=== PATIENT | male | born 1935 | race Caucasian/White ===

== ENCOUNTER 2016-11-10 19:40 | Inpatient (IN) ==
--- NOTE | 2016-11-10 19:57 | Emergency Department Note ---
Disposition Clinical Impression: Abdominal pain Qualifiers: Abdominal location: generalized Qualified Code(s): R10.84 - Generalized abdominal pain Pancreatitis, acute Qualifiers: Pancreatitis type: unspecified pancreatitis type Acute pancreatitis complication: unspecified Qualified Code(s): K85.90 - Acute pancreatitis without necrosis or infection, unspecified Disposition: Admitted As Inpatient Condition: Fair Referrals: Unassigned,Provider [Non-Partnered Physician] - Forms: Work/School Release, ED Satisfaction Letter Abdominal Pain HPI - General Chief Complaint: ED Abdominal Pain Stated Complaint: ABD pain Time Seen by Provider: 11/10/16 19:51 Source: patient, EMS Nursing Notes Reviewed: Yes Vital Signs Reviewed: Yes - History of Present Illness HPI Narrative: Mr. John, an 81-year-old male, presents from the [facility] via EMS with chief complaint of abdominal pain. Onset last night; patient is unsure if it was acute or gradual in onset. Described as an epigastric dullness with intermittent epigastric sharpness. It is progressed and to now include periumbilical and hypogastric pain also with underlying dullness and intermittent sharpness. Improved with a reclined position, worsens when sitting upright. Patient denies fever, chills, nausea, vomiting, chest pains, palpitations, changes in appetite, diarrhea, constipation, melena, hematochezia , difficulty with urination. He does not slightly darker urine. Patient currently anticoagulated on eliquis. PMH per [facility] documentation: A. 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 Medications: Albuterol, gabapentin 600 mg by mouth 3 times a day, aspirin 81 mg daily, metoprolol 50 mg twice a day, digoxin 0.125 mg daily, translucent and to a gram daily, apixiban 5 mg twice a day. Pain Scale: 10 - Related Data Allergies Allergy/AdvReac Type Severity Reaction Status Date / Time aspirin AdvReac Nausea Verified 11/10/16 19:50 codeine AdvReac Nausea Verified 11/10/16 19:50 Sulfa (Sulfonamide AdvReac Hives Verified 11/10/16 19:50 Antibiotics) All systems ED: reviewed and negative except as stated. Constitutional: Denies: fever, chills, weakness Cardiovascular: Denies: chest pain, palpitations, dyspnea on exertion, orthopnea , edema, syncope Respiratory: Denies: cough, dyspnea, wheezes Gastrointestinal: Reports: abdominal pain. Denies: nausea, vomiting, diarrhea, constipation, hematemesis, melena, hematochezia Genitourinary: Denies: urgency, dysuria, frequency Musculoskeletal: Denies: back pain, neck pain Integumentary: Denies: rash Neurological: Denies: headache, weakness Hematological/Lymphatic: Reports: easy bleeding, easy bruising Abdominal Pain PMH - Past Medical History Medical history: Reports: atrial fibrillation, cancer, COPD, hyperlipidemia, hypertension, other Male Surgical History: Reports: appendectomy Psychiatric history: Reports: no psych history - Social History Smoking status: Current some day smoker Alcohol use: Reports: none Drug use: Reports: none Physical Exam General: Patient is alert, oriented, and in no acute distress. HEENT: No facial asymmetry. Head is normocephalic and atraumatic. PERRLA. Oral mucosa moist. Trachea midline. Cardiovascular: Heart regular rate and rhythm without clicks, rubs, gallops, or murmurs. No JVD. PMI nondisplaced. Respiratory: Symmetric chest rise with good respiratory effort. Bilateral breath sounds are clear without wheezing, crackles, or rhonchi. Abdomen: Bowel sounds present normoactive x-4 quadrants. Abdomen is soft, nondistended, and without guarding. Tenderness in epigastrium, periumbilical, and hypogastrium. Psych: Patient's affect is appropriate for situation. - General Limitations: no limitations General appearance: alert, in no apparent distress Course Course Narrative: Lab work from the [facility] resulted to 11/10/16: Influenza A negative influenza B negative WBC 8.9 Hgb 12.0 HCT 36.6 PLT 248.0 Calcium 8.7 Sodium 140 Potassium 4.2 Chloride 107 CO2 26 Glucose 124 Viewing 9 Creatinine 0.96 eGFR >60 Urinalysis performed at the [facility] resulted 11/10/16: Clarity clear Color yellow Urine glucose negative Urine bilirubin negative Urine ketones negative Specific gravity 1.013 Urine occult blood negative Urine pH 5.5 Urine protein trace Urobilinogen negative Urine nitrite negative Urine leukocyte esterace negative Patient's urinalysis is not concerning for UTI. CBC is not concerning for leukocytosis or anemia. My clinical differential still includes pancreatitis, possible AAA, possible embolic mesenteric ischemia. Vital Signs Temperature 97.5 F L 11/10/16 19:41 Pulse Rate 67 11/10/16 19:41 Respiratory Rate 18 11/10/16 19:41 Blood Pressure 121/77 11/10/16 19:41 O2 Sat by Pulse Oximetry 95 11/10/16 19:41 Temperature 97.5 F L 11/10/16 19:41 Pulse Rate 73 11/10/16 21:38 Respiratory Rate 16 11/10/16 21:38 Blood Pressure 125/70 11/10/16 21:38 O2 Sat by Pulse Oximetry 90 L 11/10/16 21:40 Oxygen Delivery Oxygen Delivery Nasal Cannula Abdominal Pain - MDM Narrative Medical decision making narrative: I examined this patient and my medical decision-making was reviewed with the SPECIAL WARFARE OPERATOR/PA/Advanced Practice Nurse/Resident Physician. I agree with the documented findings, disposition and treatment plan as described except to the extent set forth below. Patient was seen and evaluated on arrival with EMS and Dr. Zelaya, I agree with his evaluation and management plan, supervise care the patient up today. Patient presents with abdominal pain and a sense of epigastric and fingers down to his umbilicus. Nonsurgical exam here. [facility] and an [facility]ray no CT was done. EKG CT of his abdomen and then reassess. He is in agreement with plan. We will give him some for pain and nausea also. Abdomen/Pelvis CTA 11/10/16 20:01 IMPRESSION: 1. No aortic dissection, aneurysm, or other acute vascular abnormality. 2. Diffuse peripancreatic stranding with a small volume of fluid in the right upper quadrant and pelvis. Findings most likely represent acute uncomplicated pancreatitis. Other less likely etiologies include peptic ulcer disease and acute cholecystitis. Recommend correlation with serum amylase and lipase and right upper quadrant ultrasound as clinically indicated. 3. COPD. 4. Nonspecific mildly enlarged distal right paratracheal lymph node. D/ / Gary Shaw MD / Gary Shaw MD Interpreting Provider: Gary Shaw MD Chest CTA 11/10/16 20:01 IMPRESSION: 1. No aortic dissection, aneurysm, or other acute vascular abnormality. 2. Diffuse peripancreatic stranding with a small volume of fluid in the right upper quadrant and pelvis. Findings most likely represent acute uncomplicated pancreatitis. Other less likely etiologies include peptic ulcer disease and acute cholecystitis. Recommend correlation with serum amylase and lipase and right upper quadrant ultrasound as clinically indicated. 3. COPD. 4. Nonspecific mildly enlarged distal right paratracheal lymph node. D/ / Gary Shaw MD / Gary Shaw MD Interpreting Provider: Gary Shaw MD 2000 hrs.: Patient's lipase is elevated along with his CT findings of acute pancreatitis or guarding and bring him into the hospital. This pain is doing better after getting several doses of morphine here and antibiotics. He still nothing by mouth at this time. Waiting on hospitalist call back. - Medical Records Medical records reviewed: Yes I reviewed the patient's medical records. - Lab Data Lab results reviewed: Yes I reviewed the patient's lab results. Lab results narrative: See course narrative for additional lab workup provided by the [facility]. Lab Results 11/10/16 11/10/16 Range/Units 20:35 20:35 Lactic Acid 1.0 (0.5-2.2) mmol/L Total Bilirubin 1.8 H (0.2-1.2) mg/dL Direct Bilirubin 0.8 H (0.0-0.5) mg/dL Indirect Bilirubin 1.0 (0.0-1.2) mg/dL AST 95 H (5-34) Units/L ALT 99 H (0-55) Units/L Alkaline Phosphatase 132 H (38-126) Units/L Serum Total Protein 6.1 (6.0-8.3) g/dL Albumin 3.5 (3.5-5.0) g/dL Globulin 2.6 (2.4-3.5) g/dL Albumin/Globulin Ratio 1.3 (1.1-2.2) Lipase 3030 H (8-78) Units/L - EKG Data EKG attestation: Yes I reviewed and interpreted this EKG. EKG results narrative: EKG dated 11/10/16 at 19:51 interpreted as atrial fibrillation with a rate of 63. Left axis. Compared to previous dated 09/20/2011 which is read as sinus rhythm. Patient's atrial fibrillation is chronic versus anticoagulate as a look was and rate controlled with metoprolol and digoxin.
[2016-11-10] MEDS ORDERED: Ondansetron 4 MG/2 ML VIAL IVP STA (20:00)
[2016-11-10 20:54] LABS: Albumin 3.5 g/dL (3.5-5.0); Albumin/Globulin Ratio 1.3 (1.1-2.2); Bilirubin,Direct 0.8 mg/dL (0.0-0.5); Bilirubin,Total 1.8 mg/dL (0.2-1.2); Globulin 2.6 g/dL (2.4-3.5); Total Protein 6.1 g/dL (6.0-8.3)
[2016-11-10] MEDS ORDERED: *HR* Morphine 2 MG/ML SYRINGE IVP ONE (21:25)
[2016-11-10] MEDS ORDERED: 0.9 % Sodium Chloride 1,000 ML IVC ONE ×2 (21:25→22:16)
[2016-11-10] MEDS ORDERED: *HR* Morphine 2 MG/ML SYRINGE IVP STA (21:57)
[2016-11-10] MEDS ORDERED: Pantoprazole 40 MG VIAL IVP ONE (22:15)
[2016-11-10] MEDS ORDERED: Ondansetron 4 MG/2 ML VIAL IVP PRN (23:29)
[2016-11-10] MEDS ORDERED: Naloxone 0.4 MG/ML INJ IVP PRN (23:29)
[2016-11-10] MEDS ORDERED: 0.9 % Sodium Chloride 1,000 ML IVC SCH (23:30)
[2016-11-10] MEDS ORDERED: *HR* Morphine 30 MG/ 30 ML PCA IVC PRN (23:32)
--- NOTE | 2016-11-10 23:37 | Internal Med History&Physical ---
<Flor Watkins - Last Filed: 11/11/16 00:37> Date of Encounter: 11/10/16 Time of Encounter: 23:35 Assessment and Plan (1) Pancreatitis, acute Current visit: Yes Status: Acute IVF pain control supplemental O2 PRN MRCP repeat labs in AM Qualifiers: Pancreatitis type: unspecified pancreatitis type Acute pancreatitis complication: unspecified Qualified Code(s): K85.90 - Acute pancreatitis without necrosis or infection, unspecified (2) A-fib Current visit: Yes Status: Chronic rate controlled in sinus rhythm during my physical continue home medication Qualifiers: Atrial fibrillation type: paroxysmal Qualified Code(s): I48.0 - Paroxysmal atrial fibrillation (3) COPD (chronic obstructive pulmonary disease) Current visit: Yes Status: Chronic continue home medication Qualifiers: COPD type: unspecified COPD Qualified Code(s): J44.9 - Chronic obstructive pulmonary disease, unspecified (4) HTN (hypertension) Current visit: Yes Status: Chronic continue home medication Qualifiers: Hypertension type: essential hypertension Qualified Code(s): I10 - Essential (primary) hypertension Internal Medicine - H&P: HPI Chief complaint: abdominal pain Admitted From: Hospital to Hospital Transfer Plans for Post Hospital Care: Home History of present illness: Mr. John is a 81 year old male with a PMH of HTN, HLD, paroxysmal a-fib, who has a CC of abdominal pain x2 days. He states that the pain started yesterday morning and is located high, under his ribs. Nothing makes the pain better or worse. He denies associated nausea, vomiting, diarrhea, shortness of breath, or chest pain. Poor historian at time of interview. Past Med Surg Social Fam HX - Past Medical History Source: old records reviewed Medical history: atrial fibrillation, cancer (bladder), COPD, hyperlipidemia, hypertension, other (thalassemia, BPH, hydrocephalus s/p shunt) Psychiatric history: no psych history - Past Surgical History Surgical History: appendectomy, hip replacement, other (hydrocephalus shunt) - Social History Smoking Status: Former smoker Smokeless Tobacco Status: No Alcohol use: none Drug use: none - Family History Daughter Name: Courtney Dickens Age: 45 Hx Family Cardiac Disorders: No Hx Family Respiratory Disorders: Yes (Asthma) Hx Family Cancer: No Hx Family GI Disorders: No Hx Family Genitourinary Disorders: No Hx Family Endocrine Disorder: No Hx Family Musculoskeletal Disorders: No Hx Family Neuromuscular Disorders: No Hx Family Neurologic Disorders: No Hx Family HEENT Disorders: No Hx Family Autoimmune Disorders: No Hx Family Reproductive Disorders: No Hx Family Psychosocial Disorders: No Hx Family Medical Disorders: Yes (thalathemia) Internal Medicine - H&P: Meds Albuterol Sulfate [Albuterol Inhaler] 2 puff IH QID PRN 11/10/16 [History] Apixaban [Eliquis] 5 mg PO BID 11/10/16 [History] Aspirin Enteric Coated [Aspirin EC] 81 mg PO DAILY 11/10/16 [History] Digoxin [Lanoxin] 0.125 mg PO DAILY 11/10/16 [History] Gabapentin [Neurontin] 600 mg PO TID 11/10/16 [History] Lidocaine 4% CRM (LMX) [Lmx 4] 1 appl TP TID 11/10/16 [History] Metoprolol [Lopressor] 50 mg PO BID 11/10/16 [History] Terazosin HCl 10 mg PO HS 11/10/16 [History] Allergies aspirin Adverse Reaction (Verified 11/10/16 19:50) Nausea codeine Adverse Reaction (Verified 11/10/16 19:50) Nausea Sulfa (Sulfonamide Antibiotics) Adverse Reaction (Verified 11/10/16 19:50) Hives All Systems PM: A 10-system review of systems was performed and is negative for pertinent findings except as documented above in the HPI. - Constitutional Constitutional: no chills, no fever(s), no night sweats - EENT Eyes: no change in vision, no discharge, no pain, no photophobia Ears: no ear discharge, no ear pain, no tinnitus Nose, mouth and throat: no dysphagia, no nasal discharge, no neck pain, no sore throat - Cardiovascular Cardiovascular ROS IM: no chest pain, no diaphoresis, no dyspnea, no lightheadedness, no palpitations, no syncope - Respiratory Respiratory: no cough, no dyspnea, no wheezing, no excessive phlegm production - Gastrointestinal Gastrointestinal: abdominal pain, no diarrhea, no hematemesis, no hematochezia, no melena, no nausea, no vomiting - Genitourinary Genitourinary ROS male: no dysuria, no urinary frequency, no urinary hesitancy, no urinary urgency - Musculoskeletal Musculoskeletal ROS IM: no numbness, no tingling - Integumentary Integumentary IM: no rash, no unusual bruising - Neurological Neurological ROS: no confusion, no convulsions, no focal weakness, no numbness, no tingling, no tremor(s) - Hematologic/Lymphatic Hematologic/Lymphatic: no easy bruising - Constitutional Vitals: Temp Pulse Resp BP Pulse Ox 97.5 F L 69 18 124/76 99 11/10/16 19:41 11/10/16 22:30 11/10/16 22:39 11/10/16 22:39 11/10/16 22:30 General appearance: Present: A&O X 3, pleasant, no acute distress - Head Head exam: Present: atraumatic, normocephalic - Eye Eye exam: Present: PERRL, conjuntiva pink, sclera anicteric Pupils: Present: PERRL - Neck Neck exam general surgery: Present: supple, trachea midline. Absent: lymphadenopathy - Respiratory Respiratory exam: Present: CTAB. Absent: accessory muscle use, rales, rhonchi, wheezes - Cardiovascular Cardiovascular exam: Present: RRR, +S1, +S2. Absent: diastolic murmur, gallop, rubs, systolic murmur - GI/Abdominal GI/Abdominal exam: Present: normal bowel sounds, soft, no peritoneal signs. Absent: distended, tenderness (patient had 12 mg morphine in ER before my physical exam - abdomen was tender per ER physician documentation) - Extremities Exam Extremities exam: Present: warm, radial pulses palpable and symetrical. Absent : calf tenderness, cyanotic, pedal edema - Neurological Exam Neurological exam: Present: CN II-XII intact, oriented X3, no focal deficits. Absent: pronater drift, facial droop, speech deficit - Skin Skin exam: Present: dry, intact <Mudduluru,Madhusudha R - Last Filed: 11/11/16 04:15> Assessment and Plan (1) Abnormal LFTs Current visit: Yes Status: Acute Will obtain MRCP to exclude cholecystitis / choledocholithiasis Internal Medicine - H&P: HPI History of present illness: Mr. John is a 81 year old male All Systems PM: A 10-system review of systems was performed and is negative for pertinent findings except as documented above in the HPI. - Constitutional Vitals: Temp Pulse Resp BP Pulse Ox 97.9 F 71 14 119/67 92 L 11/10/16 23:51 11/10/16 23:51 11/10/16 23:51 11/10/16 23:51 11/10/16 23:51 Internal Med - H&P Results - Impressions ITS Impressions Abdomen/Pelvis CTA 11/10/16 20:01 IMPRESSION: 1. No aortic dissection, aneurysm, or other acute vascular abnormality. 2. Diffuse peripancreatic stranding with a small volume of fluid in the right upper quadrant and pelvis. Findings most likely represent acute uncomplicated pancreatitis. Other less likely etiologies include peptic ulcer disease and acute cholecystitis. Recommend correlation with serum amylase and lipase and right upper quadrant ultrasound as clinically indicated. 3. COPD. 4. Nonspecific mildly enlarged distal right paratracheal lymph node. D/ / Gary Shaw MD / Gary Shaw MD Interpreting Provider: Gary Shaw MD Chest CTA 11/10/16 20:01 IMPRESSION: 1. No aortic dissection, aneurysm, or other acute vascular abnormality. 2. Diffuse peripancreatic stranding with a small volume of fluid in the right upper quadrant and pelvis. Findings most likely represent acute uncomplicated pancreatitis. Other less likely etiologies include peptic ulcer disease and acute cholecystitis. Recommend correlation with serum amylase and lipase and right upper quadrant ultrasound as clinically indicated. 3. COPD. 4. Nonspecific mildly enlarged distal right paratracheal lymph node. D/ / Gary Shaw MD / Gary Shaw MD Interpreting Provider: Gary Shaw MD - Attending Attestation I performed a history and physical examination of the patient and discussed his management with the Resident/Lacing Cutter (Dr Watkins). I reviewed the residents note and agree with the documented findings and plan of care, with additions as below. 81 year old male with a PMH of HTN, HLD, paroxysmal a-fib, [facility] with chief complaint of abdominal pain. He was evaluated in the ER in [facility] and was noted to have elevated lipase of 3030. CT abdomen and pelvis showed pancreatitis. Pt denies h/o alcohol abuse or prior h/ o cholilithiasis or hyperlipidemia. O/E: Diffuse abdominal tenderness, more in the epigastric region. A/P: Acute pancreatitis: Treat with IV fluids, analgesia; MRCP; lipid panel; NPO ; GI consultation Lab work from the [facility] resulted to 11/10/16: Influenza A negative influenza B negative WBC 8.9 Hgb 12.0 HCT 36.6 PLT 248.0 Calcium 8.7 Sodium 140 Potassium 4.2 Chloride 107 CO2 26 Glucose 124 BUN 9 Creatinine 0.96 eGFR >60 Urine nitrite negative Urine leukocyte esterace negative
[2016-11-11] MEDS ORDERED: *HR* Morphine 2 MG/ML SYRINGE IVP PRN ×3 (00:20→00:24)
[2016-11-11] MEDS: 0.9 % Sodium Chloride 1,000 ML IVC SCH ×5 (01:50→23:02)
[2016-11-11 05:17] LABS: Basophils % 0.3 %; Eosinophils # 0.2 K/mcL (0.0-0.6); Hematocrit 32.9 % (37.5-50.1); Hemoglobin 9.9 g/dL (12.9-16.9); Immature Granulocytes % 0.4 % (0-4); Lymphocytes # 1.7 K/mcL (0.6-4.6); Lymphocytes % 24.3 %; Mean Corpuscular HGB Conc 30.1 g/dL (31.6-35.5); Mean Corpuscular Hemoglobin 19.5 pg (28.0-33.3); Mean Corpuscular Volume 64.9 fL (83.0-100.0); Mean Platelet Volume 10.1 fL (9.4-12.4); Monocytes # 0.8 K/mcL (0.0-1.3); Monocytes % 10.8 %; Neutrophils # 4.3 K/mcL (1.6-8.9); Platelet Count 178 K/mcL (140-400); Red Blood Count 5.07 M/mcL (4.19-5.50); Red Cell Distribution Width 18.5 % (11.5-14.5); Segmented Neutrophils % 61.2 %
[2016-11-11] MEDS: Pantoprazole 40 MG VIAL IVP SCH (05:26)
[2016-11-11 05:31] LABS: Platelet Estimate Normal (Normal)
[2016-11-11 05:32] LABS: Microcytosis Present (Not Present); Poikilocytosis 2+ (Not Present); Target Cells 1+ (Not Present); Tear Drop Cells 1+ (Not Present)
[2016-11-11 05:39] LABS: Alanine Aminotransferase 65 Units/L (0-55); Albumin/Globulin Ratio 1.4 (1.1-2.2); Alkaline Phosphatase 107 Units/L (38-126); Aspartate Amino Transferase 53 Units/L (5-34); BUN/Creatinine Ratio 14 (6-26); Bilirubin,Total 1.4 mg/dL (0.2-1.2); Blood Urea Nitrogen 12 mg/dL (8-26); Calcium 7.8 mg/dL (8.6-10.8); Carbon Dioxide 23 mEq/L (19-29); Chloride 112 mEq/L (98-109); Chol/HDL Ratio 3.5 (0-4.9); Cholesterol 92 mg/dL (< 200); Globulin 2.1 g/dL (2.4-3.5); Glucose 89 mg/dL (70-99); HDL Cholesterol 26 mg/dL (40-59); LDL Cholesterol,Calculated 50 mg/dL (0-99); Magnesium 1.9 mg/dL (1.6-2.6); Osmolality,Calculated 289 (280-300); Phosphorous 3.9 mg/dL (2.3-4.7); Potassium 4.6 mEq/L (3.5-4.5); Sodium 140 mEq/L (136-145); Total Protein 5.1 g/dL (6.0-8.3); Triglycerides 80 mg/dL (< 150); eGFR For African Americans > 60 (> 60); eGFR For Non-African Americans > 60 (> 60)
[2016-11-11] MEDS: *HR* Morphine 2 MG/ML SYRINGE IVP PRN ×4 (07:38→23:06)
[2016-11-11] MEDS: *HR* Digoxin 0.125 MG TABLET PO SCH (09:24)
[2016-11-11] MEDS: Gabapentin 300 MG CAPSULE PO SCH ×3 (09:24→20:48)
[2016-11-11] MEDS: Acetaminophen 325 MG TABLET PO PRN ×3 (09:24→22:59)
--- NOTE | 2016-11-11 09:38 | Internal Med Progress Note ---
Date of Encounter: 11/11/16 Time of Encounter: 09:35 - Assessment and plan (1) Pancreatitis, acute Current Visit: Yes Status: Acute Assessment and plan: Abdominal pain, lipase more than 3000, CT abdomen also suggestive of acute pancreatitis. Unclear etiology, no history of alcohol abuse or gallstones. mild elevation of the liver enzymes, scheduled for MRCP. Will treat conservatively, IV fluids, nothing by mouth except ice chips, analgesics and antiemetics. CT abdomen does not show any abscess, uncomplicated pancreatitis at this time. Gradually advance diet as tolerated. Qualifiers: Pancreatitis type: unspecified pancreatitis type Acute pancreatitis complication: unspecified Qualified Code(s): K85.90 - Acute pancreatitis without necrosis or infection, unspecified (2) Abnormal LFTs Current Visit: Yes Status: Acute Assessment and plan: as above. today it has trended down, will continue to monitor (3) A-fib Current Visit: Yes Status: Chronic Assessment and plan: rate is stable, currently on AC. will conitnue home meds. Qualifiers: Atrial fibrillation type: paroxysmal Qualified Code(s): I48.0 - Paroxysmal atrial fibrillation (4) COPD (chronic obstructive pulmonary disease) Current Visit: Yes Status: Chronic Assessment and plan: stable, not in exacerbation. continue home nebs. Qualifiers: COPD type: unspecified COPD Qualified Code(s): J44.9 - Chronic obstructive pulmonary disease, unspecified (5) HTN (hypertension) Current Visit: Yes Status: Chronic Assessment and plan: stable. Qualifiers: Hypertension type: essential hypertension Qualified Code(s): I10 - Essential (primary) hypertension - Time Spent With Patient 25 - 35 minutes - Subjective Interval history: seen at the bedside, admitted for acute pancreatitis. Social complaining of abdominal pain, rates it as 7, on morphine for the pain. Also complains of mild headache. Denies any nausea or vomiting. No fever, has not had any bowel movement today. Has remained nothing by mouth overnight, on IV fluids. No history of gallbladder stones, not an alcoholic. - Constitutional Vitals: Temp Pulse Resp BP Pulse Ox 97.9 F 71 18 113/62 92 L 11/11/16 08:31 11/11/16 08:31 11/11/16 08:31 11/11/16 08:31 11/11/16 08:31 General appearance: Present: A&O X 3, pleasant, no acute distress Exam: Neck supple. Chest bilateral clear, no added sounds. CVS S1-S2, no murmurs rubs or gallops. Abdomen soft, mild tenderness on the epigastric and umbilical region, and bowel sounds are present. Extremities no edema. Neuro no focal deficits, alert and awake and oriented 3. Skin appears dry, no rashes. Internal Medicine: Result - Labs CBC & Chem 7: 11/11/16 05:00 11/11/16 05:00 Labs: Short CBC 11/11/16 Range/Units 05:00 WBC 7.0 (4.3-11.1) K/mcL Hgb 9.9 L (12.9-16.9) g/dL Hct 32.9 L (37.5-50.1) % Plt Count 178 (140-400) K/mcL Neutrophils # 4.3 (1.6-8.9) K/mcL BMP 11/11/16 05:00 Sodium 140 Potassium 4.6 H Chloride 112 H Carbon Dioxide 23 BUN 12 Creatinine 0.86 Glucose 89 Calcium 7.8 L Liver Function 11/11/16 Range/Units 05:00 Total Bilirubin 1.4 H (0.2-1.2) mg/dL AST 53 H (5-34) Units/L ALT 65 H (0-55) Units/L Alkaline Phosphatase 107 (38-126) Units/L Albumin 3.0 L (3.5-5.0) g/dL Consult Discharge Plan - Plan [facility]errals: [facility] [Primary Care Provider] -
[2016-11-11] MEDS: Aspirin Enteric Coated 81 MG Tablet PO SCH (10:44)
[2016-11-11] MEDS: APIXABAN 5 MG TABLET PO SCH ×2 (10:44→20:47)
[2016-11-12] MEDS: Acetaminophen 325 MG TABLET PO PRN (05:43)
[2016-11-12] MEDS: 0.9 % Sodium Chloride 1,000 ML IVC SCH ×4 (05:44→22:04)
[2016-11-12] MEDS: Pantoprazole 40 MG VIAL IVP SCH (05:44)
[2016-11-12] MEDS: APIXABAN 5 MG TABLET PO SCH ×2 (07:53→22:04)
[2016-11-12] MEDS: Aspirin Enteric Coated 81 MG Tablet PO SCH (07:53)
[2016-11-12] MEDS: *HR* Digoxin 0.125 MG TABLET PO SCH (07:53)
[2016-11-12] MEDS: Gabapentin 300 MG CAPSULE PO SCH ×3 (07:54→22:04)
[2016-11-12 08:32] LABS: Basophils % 0.2 %; Eosinophils # 0.3 K/mcL (0.0-0.6); Eosinophils % 3.3 %; Hematocrit 30.6 % (37.5-50.1); Hemoglobin 9.5 g/dL (12.9-16.9); Immature Granulocytes % 0.5 % (0-4); Lymphocytes # 1.5 K/mcL (0.6-4.6); Lymphocytes % 18.3 %; Mean Corpuscular Hemoglobin 20.3 pg (28.0-33.3); Mean Corpuscular Volume 65.5 fL (83.0-100.0); Monocytes # 0.9 K/mcL (0.0-1.3); Monocytes % 10.6 %; Platelet Count 151 K/mcL (140-400); Red Blood Count 4.67 M/mcL (4.19-5.50); Segmented Neutrophils % 67.1 %
[2016-11-12 08:40] LABS: Neutrophils # 5.6 K/mcL (1.6-8.9)
[2016-11-12 08:51] LABS: Alanine Aminotransferase 34 Units/L (0-55); Albumin 2.6 g/dL (3.5-5.0); Albumin/Globulin Ratio 1.1 (1.1-2.2); Alkaline Phosphatase 81 Units/L (38-126); Aspartate Amino Transferase 21 Units/L (5-34); BUN/Creatinine Ratio 14 (6-26); Bilirubin,Direct 0.7 mg/dL (0.0-0.5); Bilirubin,Indirect 0.7 mg/dL (0.0-1.2); Bilirubin,Total 1.4 mg/dL (0.2-1.2); Blood Urea Nitrogen 10 mg/dL (8-26); Calcium 7.4 mg/dL (8.6-10.8); Carbon Dioxide 20 mEq/L (19-29); Chloride 115 mEq/L (98-109); Globulin 2.3 g/dL (2.4-3.5); Glucose 74 mg/dL (70-99); Osmolality,Calculated 290 (280-300); Sodium 141 mEq/L (136-145); Total Protein 4.9 g/dL (6.0-8.3); eGFR For African Americans > 60 (> 60); eGFR For Non-African Americans > 60 (> 60)
[2016-11-12 09:15] LABS: Anisocytosis 1+ (Not Present); Hypochromasia Present (Not Present); Microcytosis Present (Not Present); Platelet Estimate Normal (Normal)
--- NOTE | 2016-11-12 09:33 | Internal Med Progress Note ---
Date of Encounter: 11/12/16 Time of Encounter: 09:30 - Assessment and plan (1) Pancreatitis, acute Current Visit: Yes Status: Acute Assessment and plan: Abdominal pain, lipase more than 3000, CT abdomen also suggestive of acute pancreatitis. Unclear etiology, no history of alcohol abuse or gallstones. mild elevation of the liver enzymes, scheduled for MRCP, however could not be done given h/o shunt in the brain, will need records. clinically better, will start clears today. CT abdomen does not show any abscess, uncomplicated pancreatitis at this time. Gradually advance diet as tolerated. Qualifiers: Pancreatitis type: unspecified pancreatitis type Acute pancreatitis complication: unspecified Qualified Code(s): K85.90 - Acute pancreatitis without necrosis or infection, unspecified (2) Abnormal LFTs Current Visit: Yes Status: Acute Assessment and plan: as above. today it has trended down, will continue to monitor (3) A-fib Current Visit: Yes Status: Chronic Assessment and plan: rate is stable, currently on AC. will conitnue home meds. Qualifiers: Atrial fibrillation type: paroxysmal Qualified Code(s): I48.0 - Paroxysmal atrial fibrillation (4) COPD (chronic obstructive pulmonary disease) Current Visit: Yes Status: Chronic Assessment and plan: stable, not in exacerbation. continue home nebs. Qualifiers: COPD type: unspecified COPD Qualified Code(s): J44.9 - Chronic obstructive pulmonary disease, unspecified (5) HTN (hypertension) Current Visit: Yes Status: Chronic Assessment and plan: stable. Qualifiers: Hypertension type: essential hypertension Qualified Code(s): I10 - Essential (primary) hypertension - Time Spent With Patient 25 - 35 minutes - Subjective Interval history: seen at the bedside, admitted for acute pancreatitis. reports that he feels better than yest, mild pain on the left upper abdomen. Denies any nausea or vomiting. No fever, passing gas Has remained nothing by mouth overnight, on IV fluids. No history of gallbladder stones, not an alcoholic. - Constitutional Vitals: Temp Pulse Resp BP Pulse Ox 97.5 F L 64 18 134/71 91 L 11/12/16 08:20 11/12/16 08:20 11/12/16 08:20 11/12/16 08:20 11/12/16 08:20 General appearance: Present: A&O X 3, pleasant, no acute distress Exam: Neck supple. Chest bilateral clear, no added sounds. CVS S1-S2, no murmurs rubs or gallops. Abdomen soft,non tender, and bowel sounds are present. Extremities no edema. Neuro no focal deficits, alert and awake and oriented 3. Skin appears dry, no rashes. Internal Medicine: Result - Labs CBC & Chem 7: 11/12/16 08:06 11/12/16 08:06 Labs: Short CBC 11/12/16 Range/Units 08:06 WBC 8.4 (4.3-11.1) K/mcL Hgb 9.5 L (12.9-16.9) g/dL Hct 30.6 L (37.5-50.1) % Plt Count 151 (140-400) K/mcL Neutrophils # 5.6 (1.6-8.9) K/mcL BMP 11/12/16 08:06 Sodium 141 Potassium 4.0 Chloride 115 H Carbon Dioxide 20 BUN 10 Creatinine 0.70 L Glucose 74 Calcium 7.4 L Liver Function 11/12/16 Range/Units 08:06 Total Bilirubin 1.4 H (0.2-1.2) mg/dL Direct Bilirubin 0.7 H (0.0-0.5) mg/dL AST 21 (5-34) Units/L ALT 34 (0-55) Units/L Alkaline Phosphatase 81 (38-126) Units/L Albumin 2.6 L (3.5-5.0) g/dL Consult Discharge Plan - Plan [facility]errals: [facility] [Primary Care Provider] -
[2016-11-12] MEDS: *HR* Morphine 2 MG/ML SYRINGE IVP PRN ×3 (10:03→22:05)
[2016-11-13] MEDS: *HR* Morphine 2 MG/ML SYRINGE IVP PRN (00:35)
[2016-11-13] MEDS: Acetaminophen 325 MG TABLET PO PRN ×2 (00:35→07:49)
[2016-11-13] MEDS: Pantoprazole 40 MG VIAL IVP SCH (06:22)
[2016-11-13] MEDS: Gabapentin 300 MG CAPSULE PO SCH ×3 (07:43→20:18)
[2016-11-13] MEDS: 0.9 % Sodium Chloride 1,000 ML IVC SCH ×2 (07:43→19:30)
[2016-11-13] MEDS: Aspirin Enteric Coated 81 MG Tablet PO SCH (07:43)
[2016-11-13] MEDS: *HR* Digoxin 0.125 MG TABLET PO SCH (07:43)
[2016-11-13] MEDS: APIXABAN 5 MG TABLET PO SCH (07:43)
[2016-11-13 08:39] LABS: Basophils % 0.3 %; Eosinophils # 0.3 K/mcL (0.0-0.6); Eosinophils % 3.9 %; Hematocrit 30.2 % (37.5-50.1); Hemoglobin 9.4 g/dL (12.9-16.9); Immature Granulocytes % 0.4 % (0-4); Lymphocytes % 14.1 %; Mean Corpuscular HGB Conc 31.1 g/dL (31.6-35.5); Mean Corpuscular Hemoglobin 20.2 pg (28.0-33.3); Mean Corpuscular Volume 64.8 fL (83.0-100.0); Mean Platelet Volume 9.1 fL (9.4-12.4); Monocytes # 0.9 K/mcL (0.0-1.3); Monocytes % 12.6 %; Platelet Count 145 K/mcL (140-400); Red Blood Count 4.66 M/mcL (4.19-5.50); Red Cell Distribution Width 17.7 % (11.5-14.5); Segmented Neutrophils % 68.7 %
[2016-11-13 08:51] LABS: BUN/Creatinine Ratio 9 (6-26); Blood Urea Nitrogen 6 mg/dL (8-26); Calcium 7.8 mg/dL (8.6-10.8); Carbon Dioxide 24 mEq/L (19-29); Chloride 112 mEq/L (98-109); Glucose 87 mg/dL (70-99); Osmolality,Calculated 283 (280-300); Potassium 3.5 mEq/L (3.5-4.5); Sodium 138 mEq/L (136-145); eGFR For African Americans > 60 (> 60); eGFR For Non-African Americans > 60 (> 60)
[2016-11-13 09:06] LABS: Microcytosis Present (Not Present)
[2016-11-13 09:29] LABS: Alanine Aminotransferase 25 Units/L (0-55); Albumin 2.5 g/dL (3.5-5.0); Alkaline Phosphatase 73 Units/L (38-126); Aspartate Amino Transferase 16 Units/L (5-34); Bilirubin,Direct 0.8 mg/dL (0.0-0.5); Bilirubin,Indirect 0.8 mg/dL (0.0-1.2); Bilirubin,Total 1.6 mg/dL (0.2-1.2); Globulin 2.4 g/dL (2.4-3.5); Lipase 146 Units/L (8-78); Total Protein 4.9 g/dL (6.0-8.3)
--- NOTE | 2016-11-13 09:47 | Gastroenterology Consult Note ---
<Desirae Birch - Last Filed: 11/13/16 12:11> Date of Encounter: 11/13/16 Time of Encounter: 11:05 - Assessment and plan (1) Abnormal LFTs Current Visit: Yes Status: Acute Assessment and plan: Awaiting MRCP results. LFTs trending to normal. Suspect gallstone pancreatitis. If MRCP negative for obstruction, recommend cholecystectomy with IOC. (2) Pancreatitis, acute Current Visit: Yes Status: Acute Assessment and plan: BISAP 1. Supportive care. Qualifiers: Pancreatitis type: unspecified pancreatitis type Acute pancreatitis complication: unspecified Qualified Code(s): K85.90 - Acute pancreatitis without necrosis or infection, unspecified (3) Microcytic anemia Current Visit: Yes Status: Chronic (4) Thalassemia Current Visit: Yes Status: Chronic Qualifiers: Thalassemia type: unspecified type Qualified Code(s): D56.9 - Thalassemia, unspecified - Time Spent With Patient Total time spent is greater than 50% in coordination of care (as documented) at patient's floor/unit and/or counseling patient: GI History of Present Illness - Data of Consult Patient: new to practice Consult date: 11/13/16 Requesting Physician: Patricia Abdalla - Consult Narrative Reason for consult: Pancreatitis, elev LFTs History of present illness: Mr. 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 [facility] with chief complaint of abdominal pain. Onset last night; patient is unsure if it was acute or gradual in onset. Described as an epigastric dullness with intermittent epigastric sharpness. It had progressed and now includes periumbilical and hypogastric pain also with underlying dullness and intermittent sharpness. Improved with a reclined position, worsens when sitting upright. Patient denies fever, chills, nausea, vomiting, chest pains, palpitations, changes in appetite, diarrhea, constipation, melena, hematochezia , difficulty with urination. He does note slightly darker urine. Patient admits a long hx of anemia, he could not tell me what his baseline is generally. Family at bedside would prefer patient be evaluated for anemia at this time. He has a remote hx of heavy etoh use, but none for several decades. He lives with his daughter, who was present at bedside at the time of my exam. Still has some residual abdominal discomfort today, patient was audibly wheezing on nasal cannula. Colonoscopy: >5 years ago EGD: 2-3 years? Past Med Surg Social Fam HX - Past Medical History Medical history: atrial fibrillation, cancer (bladder), COPD, hyperlipidemia, hypertension, other (thalassemia, BPH, hydrocephalus s/p shunt) Psychiatric history: no psych history - Past Surgical History Surgical History: appendectomy, hip replacement, other (hydrocephalus shunt) - Social History Smoking Status: Former smoker Smokeless Tobacco Status: No Alcohol use: none Drug use: none - Family History Daughter Name: Courtney Dickens Age: 45 Hx Family Cardiac Disorders: No Hx Family Respiratory Disorders: Yes (Asthma) Hx Family Cancer: No Hx Family GI Disorders: No Hx Family Genitourinary Disorders: No Hx Family Endocrine Disorder: No Hx Family Musculoskeletal Disorders: No Hx Family Neuromuscular Disorders: No Hx Family Neurologic Disorders: No Hx Family HEENT Disorders: No Hx Family Autoimmune Disorders: No Hx Family Reproductive Disorders: No Hx Family Psychosocial Disorders: No Hx Family Medical Disorders: Yes (thalathemia) - Gastrointestinal NSAID use: None noted Anticoagulation Use: Eliquis (last taken Sunday) Number of BM Per Day: daily Gastrointestinal: Present: abdominal pain - Constitutional Constitutional: fatigue - EENT Eyes: as per HPI Ears: Present: as per HPI Nose, mouth and throat: Present: as per HPI - Cardiovascular Cardiovascular ROS: Present: as per HPI - Respiratory Respiratory IM: Present: wheezing - Neurological ROS Neurological GI: Present: as per HPI - Hematologic/Lymphatic Hematologic/Lymphatic pediatric: Present: as per HPI - Musculoskeletal Musculoskeletal ROS GI: Present: as per HPI - Integumentary Integumentary GI: Present: as per HPI - Psychiatric ROS Psychiatric GI: Present: as per HPI - Endocrine Endocrine IM: Present: as per HPI - Constitutional Vitals: Temp Pulse Resp BP Pulse Ox 97.8 F 78 17 145/66 94 L 11/13/16 07:00 11/13/16 07:00 11/13/16 07:00 11/13/16 07:00 11/13/16 07:00 General appearance: Present: cooperative, A&O X 3, no acute distress, answers questions appropriately - Head Head exam: Present: atraumatic, normocephalic - Eye Eye exam: Present: normal appearance, sclera anicteric - ENT ENT exam: Present: mucous membranes moist Additional comments: edentulous - Neck Neck exam general surgery: Present: normal inspection, trachea midline - Respiratory Respiratory exam: Present: accessory muscle use, wheezes - Cardiovascular Cardiovascular exam: Present: RRR, +S1, +S2 - GI/Abdominal GI/Abdominal exam: Present: soft, tenderness - Rectal Rectal exam: Present: deferred - Extremities Exam Extremities exam: Present: warm - Neurological Exam Neurological exam: Present: no focal deficits - Psychiatric Psychiatric exam: Present: normal affect, normal mood - Skin Skin exam: Present: pallor Additional comments: multiple areas of bruising noted on upper extremities. Results - Labs CBC & Chem 7: 11/13/16 08:34 11/13/16 08:34 Labs: Last Result Calcium 7.8 mg/dL (8.6-10.8) L 11/13/16 08:34 Triglycerides 80 mg/dL (< 150) 11/11/16 05:00 Entire Visit Hgb 9.4 g/dL (12.9-16.9) L 11/13/16 08:34 Hct 30.2 % (37.5-50.1) L 11/13/16 08:34 Total Bilirubin 1.6 mg/dL (0.2-1.2) H 11/13/16 08:34 AST 16 Units/L (5-34) 11/13/16 08:34 ALT 25 Units/L (0-55) 11/13/16 08:34 Lipase 146 Units/L (8-78) H 11/13/16 08:34 Consult Discharge Plan - Plan [facility]errals: [facility] Care Provider[facility] - 11/23/16 9:15 am <See Abbasi - Last Filed: 11/13/16 18:06> Time of Encounter: 18:00 - Time Spent With Patient Total time spent is greater than 50% in coordination of care (as documented) at patient's floor/unit and/or counseling patient: GI History of Present Illness - Data of Consult Requesting Physician: Patricia Abdalla - Consult Narrative History of present illness: Mr. John is a 81 year old male - Constitutional Vitals: Temp Pulse Resp BP Pulse Ox 97.7 F 100 20 166/79 92 L 11/13/16 15:52 11/13/16 15:52 11/13/16 15:52 11/13/16 15:52 11/13/16 15:52 Results - Labs CBC & Chem 7: 11/13/16 08:34 11/13/16 08:34 Labs: Last Result Calcium 7.8 mg/dL (8.6-10.8) L 11/13/16 08:34 Iron 14 mcg/dL (65-175) L 11/13/16 10:14 % Saturation 6 % (20-55) L 11/13/16 10:14 Transferrin 157 mg/dL (174-364) L 11/13/16 10:14 Triglycerides 80 mg/dL (< 150) 11/11/16 05:00 Entire Visit Hgb 9.4 g/dL (12.9-16.9) L 11/13/16 08:34 Hct 30.2 % (37.5-50.1) L 11/13/16 08:34 Total Bilirubin 1.6 mg/dL (0.2-1.2) H 11/13/16 08:34 AST 16 Units/L (5-34) 11/13/16 08:34 ALT 25 Units/L (0-55) 11/13/16 08:34 Lipase 146 Units/L (8-78) H 11/13/16 08:34 - Impressions Impressions Gallbladder Ultrasound 11/13/16 14:30 IMPRESSION: 1. Increased echogenicity of the liver suggests steatosis. 2. Gallbladder sludge. No biliary ductal dilatation. 3. Mild perihepatic ascites. D/ / Daniel Hutchinson MD / Daniel Hutchinson MD Interpreting Provider: Daniel Hutchinson MD - Attending Attestation I examined this patient and my medical decision-making was reviewed with the STOCK DRIVER/PA/Advanced Practice Nurse/Resident Physician. I agree with the documented findings, disposition and treatment plan as described except to the extent set forth below. 1: Pancreatitis: most probably gallstone pancreatitis ultrasound gallbladder does show's sludge but no CBD stone. We need gallbladder removed prior to discharge and family would like Dr. Tobias to see the patient. 2: Severe microcytic anemia/iron deficiency. Recommend EGD and colonoscopy to rule out GI causes and especially: Malignancy for the cause of his anemia.
[2016-11-13 10:44] LABS: % Iron Saturation 6 % (20-55); Iron 14 mcg/dL (65-175); Transferrin 157 mg/dL (174-364)
--- NOTE | 2016-11-13 14:00 | Electrocardiograph Report ---
[place] [id number] Test Date: 2016-11-10 Pat Name: Niko John Department: 103 Room: 3A24 Gender: M Hospital Staff Pharmacist: : [id number] Requested By: Denilson Kiser Order Number: [id number] Reading MD: Raúl Rodriguez MD Measurements Intervals [place] Rate: 63 P: [place]: 0 QRS: -42 QRSD: 94 T: 62 QT: 411 QTc: 419 Interpretive Statements POSSIBLE ATRIAL FLUTTER WITH CONTROLLED RESPONSE MARKED LEFT AXIS DEVIATION LOW QRS VOLTAGE IN EXTREMITY LEADS BASELINE ARTIFACT Electronically Signed On 11-13-2016 13:58:45 EDT by Raúl Rodriguez MD
[2016-11-13] MEDS ORDERED: Ipratropium/Albuterol Neb 3 ML IH PRN (14:18)
--- NOTE | 2016-11-13 14:54 | Internal Med Progress Note ---
Date of Encounter: 11/13/16 Time of Encounter: 14:52 - Assessment and plan (1) Pancreatitis, acute Current Visit: Yes Status: Acute Assessment and plan: Abdominal pain, lipase more than 3000 n admission, CT abdomen also suggestive of acute pancreatitis. Unclear etiology, no history of alcohol abuse or gallstones. mild elevation of the liver enzymes at the admission, scheduled for MRCP, however could not be done given h/o shunt in the brain,no records could be obtained form [place] as it was [place] ago. labs looks better including the liver fxn and the lipase. CT abdomen does not show any abscess, uncomplicated pancreatitis at this time. family concerned about abdominal pain, consulted GI, will order RUQ for possibel gallstone pancreatitis Qualifiers: Pancreatitis type: unspecified pancreatitis type Acute pancreatitis complication: unspecified Qualified Code(s): K85.90 - Acute pancreatitis without necrosis or infection, unspecified (2) Abnormal LFTs Current Visit: Yes Status: Acute Assessment and plan: as above. today it has trended down, will continue to monitor (3) A-fib Current Visit: Yes Status: Chronic Assessment and plan: rate is stable, currently on AC. will conitnue home meds. Qualifiers: Atrial fibrillation type: paroxysmal Qualified Code(s): I48.0 - Paroxysmal atrial fibrillation (4) COPD (chronic obstructive pulmonary disease) Current Visit: Yes Status: Chronic Assessment and plan: stable, not in exacerbation. continue home nebs. Qualifiers: COPD type: unspecified COPD Qualified Code(s): J44.9 - Chronic obstructive pulmonary disease, unspecified (5) HTN (hypertension) Current Visit: Yes Status: Chronic Assessment and plan: stable. Qualifiers: Hypertension type: essential hypertension Qualified Code(s): I10 - Essential (primary) hypertension (6) Microcytic anemia Current Visit: Yes Status: Chronic Assessment and plan: has h/o long standing anemia low iron and TSAT as noted in the iron panel. will supplement iron. may possible need EGD /colonosocpy, will follow GI recommendations. - Time Spent With Patient 25 - 35 minutes - Subjective Interval history: seen at the bedside, admitted for acute pancreatitis. reports that he feels better than yest, mild pain on the left upper abdomen. Denies any nausea or vomiting. leah lechugah daughter says that he was having pain yesterday after eating and the pain is not better. No fever, passing gas. Diet was advanced to clears yesterday. No history of gallbladder stones, not an alcoholic. - Constitutional Vitals: Temp Pulse Resp BP Pulse Ox 97.5 F L 68 18 105/58 93 L 11/13/16 10:54 11/13/16 10:54 11/13/16 13:27 11/13/16 10:54 11/13/16 13:27 General appearance: Present: A&O X 3, pleasant, no acute distress Exam: Neck supple. Chest bilateral clear, no added sounds. CVS S1-S2, no murmurs rubs or gallops. Abdomen soft,mild tenderness on the left upper quadrant and the back, no rebound , and bowel sounds are present. Extremities no edema. Neuro no focal deficits, alert and awake and oriented 3. Skin appears dry, no rashes. Internal Medicine: Result - Labs CBC & Chem 7: 11/13/16 08:34 11/13/16 08:34 Labs: Short CBC 11/13/16 Range/Units 08:34 WBC 7.2 (4.3-11.1) K/mcL Hgb 9.4 L (12.9-16.9) g/dL Hct 30.2 L (37.5-50.1) % Plt Count 145 (140-400) K/mcL Neutrophils # 5.0 (1.6-8.9) K/mcL BMP 11/13/16 08:34 Sodium 138 Potassium 3.5 Chloride 112 H Carbon Dioxide 24 BUN 6 L Creatinine 0.65 L Glucose 87 Calcium 7.8 L Liver Function 11/13/16 Range/Units 08:34 Total Bilirubin 1.6 H (0.2-1.2) mg/dL Direct Bilirubin 0.8 H (0.0-0.5) mg/dL AST 16 (5-34) Units/L ALT 25 (0-55) Units/L Alkaline Phosphatase 73 (38-126) Units/L Albumin 2.5 L (3.5-5.0) g/dL Consult Discharge Plan - Plan [facility]: [facility] Care Provider[facility] - 11/23/16 9:15 am
[2016-11-13] MEDS: Iron Sucrose Complex 200 MG in 0.9 % Sodium Chloride 100 ML IVPB SCH (15:49)
[2016-11-13] MEDS ORDERED: SODIUM CHLORIDE/NAHCO3/KCL/PEG 4,000 ML SOLN.RECON PO ONE (19:00)
[2016-11-14] MEDS: 0.9 % Sodium Chloride 1,000 ML IVC SCH ×2 (05:34→18:08)
[2016-11-14] MEDS: Pantoprazole 40 MG VIAL IVP SCH (05:35)
[2016-11-14 05:41] LABS: Triglycerides 61 mg/dL (< 150)
[2016-11-14 08:36] LABS: Basophils % 0.3 %; Hemoglobin 8.9 g/dL (12.9-16.9); Red Cell Distribution Width 17.6 % (11.5-14.5)
[2016-11-14 08:38] LABS: Eosinophils # 0.1 K/mcL (0.0-0.6); Eosinophils % 1.6 %; Hematocrit 29.3 % (37.5-50.1); Immature Granulocytes % 0.3 % (0-4); Immature Platelets 5.6 % (1.1-6.1); Lymphocytes % 14.1 %; Mean Corpuscular HGB Conc 30.4 g/dL (31.6-35.5); Mean Corpuscular Hemoglobin 19.7 pg (28.0-33.3); Mean Platelet Volume 10.6 fL (9.4-12.4); Monocytes # 0.8 K/mcL (0.0-1.3); Monocytes % 10.8 %; Neutrophils # 5.1 K/mcL (1.6-8.9); Platelet Count 170 K/mcL (140-400); Red Blood Count 4.51 M/mcL (4.19-5.50); Segmented Neutrophils % 72.9 %
[2016-11-14] MEDS: *HR* Digoxin 0.125 MG TABLET PO SCH (08:47)
[2016-11-14] MEDS: Gabapentin 300 MG CAPSULE PO SCH ×3 (08:47→20:40)
[2016-11-14] MEDS: Aspirin Enteric Coated 81 MG Tablet PO SCH (08:47)
[2016-11-14] MEDS: Iron Sucrose Complex 200 MG in 0.9 % Sodium Chloride 100 ML IVPB SCH (08:48)
[2016-11-14 08:57] LABS: BUN/Creatinine Ratio 8 (6-26); Calcium 7.6 mg/dL (8.6-10.8); Carbon Dioxide 20 mEq/L (19-29); Chloride 111 mEq/L (98-109); Glucose 73 mg/dL (70-99); Osmolality,Calculated 286 (280-300); Potassium 3.6 mEq/L (3.5-4.5); Sodium 140 mEq/L (136-145); eGFR For African Americans > 60 (> 60); eGFR For Non-African Americans > 60 (> 60)
[2016-11-14 08:58] LABS: Anisocytosis 1+ (Not Present); Microcytosis Present (Not Present); Ovalocytes 1+ (Not Present); Platelet Estimate Normal (Normal); Target Cells 1+ (Not Present)
[2016-11-14 09:01] LABS: Blood Urea Nitrogen 5 mg/dL (8-26)
[2016-11-14] MEDS: *HR* Morphine 2 MG/ML SYRINGE IVP PRN ×2 (09:57→18:30)
[2016-11-14] MEDS ORDERED: Lidocaine -MPF 2% 5 ML VIAL INFILT ONE (10:09)
[2016-11-14] MEDS ORDERED: *HR* Propofol 200 MG/20 ML VIAL IVP ONE (10:09)
[2016-11-14] MEDS: 0.9 % Sodium Chloride 500 ML IVC SCH (14:14)
--- NOTE | 2016-11-14 14:35 | Anesthesia Evaluation PreOp ---
Date of Encounter: 11/14/16 Time of Encounter: 14:30 - Past History Planned Operation: EGD Colonoscopy Cardiac History: HTN, Hyperlipidemia, Arrhythmia (AFib Chronic...controlled rate ), Other (Thalassemia) Pulmonary History: COPD (Home oxygen) DANCE ENTERTAINER History: Denies Any Significant HX, Other (s/p Shunt for hydrocephalus) Other Medical History: Denies Any Significant HX Anesthesia History: No Prior Anesthetic Complications Alcohol Use: none Drug use: none Medications and Allergies Albuterol Sulfate [Albuterol Inhaler] 2 puff IH QID PRN 11/10/16 [History] Apixaban [Eliquis] 5 mg PO BID 11/10/16 [History] Aspirin Enteric Coated [Aspirin EC] 81 mg PO DAILY 11/10/16 [History] Digoxin [Lanoxin] 0.125 mg PO DAILY 11/10/16 [History] Gabapentin [Neurontin] 600 mg PO TID 11/10/16 [History] Lidocaine 4% CRM (LMX) [Lmx 4] 1 appl TP TID 11/10/16 [History] Metoprolol [Lopressor] 50 mg PO BID 11/10/16 [History] Terazosin HCl 10 mg PO HS 11/10/16 [History] Allergies aspirin Adverse Reaction (Verified 11/10/16 19:50) Nausea codeine Adverse Reaction (Verified 11/10/16 19:50) Nausea Sulfa (Sulfonamide Antibiotics) Adverse Reaction (Verified 11/10/16 19:50) Hives - Meds/Allergy Pre-op Review Medications Reviewed: Yes Allergies Reviewed: Yes Beta Blockers on Current Med List: Yes (on metoprolol) Anesthesia Results - Labs 11/14/16 04:13 11/14/16 04:13 - Imaging EKG: report reviewed (Atrial Flutter controlled rate) Anesthesia Exam Vital Signs/O2 Sat/Glucose, Most Current Temp Pulse Resp BP Pulse Ox 11/14/16 14:09 98.9 F 83 17 134/78 93 L 11/14/16 11:43 98.9 F 83 17 134/78 93 L 11/14/16 11:05 18 90 L Height: 5'5 Weight: 196 lbs NPO (# of Hours): MN Pain Scale: 2 - HEENT Pupil (Motor): Pupils equal, EOMI Mallampati: III Teeth: Edentulous Oral Opening: Less than or equal to 3 - DANCE ENTERTAINER LOC: Oriented DANCE ENTERTAINER Motor: Normal RUE, Normal LUE, Normal RLE, Normal LLE, Normal Face DANCE ENTERTAINER Sensory: Normal: RUE, LUE, RLE, LLE, Face - Cardiac Rhythm: Irregular Murmur: None JVD: No Carotid Bruit: No - Pulmonary Breath Sounds: bilateral Clear Respiratory Effort: Symmetrical Anesthesia Assess/Plan ASA Score: 4 (HTN, AFib, COPD, on home oxygen) Modified Esteban Scale for Level of Consciousness: Cooperative, oriented, and tranquil Anesthetic Plan: MAC Monitoring Plan: Standard Monitors Recovery Plan: Other (Discussed MAC, agrees to proceed)
--- NOTE | 2016-11-14 16:18 | Internal Med Progress Note ---
Date of Encounter: 11/14/16 Time of Encounter: 16:15 - Assessment and plan (1) Pancreatitis, acute Current Visit: Yes Status: Acute Assessment and plan: Abdominal pain, lipase more than 3000 n admission, CT abdomen also suggestive of acute pancreatitis. Unclear etiology, no history of alcohol abuse or gallstones. mild elevation of the liver enzymes at the admission, scheduled for MRCP, however could not be done given h/o shunt in the brain,[place] be [place] as [place] was too long ago. labs looks better including the liver fxn and the lipase. CT abdomen does not show any abscess, uncomplicated pancreatitis at this time. consulted GI,RUQ showed GB sludge, s/p EGD with normal findings. No ERCP at this time, GI recommending removal of GB. will consult general surgery Qualifiers: Pancreatitis type: unspecified pancreatitis type Acute pancreatitis complication: unspecified Qualified Code(s): K85.90 - Acute pancreatitis without necrosis or infection, unspecified (2) Abnormal LFTs Current Visit: Yes Status: Acute Assessment and plan: as above. improved. (3) A-fib Current Visit: Yes Status: Chronic Assessment and plan: rate is stable, currently on AC. will conitnue home meds. Qualifiers: Atrial fibrillation type: paroxysmal Qualified Code(s): I48.0 - Paroxysmal atrial fibrillation (4) COPD (chronic obstructive pulmonary disease) Current Visit: Yes Status: Chronic Assessment and plan: stable, not in exacerbation. continue home nebs. Qualifiers: COPD type: unspecified COPD Qualified Code(s): J44.9 - Chronic obstructive pulmonary disease, unspecified (5) HTN (hypertension) Current Visit: Yes Status: Chronic Assessment and plan: stable. Qualifiers: Hypertension type: essential hypertension Qualified Code(s): I10 - Essential (primary) hypertension (6) Microcytic anemia Current Visit: Yes Status: Chronic Assessment and plan: has h/o long standing anemia possible 2/2 thalassemia. low iron and TSAT as noted in the iron panel. will check ferritin and will hold iron trasnfusion at this time. EGD did not show any active bleeding. - Time Spent With Patient 25 - 35 minutes - Subjective Interval history: seen at the bedside, admitted for acute pancreatitis. mild pain on the left upper abdomen. Denies any nausea or vomiting. No fever, passing gas. No history of gallbladder stones, not an alcoholic. plan for EGD today with dr. MEJIAS. - Constitutional Vitals: Temp Pulse Resp BP Pulse Ox 98.9 F 83 17 134/78 93 L 11/14/16 14:09 11/14/16 14:09 11/14/16 14:09 11/14/16 14:09 11/14/16 14:09 General appearance: Present: A&O X 3, pleasant, no acute distress Exam: Neck supple. Chest bilateral clear, no added sounds. CVS S1-S2, no murmurs rubs or gallops. Abdomen soft,mild tenderness on the left upper quadrant and the back, no rebound , and bowel sounds are present. Extremities no edema. Neuro no focal deficits, alert and awake and oriented 3. Skin appears dry, no rashes. Internal Medicine: Result - Labs CBC & Chem 7: 11/14/16 04:13 11/14/16 04:13 Labs: Short CBC 11/14/16 Range/Units 04:13 WBC 7.0 (4.3-11.1) K/mcL Hgb 8.9 L (12.9-16.9) g/dL Hct 29.3 L (37.5-50.1) % Plt Count 170 (140-400) K/mcL Neutrophils # 5.1 (1.6-8.9) K/mcL BMP 11/14/16 04:13 Sodium 140 Potassium 3.6 Chloride 111 H Carbon Dioxide 20 BUN 5 L Creatinine 0.61 L Glucose 73 Calcium 7.6 L Consult Discharge Plan - Plan [facility]errals: [facility] [Primary Care Provider[facility] - 11/23/16 9:15 am
--- NOTE | 2016-11-14 16:30 | Anesthesia Evaluation Post Op ---
Date of Encounter: 11/14/16 Time of Encounter: 16:29 - Vital Signs Vital Signs: 114/62, HR 80, 91% on 4LPM, RR 24 - Lungs Lungs: Wheezes - Airway Airway: Non-obstructed - Cardiovascular Irregular Rate, Baseline Rhythm - Mental Status Mental Status: Alert & Oriented, Answers Appropriately - Pain Pain Scale: 0 Pain Scale used: Numeric (1 - 10) - Nausea Vomiting Nausea Vomiting: Not Present - Hydration Hydration: Tolerates oral liquids, Has not voided - Discharge PostOp Status: Transfer Patient to floor
[2016-11-14 18:10] LABS: Bilirubin,Urine Small (Negative); Blood,Urine Negative (Negative); Clarity,Urine Clear (Clear); Color,Urine Yellow (Yellow); Glucose,Urine (UA) Normal (Normal); Ketones,Urine 80 mg/dL (Negative); Leukocyte Esterase,Urine Negative (Negative); Nitrite,Urine Negative (Negative); Protein,Urine Trace mg/dL (Neg-Trace); Specific Gravity,Urine 1.019 (1.010-1.025); Urobilinogen,Urine Normal (Normal)
[2016-11-14 18:12] LABS: Bacteria,Urine None Seen per hpf (None-Few); Hyaline Casts,Urine Few per lpf (None-Few); Squamous Epithelial Cell,Urine Many per lpf (None-Few)
[2016-11-14] MEDS: Acetaminophen 325 MG TABLET PO PRN (20:39)
[2016-11-15] MEDS: 0.9 % Sodium Chloride 500 ML IVC SCH ×3 (00:22→20:46)
[2016-11-15] MEDS: 0.9 % Sodium Chloride 1,000 ML IVC SCH ×2 (03:05→22:00)
[2016-11-15] MEDS: Pantoprazole 40 MG VIAL IVP SCH (05:45)
[2016-11-15 05:59] LABS: Hematocrit 27.6 % (37.5-50.1); Hemoglobin 8.7 g/dL (12.9-16.9); Immature Granulocytes % 0.6 % (0-4); Lymphocytes % 12.8 %; Mean Corpuscular HGB Conc 31.5 g/dL (31.6-35.5); Mean Corpuscular Hemoglobin 20.2 pg (28.0-33.3); Mean Corpuscular Volume 64.2 fL (83.0-100.0); Mean Platelet Volume 10.2 fL (9.4-12.4); Platelet Count 164 K/mcL (140-400); Red Cell Distribution Width 17.2 % (11.5-14.5); Segmented Neutrophils % 72.1 %
[2016-11-15 06:00] LABS: Basophils % 0.4 %; Eosinophils # 0.2 K/mcL (0.0-0.6); Eosinophils % 3.5 %; Lymphocytes # 0.7 K/mcL (0.6-4.6); Monocytes # 0.6 K/mcL (0.0-1.3); Monocytes % 10.6 %; Neutrophils # 3.9 K/mcL (1.6-8.9)
[2016-11-15 06:15] LABS: BUN/Creatinine Ratio 6 (6-26); Calcium 8.1 mg/dL (8.6-10.8); Carbon Dioxide 23 mEq/L (19-29); Chloride 113 mEq/L (98-109); Glucose 92 mg/dL (70-99); Osmolality,Calculated 291 (280-300); Potassium 3.8 mEq/L (3.5-4.5); Sodium 142 mEq/L (136-145); eGFR For African Americans > 60 (> 60); eGFR For Non-African Americans > 60 (> 60)
[2016-11-15 06:16] LABS: Blood Urea Nitrogen 4 mg/dL (8-26)
[2016-11-15 06:34] LABS: Microcytosis Present (Not Present); Platelet Estimate Normal (Normal); Polychromasia 1+ (Not Present)
[2016-11-15 06:35] LABS: Anisocytosis 1+ (Not Present); Ovalocytes 1+ (Not Present)
[2016-11-15 06:36] LABS: Ferritin 627 ng/ml (22-275)
[2016-11-15] MEDS: Aspirin Enteric Coated 81 MG Tablet PO SCH (09:31)
[2016-11-15] MEDS: Gabapentin 300 MG CAPSULE PO SCH ×3 (09:32→20:54)
[2016-11-15] MEDS: *HR* Digoxin 0.125 MG TABLET PO SCH (09:33)
[2016-11-15] MEDS: Simethicone 80 MG TAB.CHEW PO PRN ×2 (11:11→16:22)
[2016-11-15] MEDS: APIXABAN 5 MG TABLET PO SCH ×2 (11:36→20:52)
[2016-11-15] MEDS: Ipratropium/Albuterol Neb 3 ML IH SCH ×3 (11:37→20:53)
--- NOTE | 2016-11-15 16:05 | Internal Med Progress Note ---
Date of Encounter: 11/15/16 Time of Encounter: 16:02 - Assessment and plan (1) Pancreatitis, acute Current Visit: Yes Status: Acute Assessment and plan: Abdominal pain, lipase more than 3000 n admission, CT abdomen also suggestive of acute pancreatitis. Unclear etiology, no history of alcohol abuse or gallstones. mild elevation of the liver enzymes at the admission, scheduled for MRCP, however could not be done given h/o shunt in the brain,no records could be obtained form [place] as it was too long ago. labs looks better including the liver fxn and the lipase. CT abdomen does not show any abscess, uncomplicated pancreatitis at this time. consulted GI,RUQ showed GB sludge, s/p EGD with normal findings. No ERCP at this time, GI recommending removal of GB. have consulted general surgery. await recommendations Qualifiers: Pancreatitis type: unspecified pancreatitis type Acute pancreatitis complication: unspecified Qualified Code(s): K85.90 - Acute pancreatitis without necrosis or infection, unspecified (2) Abnormal LFTs Current Visit: Yes Status: Acute Assessment and plan: as above. improved. (3) A-fib Current Visit: Yes Status: Chronic Assessment and plan: rate is stable, will restart AC depending on if he is going for surgery will conitnue home meds. Qualifiers: Atrial fibrillation type: paroxysmal Qualified Code(s): I48.0 - Paroxysmal atrial fibrillation (4) COPD (chronic obstructive pulmonary disease) Current Visit: Yes Status: Chronic Assessment and plan: stable, not in exacerbation. continue home nebs. Qualifiers: COPD type: unspecified COPD Qualified Code(s): J44.9 - Chronic obstructive pulmonary disease, unspecified (5) HTN (hypertension) Current Visit: Yes Status: Chronic Assessment and plan: stable. Qualifiers: Hypertension type: essential hypertension Qualified Code(s): I10 - Essential (primary) hypertension (6) Microcytic anemia Current Visit: Yes Status: Chronic Assessment and plan: has h/o long standing anemia possible 2/2 thalassemia. low iron and TSAT as noted in the iron panel. ferritin level high, will stop iron transfusion, may have iron overload. EGD did not show any active bleeding, but colonosocpy has a small ulcer in the cecum, non bleeding, that has been biopsied, will follow path results. - Time Spent With Patient 25 - 35 minutes - Subjective Interval history: seen at the bedside, admitted for acute pancreatitis. mild pain on the left upper abdomen. Denies any nausea or vomiting. No fever, passing gas. No history of gallbladder stones, not an alcoholic. RUQ US showed GB sludge, gen surgery consulted for possible lap jack as suggested by GI. - Constitutional Vitals: Temp Pulse Resp BP Pulse Ox 98.2 F 72 18 137/78 92 L 11/15/16 15:41 11/15/16 15:41 11/15/16 15:41 11/15/16 15:41 11/15/16 15:41 General appearance: Present: A&O X 3, pleasant, no acute distress Exam: Neck supple. Chest bilateral clear, no added sounds. CVS S1-S2, no murmurs rubs or gallops. Abdomen soft,mild tenderness on the left upper quadrant and the back, no rebound , and bowel sounds are present. Extremities no edema. Neuro no focal deficits, alert and awake and oriented 3. Skin appears dry, no rashes. Internal Medicine: Result - Labs CBC & Chem 7: 11/15/16 05:32 11/15/16 05:32 Labs: Short CBC 11/15/16 Range/Units 05:32 WBC 5.4 (4.3-11.1) K/mcL Hgb 8.7 L (12.9-16.9) g/dL Hct 27.6 L (37.5-50.1) % Plt Count 164 (140-400) K/mcL Neutrophils # 3.9 (1.6-8.9) K/mcL BMP 11/15/16 05:32 Sodium 142 Potassium 3.8 Chloride 113 H Carbon Dioxide 23 BUN 4 L Creatinine 0.62 L Glucose 92 Calcium 8.1 L Urine 11/14/16 Range/Units 18:00 Urine Color Yellow (Yellow) Urine Clarity Clear (Clear) Urine pH 6.0 (5.0-8.0) pH Units Ur Specific [place] 1.019 (1.010-1.025) Urine Protein Trace (Neg-Trace) mg/dL Urine Glucose (UA) Normal (Normal) mg/dL Consult Discharge Plan - Plan [facility]errals: [facility] [Primary Care Provider] - 11/23/16 9:15 am
[2016-11-15] MEDS: Acetaminophen 325 MG TABLET PO PRN (20:56)
--- NOTE | 2016-11-15 21:34 | General Surgery Consult Note ---
Date of Encounter: 11/15/16 Time of Encounter: 18:30 History of Present Illness Consult date: 11/15/16 (pancreatitis) Requesting physician: Patricia Abdalla History of present illness: 81 yo referred to [facility] for further evaluation and possible treatment of pancreatitis. The patient was admitted after presenting to [facility], , with a 2 day history of abdominal pain. The pain was located left side of the abdomen with labs notable for elevated bilirubin of 1.8, AST 95, ALT 99, alkaline phosphatase 132, and amylase of 3030. Over the course of this hospitalization the patient was evaluated by Dr. Abbasi for possible gallstone pancreatitis as well as anemia. EGD and colonoscopy were completed 11/04/16. The EGD demonstrated a normal esophagus, stomach, duodenum. Colonoscopy demonstrated a cecal ulcer measuring 1.5 x 5 mm in size. It was described as nonbleeding with no stigmata of recent bleeding but certainly was suspect for the patient's iron deficiency anemia. Biopsies obtained during the colonoscopy are still pending at the time of this dictation. An MRCP was ordered but not completed due to the presence of a shunt. Surgical consultation was placed at the suggestion of Dr. Abbasi for possible cholecystectomy. Ultrasound of the gallbladder was completed 11/13/16, and personally reviewed with [facility]. Sonogram demonstrated increased hepatic echogenicity without discrete lesions. No intrahepatic biliary ductal dilatation was evident. The gallbladder contained "sludge" without evidence of stones, or wall thickening. No pericholecystic fluid was identified, however, perihepatic ascites was identified. No sonographic Cagle sign was identified. The common bile duct measured approximately 3 mm in diameter. The visualized portions of the pancreas were unremarkable. Past medical history: Is notable for paroxysmal atrial fibrillation, COPD, asthma, hypertension, hyperlipidemia, thalassemia; prostate and bladder cancer. Surgical history includes appendectomy, hip replacement and placement of a ventriculoperitoneal shunt. Social history: The patient is a former smoker; he also admits to heavy alcohol use in the past, family indicates last alcoholic drink was 40 years ago. Allergies include aspirin, codeine which results in nausea; sulfa with exposure resulting in hives Medications on admission include: albuterol sulfate 2 puffs 4 times a day as needed apixaban right milligrams by mouth twice a day Enteric-coated aspirin 81 mg by mouth daily (despite reported allergy) Digoxin 0.125 mg by mouth daily Gabapentin 600 mg by mouth 3 times a day Lidocaine 4% cream 1 application topically 3 times a day Metoprolol 50 mg by mouth twice a day Terazosin 10 mg by mouth daily at bedtime Physical examination this is an elderly male patient resting comfortably in his hospital bed. He is a rather poor historian, requiring frequent supplementation of his history by his daughter. The patient is currently afebrile, 97.9, pulse 98, respirations 18, blood pressure 180/94. SPO2 on 3 L per nasal cannula 93% The patient's sclerae appear somewhat jaundiced; bilateral arcus senilis is also evident Lungs: Clear, though the breath sounds are diminished at both bases; no wheezes or rales were detected Cardiac: Irregular rhythm; did not detect any murmurs Abdomen somewhat protuberant but soft, with epigastric and left upper quadrant tenderness. No obvious hepatosplenomegaly or intra-abdominal masses were detected. Active bowel sounds were noted. Most recent laboratories: White count 7.0, hemoglobin 8.9, hematocrit 29.3; platelet count 170,000. Sodium 140, potassium 3.6, chloride 111, BUN 5, creatinine 0.61. Estimated GFR greater than 60. as of 11/13/2016Bilirubin 1.6, AST 16, ALT 25, Av phosphatase 73. Total protein 4.9, albumin 2.5 lipase 146 Impression: A 81-year-old male recently admitted for acute pancreatitis. The etiology of his pancreatitis is not clearly delineated. The usual etiologies for acute pancreatitis in [place] include gallstones, alcohol, thiazide diuretics and other medications such as cholesterol lowering agents. He also examined the gallbladder is notable for sludge but no evidence of stones. No other suggestive findings such as gallbladder wall thickening, or ductal dilatation is evident. I suspect the patient has findings of chronic alcoholism with encephalopathy as well as chronic hepatic insufficiency. Cholecystectomy, in this case, may not provide any "protection" from recurrent pancreatitis. The patient's 2 daughters wish to proceed with surgery, despite these reservations. Risks of surgery include hemorrhage, infection, intra-abdominal abscess, bile leak, injury to adjacent structures and postcholecystectomy diarrhea. Surgery itself may result in recurrent pancreatitis and as discussed above, may not prevent recurrent pancreatitis. The patient has a transverse surgical scar cephalad to the umbilicus which may be related to the intraperitoneal shunt placement but neither the patient nor or his daughters have any recollection as to the soorce of this scar. Open cholecystectomy may become necessary, and a large subcostal incision and result in considerable pain and a prolonged recovery for this patient. Review of the patient's orders indicated that the patient has not been on any anticoagulation (eliquis) but the patient will have complete battery of labs drawn in AM followed by further discussion whether to proceed with cholecystectomy. Past Med Surg Social Fam HX - Past Medical History Medical history: atrial fibrillation, cancer (bladder), COPD, hyperlipidemia, hypertension, other (thalassemia, BPH, hydrocephalus s/p shunt) Psychiatric history: no psych history - Past Surgical History Surgical History: appendectomy, hip replacement, other (hydrocephalus shunt) - Social History Smoking Status: Former smoker Smokeless Tobacco Status: No Alcohol use: none Drug use: none - Family History Daughter Name: Courtney Dickens Age: 45 Hx Family Cardiac Disorders: No Hx Family Respiratory Disorders: Yes (Asthma) Hx Family Cancer: No Hx Family GI Disorders: No Hx Family Genitourinary Disorders: No Hx Family Endocrine Disorder: No Hx Family Musculoskeletal Disorders: No Hx Family Neuromuscular Disorders: No Hx Family Neurologic Disorders: No Hx Family HEENT Disorders: No Hx Family Autoimmune Disorders: No Hx Family Reproductive Disorders: No Hx Family Psychosocial Disorders: No Hx Family Medical Disorders: Yes (thalathemia) Medications and Allergies Albuterol Sulfate [Albuterol Inhaler] 2 puff IH QID PRN 11/10/16 [History] Apixaban [Eliquis] 5 mg PO BID 11/10/16 [History] Aspirin Enteric Coated [Aspirin EC] 81 mg PO DAILY 11/10/16 [History] Digoxin [Lanoxin] 0.125 mg PO DAILY 11/10/16 [History] Gabapentin [Neurontin] 600 mg PO TID 11/10/16 [History] Lidocaine 4% CRM (LMX) [Lmx 4] 1 appl TP TID 11/10/16 [History] Metoprolol [Lopressor] 50 mg PO BID 11/10/16 [History] Terazosin HCl 10 mg PO HS 11/10/16 [History] Allergies aspirin Adverse Reaction (Verified 11/10/16 19:50) Nausea codeine Adverse Reaction (Verified 11/10/16 19:50) Nausea Sulfa (Sulfonamide Antibiotics) Adverse Reaction (Verified 11/10/16 19:50) Hives Review of Systems All systems PM: A 10-system review of systems was performed and is negative for pertinent findings except as documented above in the HPI. General Surgery Exam Initial Vital Signs Temp Pulse Resp BP Pulse Ox 97.5 F L 67 18 121/77 95 11/10/16 19:41 11/10/16 19:41 11/10/16 19:41 11/10/16 19:41 11/10/16 19:41 Exam Initial Vital Signs Temp Pulse Resp BP Pulse Ox 97.5 F L 67 18 121/77 95 11/10/16 19:41 11/10/16 19:41 11/10/16 19:41 11/10/16 19:41 11/10/16 19:41 Results - Labs 11/15/16 05:32 11/15/16 05:32 Abnormal lab results Hgb 8.7 g/dL (12.9-16.9) L 11/15/16 05:32 Hct 27.6 % (37.5-50.1) L 11/15/16 05:32 MCV 64.2 fL (83.0-100.0) L 11/15/16 05:32 MCH 20.2 pg (28.0-33.3) L 11/15/16 05:32 MCHC 31.5 g/dL (31.6-35.5) L 11/15/16 05:32 RDW 17.2 % (11.5-14.5) H 11/15/16 05:32 Polychromasia 1+ (Not Present) A 11/15/16 05:32 Hypochromasia Present (Not Present) A 11/12/16 08:06 Poikilocytosis 2+ (Not Present) A 11/11/16 05:00 Anisocytosis 1+ (Not Present) A 11/15/16 05:32 Microcytosis Present (Not Present) A 11/15/16 05:32 Target Cells 1+ (Not Present) A 11/14/16 04:13 Tear Drop Cells 1+ (Not Present) A 11/11/16 05:00 Ovalocytes 1+ (Not Present) A 11/15/16 05:32 Chloride 113 mEq/L (98-109) H 11/15/16 05:32 BUN 4 mg/dL (8-26) L 11/15/16 05:32 Creatinine 0.62 mg/dL (0.72-1.25) L 11/15/16 05:32 Calcium 8.1 mg/dL (8.6-10.8) L 11/15/16 05:32 Iron 14 mcg/dL (65-175) L 11/13/16 10:14 % Saturation 6 % (20-55) L 11/13/16 10:14 Transferrin 157 mg/dL (174-364) L 11/13/16 10:14 Ferritin 627 ng/ml (22-275) H 11/15/16 05:32 Total Bilirubin 1.6 mg/dL (0.2-1.2) H 11/13/16 08:34 Direct Bilirubin 0.8 mg/dL (0.0-0.5) H 11/13/16 08:34 Serum Total Protein 4.9 g/dL (6.0-8.3) L 11/13/16 08:34 Albumin 2.5 g/dL (3.5-5.0) L 11/13/16 08:34 Albumin/Globulin Ratio 1.0 (1.1-2.2) L 11/13/16 08:34 HDL Cholesterol 26 mg/dL (40-59) L 11/11/16 05:00 Lipase 146 Units/L (8-78) H 11/13/16 08:34 Urine Ketones 80 mg/dL (Negative) H 11/14/16 18:00 Urine Bilirubin Small (Negative) H 11/14/16 18:00 Urine Microscopic RBC 3-5 per hpf (0-3) H 11/14/16 18:00 Urine Microscopic WBC 3-5 per hpf (0-3) H 11/14/16 18:00 Ur Squamous Epith Cells Many per lpf (None-Few) H 11/14/16 18:00 Diabetes panel 11/15/16 Range/Units 05:32 Sodium 142 (136-145) mEq/L Potassium 3.8 (3.5-4.5) mEq/L Chloride 113 H (98-109) mEq/L Carbon Dioxide 23 (19-29) mEq/L BUN 4 L (8-26) mg/dL Creatinine 0.62 L (0.72-1.25) mg/dL Glucose 92 (70-99) mg/dL Calcium 8.1 L (8.6-10.8) mg/dL Calcium panel 11/15/16 Range/Units 05:32 Calcium 8.1 L (8.6-10.8) mg/dL Pituitary panel 11/15/16 Range/Units 05:32 Sodium 142 (136-145) mEq/L Potassium 3.8 (3.5-4.5) mEq/L Chloride 113 H (98-109) mEq/L Carbon Dioxide 23 (19-29) mEq/L BUN 4 L (8-26) mg/dL Creatinine 0.62 L (0.72-1.25) mg/dL Glucose 92 (70-99) mg/dL Calcium 8.1 L (8.6-10.8) mg/dL Adrenal panel 11/15/16 Range/Units 05:32 Sodium 142 (136-145) mEq/L Potassium 3.8 (3.5-4.5) mEq/L Chloride 113 H (98-109) mEq/L Carbon Dioxide 23 (19-29) mEq/L BUN 4 L (8-26) mg/dL Creatinine 0.62 L (0.72-1.25) mg/dL Glucose 92 (70-99) mg/dL Calcium 8.1 L (8.6-10.8) mg/dL All other labs normal. Consult Discharge Plan - Plan Referrals: [facility],PCP [Primary Care Provider] - 11/23/16 9:15 am
[2016-11-16] MEDS: Ipratropium/Albuterol Neb 3 ML IH SCH ×7 (00:50→23:26)
[2016-11-16 05:43] LABS: INR 1.4; Prothrombin Time 14.9 Seconds (9.4-12.1)
[2016-11-16 05:54] LABS: Basophils % 0.7 %; Eosinophils # 0.3 K/mcL (0.0-0.6); Eosinophils % 6.8 %; Hematocrit 29.7 % (37.5-50.1); Hemoglobin 9.2 g/dL (12.9-16.9); Immature Granulocytes % 0.2 % (0-4); Lymphocytes # 1.1 K/mcL (0.6-4.6); Lymphocytes % 25.9 %; Mean Corpuscular Hemoglobin 19.7 pg (28.0-33.3); Mean Corpuscular Volume 63.6 fL (83.0-100.0); Mean Platelet Volume 9.9 fL (9.4-12.4); Monocytes # 0.5 K/mcL (0.0-1.3); Monocytes % 11.9 %; Neutrophils # 2.3 K/mcL (1.6-8.9); Platelet Count 190 K/mcL (140-400); Red Blood Count 4.67 M/mcL (4.19-5.50); Red Cell Distribution Width 17.2 % (11.5-14.5); Segmented Neutrophils % 54.5 %
[2016-11-16 06:18] LABS: Alanine Aminotransferase 15 Units/L (0-55); Albumin 2.7 g/dL (3.5-5.0); Alkaline Phosphatase 74 Units/L (38-126); Amylase 94 Units/L (25-125); Aspartate Amino Transferase 13 Units/L (5-34); BUN/Creatinine Ratio 4 (6-26); Bilirubin,Total 1.1 mg/dL (0.2-1.2); Calcium 8.1 mg/dL (8.6-10.8); Carbon Dioxide 28 mEq/L (19-29); Chloride 111 mEq/L (98-109); Globulin 2.6 g/dL (2.4-3.5); Glucose 91 mg/dL (70-99); Lipase 128 Units/L (8-78); Osmolality,Calculated 294 (280-300); Potassium 2.9 mEq/L (3.5-4.5); Sodium 144 mEq/L (136-145); Total Protein 5.3 g/dL (6.0-8.3); eGFR For African Americans > 60 (> 60); eGFR For Non-African Americans > 60 (> 60)
[2016-11-16 06:24] LABS: Blood Urea Nitrogen 3 mg/dL (8-26)
[2016-11-16 07:00] LABS: Microcytosis Present (Not Present)
[2016-11-16 07:01] LABS: Anisocytosis 1+ (Not Present); Ovalocytes 1+ (Not Present); Polychromasia 1+ (Not Present)
[2016-11-16 07:02] LABS: Platelet Estimate Normal (Normal); Target Cells 1+ (Not Present)
[2016-11-16] MEDS: *HR* Digoxin 0.125 MG TABLET PO SCH (07:08)
[2016-11-16] MEDS: Gabapentin 300 MG CAPSULE PO SCH ×3 (07:08→21:05)
[2016-11-16] MEDS: Aspirin Enteric Coated 81 MG Tablet PO SCH (07:08)
[2016-11-16] MEDS: APIXABAN 5 MG TABLET PO SCH (07:09)
[2016-11-16] MEDS: Potassium Chloride 40 MEQ, Lidocaine 1% 2 ML in D5% in Water 500 ML IVPB SCH ×2 (08:39→19:16)
--- NOTE | 2016-11-16 13:58 | General Surgery Progress Note ---
Date of Encounter: 11/16/16 Time of Encounter: 13:00 Subjective Patient reports: no new complaints Narrative: General Surgery: Patient's status essentially unchanged. Left upper abdominal pain present but diminished from my exam yesterday. Patient is afebrile, pulse 65, respirations 16, blood pressure 124/70. SPO2 on liters per minute nasal cannula 96%. Lungs: Clear to auscultation, diminished breath sounds at both bases but no wheezes or rales Abdomen remains protuberant, with diminished but persistent pain left upper quadrant. No obvious intra-abdominal masses. No rebound Laboratories: White count 4.3, hemoglobin 9.2, hematocrit 29.7; platelet count 190,000. Electrolytes notable for potassium of 2.9. Amylase 94, lipase 128; serum protein 5.3 with albumin 2.7 Impression: 81-year-old patient with pancreatitis. Not certain that this is related to hepatobiliary disease (i.e. gallstone pancreatitis) Discussed with the patient and both daughters. The consensus reached was to proceed with cholecystectomy in the a.m. In the next 24 hours, the patient's potassium needs to be corrected and eliquis stopped. The risks of surgery were reviewed a second time (the first time last evening during the initial patient contact) Objective Vital Signs - Last 8 Hours Temp Pulse Resp BP Pulse Ox 11/16/16 11:35 16 96 11/16/16 10:51 97.5 F L 65 16 124/70 96 11/16/16 08:09 16 94 L 11/16/16 07:00 97.5 F L 75 16 172/65 93 L Intake and Output 11/15/16 11/16/16 11/16/16 23:59 07:59 15:59 Intake Total 490 / 490 880 / 880 Output Total 125 / 125 650 / 650 375 / 375 Balance 365 / 365 -650 / -650 505 / 505 Intake: Oral 490 / 490 880 / 880 Output: Urine 125 / 125 650 / 650 375 / 375 Other: Meal Dinner Breakfast Percent of Meal Consumed 40% 75% - Labs 11/16/16 05:00 11/16/16 04:30 Diabetes panel 11/16/16 Range/Units 04:30 Sodium 144 (136-145) mEq/L Potassium 2.9 L (3.5-4.5) mEq/L Chloride 111 H (98-109) mEq/L Carbon Dioxide 28 (19-29) mEq/L BUN 3 L (8-26) mg/dL Creatinine 0.67 L (0.72-1.25) mg/dL Glucose 91 (70-99) mg/dL Calcium 8.1 L (8.6-10.8) mg/dL AST 13 (5-34) Units/L ALT 15 (0-55) Units/L Alkaline Phosphatase 74 (38-126) Units/L Albumin 2.7 L (3.5-5.0) g/dL Calcium panel 11/16/16 Range/Units 04:30 Calcium 8.1 L (8.6-10.8) mg/dL Albumin 2.7 L (3.5-5.0) g/dL Pituitary panel 11/16/16 Range/Units 04:30 Sodium 144 (136-145) mEq/L Potassium 2.9 L (3.5-4.5) mEq/L Chloride 111 H (98-109) mEq/L Carbon Dioxide 28 (19-29) mEq/L BUN 3 L (8-26) mg/dL Creatinine 0.67 L (0.72-1.25) mg/dL Glucose 91 (70-99) mg/dL Calcium 8.1 L (8.6-10.8) mg/dL Adrenal panel 11/16/16 Range/Units 04:30 Sodium 144 (136-145) mEq/L Potassium 2.9 L (3.5-4.5) mEq/L Chloride 111 H (98-109) mEq/L Carbon Dioxide 28 (19-29) mEq/L BUN 3 L (8-26) mg/dL Creatinine 0.67 L (0.72-1.25) mg/dL Glucose 91 (70-99) mg/dL Calcium 8.1 L (8.6-10.8) mg/dL Total Bilirubin 1.1 (0.2-1.2) mg/dL AST 13 (5-34) Units/L ALT 15 (0-55) Units/L Alkaline Phosphatase 74 (38-126) Units/L Albumin 2.7 L (3.5-5.0) g/dL Consult Discharge Plan - Plan [facility]errals: [facility] [Primary Care Provider[facility] - 11/23/16 9:15 am
[2016-11-16] MEDS ORDERED: Potassium Chloride 40 MEQ, Lidocaine 1% 2 ML in D5% in Water 500 ML IVPB ONE ×2 (14:00)
[2016-11-16] MEDS ORDERED: Potassium Chloride 40 MEQ, Lidocaine 1% 2 ML in D5% in Water 500 ML IVPB SCH (14:00)
[2016-11-16] MEDS: Acetaminophen 325 MG TABLET PO PRN ×2 (14:30→21:06)
--- NOTE | 2016-11-16 14:34 | Internal Med Progress Note ---
Date of Encounter: 11/16/16 Time of Encounter: 14:32 - Assessment and plan (1) Pancreatitis, acute Current Visit: Yes Status: Acute Assessment and plan: Abdominal pain, lipase more than 3000 n admission, CT abdomen also suggestive of acute pancreatitis. Unclear etiology, no history of alcohol abuse or gallstones. mild elevation of the liver enzymes at the admission, scheduled for MRCP, however could not be done given h/o shunt in the brain,no records could be obtained form [facility] as it was too long ago. labs looks better including the liver fxn and the lipase. CT abdomen does not show any abscess, uncomplicated pancreatitis at this time. consulted GI,RUQ showed GB sludge, s/p EGD with normal findings. No ERCP at this time, GI recommending removal of GB. have consulted general surgery. plan for lap cholecystectomy tomm with dr. sainz Qualifiers: Pancreatitis type: unspecified pancreatitis type Acute pancreatitis complication: unspecified Qualified Code(s): K85.90 - Acute pancreatitis without necrosis or infection, unspecified (2) Abnormal LFTs Current Visit: Yes Status: Acute Assessment and plan: as above. improved. (3) A-fib Current Visit: Yes Status: Chronic Assessment and plan: rate is stable, will restart AC depending on if he is going for surgery will conitnue home meds. Qualifiers: Atrial fibrillation type: paroxysmal Qualified Code(s): I48.0 - Paroxysmal atrial fibrillation (4) COPD (chronic obstructive pulmonary disease) Current Visit: Yes Status: Chronic Assessment and plan: stable, not in exacerbation. continue home nebs. Qualifiers: COPD type: unspecified COPD Qualified Code(s): J44.9 - Chronic obstructive pulmonary disease, unspecified (5) HTN (hypertension) Current Visit: Yes Status: Chronic Assessment and plan: stable. Qualifiers: Hypertension type: essential hypertension Qualified Code(s): I10 - Essential (primary) hypertension (6) Microcytic anemia Current Visit: Yes Status: Chronic Assessment and plan: has h/o long standing anemia possible 2/2 thalassemia. low iron and TSAT as noted in the iron panel. ferritin level high, will stop iron transfusion, may have iron overload. EGD did not show any active bleeding, but colonosocpy has a small ulcer in the cecum, non bleeding, that has been biopsied, will follow path results. - Time Spent With Patient 25 - 35 minutes - Subjective Interval history: seen at the bedside, admitted for acute pancreatitis. mild pain on the left upper abdomen. Denies any nausea or vomiting. No fever, feels bloated, has been tolerating soft diet. No history of gallbladder stones, not an alcoholic. RUQ US showed GB sludge, gen surgery consulted for possible lap jack as suggested by GI. - Constitutional Vitals: Temp Pulse Resp BP Pulse Ox 97.5 F L 65 16 124/70 96 11/16/16 10:51 11/16/16 10:51 11/16/16 11:35 11/16/16 10:51 11/16/16 11:35 General appearance: Present: A&O X 3, pleasant, no acute distress Exam: neck- supple chest- b/l clear cvs-s1 and s2, no mr//g abd- soft,mildly distended , non tender, bs are present ext- no edema Internal Medicine: Result - Labs CBC & Chem 7: 11/16/16 05:00 11/16/16 04:30 Labs: Short CBC 11/16/16 Range/Units 05:00 WBC 4.3 (4.3-11.1) K/mcL Hgb 9.2 L (12.9-16.9) g/dL Hct 29.7 L (37.5-50.1) % Plt Count 190 (140-400) K/mcL Neutrophils # 2.3 (1.6-8.9) K/mcL BMP 11/16/16 04:30 Sodium 144 Potassium 2.9 L Chloride 111 H Carbon Dioxide 28 BUN 3 L Creatinine 0.67 L Glucose 91 Calcium 8.1 L Liver Function 11/16/16 Range/Units 04:30 Total Bilirubin 1.1 (0.2-1.2) mg/dL AST 13 (5-34) Units/L ALT 15 (0-55) Units/L Alkaline Phosphatase 74 (38-126) Units/L Albumin 2.7 L (3.5-5.0) g/dL - ABG Interpretation ABG results: PT/INR, D-dimer PT 14.9 Seconds (9.4-12.1) H 11/16/16 04:46 Consult Discharge Plan - Plan [facility]errals: [facility] [Primary Care Provider[facility] - 11/23/16 9:15 am
[2016-11-16] MEDS: 0.9 % Sodium Chloride 500 ML IVC SCH ×2 (17:25→17:26)
--- NOTE | 2016-11-16 19:10 | Anesthesia Evaluation PreOp ---
Date of Encounter: 11/16/16 Time of Encounter: 19:08 - Past History Planned Operation: Lap jack/admit for acute pancreatitis Cardiac History: HTN, Hyperlipidemia, Arrhythmia (PAF, rate controlled), Other ( lives in basement, climbs 1 fos daily, no cp) Pulmonary History: Former smoker, COPD, Other (home oxygen) TRASH COLLECTOR History: Other (hydrocephalus with vp marketing shunt) Other Medical History: Other (thalessemia minor, bph, bladder ca) Anesthesia History: No Prior Anesthetic Complications, Past Anesthesia (appy, luis e, vp marketing shunt) Alcohol Use: none Drug use: none Medications and Allergies Albuterol Sulfate [Albuterol Inhaler] 2 puff IH QID PRN 11/10/16 [History] Apixaban [Eliquis] 5 mg PO BID 11/10/16 [History] Aspirin Enteric Coated [Aspirin EC] 81 mg PO DAILY 11/10/16 [History] Digoxin [Lanoxin] 0.125 mg PO DAILY 11/10/16 [History] Gabapentin [Neurontin] 600 mg PO TID 11/10/16 [History] Lidocaine 4% CRM (LMX) [Lmx 4] 1 appl TP TID 11/10/16 [History] Metoprolol [Lopressor] 50 mg PO BID 11/10/16 [History] Terazosin HCl 10 mg PO HS 11/10/16 [History] Allergies aspirin Adverse Reaction (Verified 11/10/16 19:50) Nausea codeine Adverse Reaction (Verified 11/10/16 19:50) Nausea Sulfa (Sulfonamide Antibiotics) Adverse Reaction (Verified 11/10/16 19:50) Hives - Meds/Allergy Pre-op Review Medications Reviewed: Yes Allergies Reviewed: Yes Beta Blockers on Current Med List: Yes If Beta Blockers taken, Date/Time (Last Dose taken): metoprolol Anesthesia Results - Labs 11/16/16 05:00 11/16/16 17:42 - Imaging EKG: report reviewed (aflutter (controlled). LAD) Anesthesia Exam O2 Sat O2 Sat by Pulse Oximetry 93 O2 Sat by Pulse Oximetry 95 O2 Sat by Pulse Oximetry 96 O2 Sat by Pulse Oximetry 96 O2 Sat by Pulse Oximetry 94 O2 Sat by Pulse Oximetry 93 O2 Sat by Pulse Oximetry 93 O2 Sat by Pulse Oximetry 93 O2 Sat by Pulse Oximetry 91 O2 Sat by Pulse Oximetry 93 Vital Signs Temp Pulse Resp BP Pulse Ox 97.5 F L 67 18 121/77 95 11/10/16 19:41 11/10/16 19:41 11/10/16 19:41 11/10/16 19:41 11/10/16 19:41 Vital Signs/O2 Sat/Glucose, Most Current Temp Pulse Resp BP Pulse Ox 11/16/16 16:45 98.0 F 88 16 159/80 93 L 11/16/16 15:50 18 95 Height: 1.65 Weight: 89 NPO (# of Hours): >8 - HEENT Pupil (Motor): Pupils equal, EOMI Mallampati: II Teeth: Edentulous Oral Opening: Less than or equal to 3 - TRASH COLLECTOR LOC: Oriented TRASH COLLECTOR Motor: Normal RUE, Normal LUE, Normal RLE, Normal LLE, Normal Face TRASH COLLECTOR Sensory: Normal: RUE, LUE, RLE, LLE, Face - Cardiac Rhythm: Irregular Murmur: None - Pulmonary Breath Sounds: bilateral Clear Respiratory Effort: Symmetrical Anesthesia Assess/Plan ASA Score: 4 Modified Esteban Scale for Level of Consciousness: Cooperative, oriented, and tranquil Anesthetic Plan: General Monitoring Plan: Standard Monitors Recovery Plan: PACU
[2016-11-17] MEDS: 0.9 % Sodium Chloride 500 ML IVC SCH (00:52)
[2016-11-17] MEDS: Acetaminophen 325 MG TABLET PO PRN (03:15)
[2016-11-17] MEDS: Ipratropium/Albuterol Neb 3 ML IH SCH ×5 (04:19→20:44)
[2016-11-17 05:45] LABS: INR 1.4
[2016-11-17] MEDS ORDERED: Potassium Chloride 40 MEQ, Lidocaine 1% 2 ML in D5% in Water 500 ML IVPB ONE (08:03)
[2016-11-17] MEDS: *HR* Digoxin 0.125 MG TABLET PO SCH (09:38)
--- NOTE | 2016-11-17 10:03 | Internal Med Progress Note ---
Date of Encounter: 11/17/16 Time of Encounter: 09:45 - Assessment and plan (1) Abdominal pain Current Visit: Yes Status: Acute Assessment and plan: secondary to acute pancreatitis Qualifiers: Abdominal location: generalized Qualified Code(s): R10.84 - Generalized abdominal pain (2) Pancreatitis, acute Current Visit: Yes Status: Acute Assessment and plan: unclear etiology. triglycerides at 61. no alcohol use. Patient presented with diffuse abdominal pain, lipase more than [address] abdomen/pelvis findings compatible with acute pancreatitis. 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 CT abdomen/pelvis shows sludge in gallbladder, mild pericholecystic stranding and fluid, stranding a small volume of fluid around the head of the pancreas. us abdomen shows liver steatosis, gallbladder sludge, mild perihepatic ascites. EGD was normal. Appreciate GI and surgical input. PLAN: lap jack today. NPO. change IV fluids to lactated ringers. pain required Iv morphine, now pain is better and he is taking oral tylenol. Qualifiers: Pancreatitis type: unspecified pancreatitis type Acute pancreatitis complication: unspecified Qualified Code(s): K85.90 - Acute pancreatitis without necrosis or infection, unspecified (3) Acute respiratory failure with hypoxemia Current Visit: Yes Status: Acute Assessment and plan: secondary atelectasis from poor inspiration due to abdominal distension and pain in the setting of emphysema/COPD. Pt had pneumina a few months ago and was sent home on oxygen but PCP stop oxygen 1 month ago. CTA chest showed moderate centrilobular emphysematous changes, mild atelectasis bilaterally, no consolidation. Patient is requiring 3L of oxygen via NC to maintain SaO2 93%. continue oxygen, nebs. outpatient PFTs. (4) A-fib Current Visit: Yes Status: Chronic Assessment and plan: rate is stable. holding Eliquis for surgery. continue digoxin and metoprolol. Qualifiers: Atrial fibrillation type: paroxysmal Qualified Code(s): I48.0 - Paroxysmal atrial fibrillation (5) COPD (chronic obstructive pulmonary disease) Current Visit: Yes Status: Chronic Assessment and plan: stable, not in exacerbation. continue home nebs. Qualifiers: COPD type: unspecified COPD Qualified Code(s): J44.9 - Chronic obstructive pulmonary disease, unspecified (6) HTN (hypertension) Current Visit: Yes Status: Chronic Assessment and plan: stable. 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 ferritin level high.. low iron and TSAT as noted in the iron panel. EGD did not show any active bleeding, but colonoscopy has a small ulcer in the cecum, non bleeding, that has been biopsied, will follow path results. pt is hemodynamically stable. no bleeding. - Subjective Interval history: patient reports right sided abdominal pain that has improved compared to admission. he has abdominal distension. no nausea. no vomiting. pt is NPO. - Constitutional Vitals: Temp Pulse Resp BP Pulse Ox 97.5 F L 69 18 162/69 93 L 11/17/16 07:11 11/17/16 07:11 11/17/16 07:11 11/17/16 07:11 11/17/16 07:22 General appearance: Present: cooperative, A&O X 3, pleasant, no acute distress, answers questions appropriately - Eye Eye exam: Present: PERRL, sclera anicteric - Neck Neck exam general surgery: Present: supple, trachea midline. Absent: lymphadenopathy - Respiratory Respiratory exam: Present: CTAB - Cardiovascular Cardiovascular exam: Present: RRR - GI/Abdominal GI/Abdominal exam: Present: distended, soft, tenderness (mild at right sided) Additional comments: bowel sounds are present - Extremities Exam Extremities exam: Present: pedal edema (left leg edema) - Back Exam Back exam: Absent: CVA tenderness (L), CVA tenderness (R) - Neurological Exam Neurological exam: Present: alert, oriented X3, no focal deficits. Absent: facial droop, speech deficit - Skin Skin exam: Absent: rash Internal Medicine: Result - Labs CBC & Chem 7: 11/16/16 05:00 11/17/16 05:24 Labs: BMP 11/16/16 11/17/16 17:42 05:24 Potassium 3.5 3.2 L - ABG Interpretation ABG results: PT/INR, D-dimer PT 15.0 Seconds (9.4-12.1) H 11/17/16 05:24 Consult Discharge Plan - Plan Referrals: Rakan Tobias MD [Non-Partnered Physician] - [place],PCP [Primary Care Provider] - 11/23/16 9:15 am
[2016-11-17] MEDS ORDERED: Ringers Solution, Lactated 1,000 ML IVC SCH (10:15)
[2016-11-17] MEDS ORDERED: *HR* Rocuronium Bromide 50 MG/5 ML VIAL ONE (10:36)
[2016-11-17] MEDS ORDERED: Ondansetron 4 MG/2 ML VIAL ONE (10:36)
[2016-11-17] MEDS ORDERED: *HR* Propofol 200 MG/20 ML VIAL IVP ONE (10:37)
[2016-11-17] MEDS ORDERED: *HR* FentaNYL (PF) 100 MCG/2 ML VIAL ONE (10:37)
[2016-11-17] MEDS ORDERED: Lidocaine -MPF 2% 2 ML VIAL ONE (10:37)
[2016-11-17] MEDS ORDERED: *HR* Midazolam HCl 2 MG/2 ML VIAL ONE (10:38)
[2016-11-17] MEDS ORDERED: Bupivacaine/EPI 1:200k 0.25%PF 30 ML VIAL ONE ×2 (10:44→15:04)
--- NOTE | 2016-11-17 11:38 | History & Physical Report ---
Date of Encounter: 11/17/16 Time of Encounter: 11:38 24 Hour HP Update - Instructions Instructions: If the History and Physical is less than 30 days old and was completed prior to A.M. admission and or procedure and has NOT been updated on calendar day of procedure please complete this update prior to performing procedure. - Update Patient reports changes in Medical Condition: No Changes in assessment/condition: No Changes in Medication: No Preop tests/diagnostics Reviewed: Yes Surgery Remains Indicated: Yes Consent for Planned Operative Procedure(s) Verified: Yes - Pre-Operative Checklist Preoperative Checklist Indicated: No
[2016-11-17] MEDS ORDERED: ceFAZolin 2,000 MG in D5% in Water 100 ML IVPB ONE (14:06)
[2016-11-17] MEDS ORDERED: *HR* Morphine 2 MG/ML SYRINGE IVP PRN (14:11)
[2016-11-17] MEDS ORDERED: Dexamethasone 4 MG/ML VIAL ONE (14:30)
[2016-11-17] MEDS: Aspirin Enteric Coated 81 MG Tablet PO SCH (14:51)
[2016-11-17] MEDS: Gabapentin 300 MG CAPSULE PO SCH ×2 (14:51→20:05)
[2016-11-17] MEDS ORDERED: Neostigmine Methylsulfate 3 MG/3 ML SYRINGE ONE (14:59)
[2016-11-17] MEDS ORDERED: *HR* OxyCODONE/APAP 5/325 TABLET PO PRN (15:28)
[2016-11-17] MEDS ORDERED: Ringers Solution, Lactated 500 ML IVC ONE (15:35)
--- NOTE | 2016-11-17 15:35 | Operative Note ---
Date of procedure: 11/17/16 Pre-op diagnosis: pancreatitis Post-op diagnosis: same Procedure: laparoscopy, open cholecystectomy Complications: none apparent Anesthesia: GETA Local Anesthetics: 0.25% Sensorcaine HCL with Epinephrine 1:200,000 SubQ (cc) ( 50mL) Surgeon: Rakan Tobias Stretching Press Operator: Farzaneh Carranza Estimated blood loss (cc): 400 IV fluids (cc): 1,000 Specimen: gallbladder Condition: stable Disposition: PACU Procedure in Detail: the patient was brought to the operating room where he was placed on the operating room table. The patient was appropiately identified as to person and procedure. The accuracy of this information was confirmed by the procedure team. The patient was intubated and anesthetized by [facility]. The abdomen was prepped and draped in the usual sterile fashion. There were no palpable intra-abdominal masses detected when the patient was examined after induction of anesthesia. Several milliliters of 0.25% bupivacaine with 1-200, 000 units of epinephrine was infiltrated into the anterior abdominal wall in the subcostal, midclavicular area. A small transverse incision was made, the abdominal wall was grasped and elevated. A 5 mm Xcel port was established. The rigid laparoscope was placed within the obturator to visualize passage thru the anterior abdominal wall. When the abdominal cavity was accessed, the obturator was replaced by the rigid laparoscope. The abdomen was insufflated with gaseous carbon dioxide. There were no significant adhesions in the region of the umbilicus. Under direct visualization, an infra umbilical port was established. The rigid laparoscope was shifted to this port to visualize placement of the remaining ports along the right costal margin. The GB was not immediately identified. It appeared to be densely adherent to the transverse colon. The liver demonstrated some scarring and lobulations. The ventriculoperitoneal shunt was identified cephalad and lateral to the liver. I attempted to mobilize the GB from the transverse colon but ultimately abandoned my efforts to complete this dissection laparoscopically. The pneumoperitoneum was evacuated and the laparoscopic instrumentation removed. The 3 subcostal ports were connected by a subcostal incision after infiltrating the skin with the bupivacaine with epinephrine solution. The incision was carried to the right rectus abdominis. Bleeding pointswere controlled with electrocautery. The anterior rectus sheath was incised, the right rectus abdominis was divided using the Bovie electrocautery. The posterior rectus sheath was grasped and elevated and then incised. An atraumatic entry into the upper abdomen was completed. Exposure was facilitated with the self retaining OmniTract retractor. The GB was mobilized from the transverse colon. A portion of the adherent omentum was clamped, divided and suture ligated with 3-0 silk. The gallbladder was dissected from the liver in a retrograde fashion. Bleeding was controlled with the Bovie electocaurtery. The cyst duct was isolated and clipped near the infundibulum of the gallbladder. The cystic duct was incised but too small in caliber to alllow placement of a Taut Cholangiogram catheter. The cystic duct was doubly clipped distally and divided. The cystic artery was identified, skeletonized, clipped twice proximally and divided. The galllbadder was removed and sent to [facility]. The liver bed was inspected for adequate hemostasis. Hemostasis was facilitated by applying Shena hemostatic agent to the liver. Once hemostasis was satisfactory, closure was completed. The posterior rectus sheath was approximated with the peritoneal layer with running interlocking 0-Vicryl. Several mL 0.25% bupivacaine with epinephrine was infiltrated into this fascial layer. The anterior rectus sheath was approximated with interrupted figure-of- eight's 0 Vicryl and infiltrated with several milliliters bupivacaine with epinephrine. The subcutaneous layer was approximated with running 3-0 Vicryl. The skin edges approximated with rekha. A dry sterile dressing was applied. Needle, sponge, and instrument counts were correct at the close of the case. Total volume 0.25% bupivacaine with epinephrine . used during this procedure, 50 mL. The patient was taken to PACU in stable condition.
[2016-11-17] MEDS ORDERED: Albuterol 2.5 MG/3 ML NEBULIZER ONE (15:40)
[2016-11-17] MEDS ORDERED: Ondansetron 4 MG/2 ML VIAL IVP PRN (15:45)
[2016-11-17] MEDS ORDERED: Albuterol 2.5 MG/3 ML NEBULIZER IH PRN (15:45)
[2016-11-17] MEDS ORDERED: *HR* HYDROmorphone (PF) 1 MG/ML SYRINGE ONE (15:54)
[2016-11-17] MEDS: *HR* HYDROmorphone (PF) 1 MG/ML SYRINGE IVP PRN ×2 (15:55→16:09)
--- NOTE | 2016-11-17 16:22 | Anesthesia Evaluation Post Op ---
Date of Encounter: 11/17/16 Time of Encounter: 16:21 - Vital Signs Vital Signs: Vital Signs/O2 Sat, Most Current Temp Pulse Resp BP Pulse Ox 97 F L 64 14 124/74 92 L 11/17/16 16:03 11/17/16 16:13 11/17/16 16:13 11/17/16 16:13 11/17/16 16:13 - Lungs Lungs: Clear Ascult./Percussion - Airway Airway: Non-obstructed - Cardiovascular Irregular Rate, Baseline Rhythm - Mental Status Mental Status: Alert & Oriented, Answers Appropriately - Pain Pain Scale: 5 Pain Scale used: Numeric (1 - 10) - Nausea Vomiting Nausea Vomiting: Not Present - Hydration Hydration: Ice chips, Has not voided - Discharge PostOp Status: Transfer Patient to floor
[2016-11-17] MEDS ORDERED: Naloxone 0.4 MG/ML INJ IVP PRN (17:01)
[2016-11-17] MEDS: *HR* OxyCODONE/APAP 5/325 TABLET PO PRN (17:37)
--- NOTE | 2016-11-17 19:15 | General Surgery Progress Note ---
Date of Encounter: 11/17/16 Time of Encounter: 19:12 Subjective Narrative: Post op - the patient is complaining of pain not relieved by the current medication regimen. Afebrile, vital signs stable Lungs: Clear to auscultation with good inspiratory effort Abdomen: Surgical dressings intact; considerable tenderness right upper quadrant and along the costal margin. This may be due to retraction during the open cholecystectomy. The patient did not eat this evening but did consume coffee and some water. Patient denies any nausea. The patient has not voided since surgery - will insert Rice to monitor I's and O's Pain medications to be adjusted to provide additional pain control. The patient will be monitored for oversedation. Objective Vital Signs - Last 8 Hours Temp Pulse Resp BP Pulse Ox 11/17/16 16:23 97 F L 66 14 135/76 92 L 11/17/16 16:13 64 14 124/74 92 L 11/17/16 16:03 97 F L 67 14 127/64 92 L 11/17/16 15:53 72 14 132/72 92 L 11/17/16 15:43 70 14 129/77 93 L 11/17/16 15:33 97 F L 77 14 124/67 91 L 11/17/16 11:27 18 95 Intake and Output 11/17/16 11/17/16 11/17/16 07:59 15:59 23:59 Intake Total 0 / 0 0 / 0 0 / 0 Output Total 1025 / 1025 400 / 400 Balance -1025 / -1025 -400 / -400 0 / 0 Intake: Oral 0 / 0 0 / 0 0 / 0 Output: Urine 1025 / 1025 0 / 0 Estimated Blood Loss 400 / 400 Other: Meal NPO Dinner Percent of Meal Consumed 0% Weight 86.211 kg Blood Glucose* 92 123 Patient Weight 11/17/16 23:59 Weight 86.211 kg - Labs 11/16/16 05:00 11/17/16 05:24 Diabetes panel 11/17/16 Range/Units 05:24 Potassium 3.2 L (3.5-4.5) mEq/L Pituitary panel 11/17/16 Range/Units 05:24 Potassium 3.2 L (3.5-4.5) mEq/L Adrenal panel 11/17/16 Range/Units 05:24 Potassium 3.2 L (3.5-4.5) mEq/L - VTE Documentation of Mechanical Device: Intermittent pneumatic compression device Consult Discharge Plan - Plan Referrals: Rakan Tobias MD [Non-Partnered Physician] - [place],PCP [Primary Care Provider] - 11/23/16 9:15 am
[2016-11-17] MEDS: Ringers Solution, Lactated 1,000 ML IVC SCH (20:05)
[2016-11-17] MEDS: *HR* Morphine 2 MG/ML SYRINGE IVP PRN (22:22)
[2016-11-18] MEDS: Ipratropium/Albuterol Neb 3 ML IH SCH ×6 (00:23→20:58)
[2016-11-18] MEDS: Ondansetron 4 MG/2 ML VIAL IVP PRN ×3 (00:46→21:46)
[2016-11-18 05:50] LABS: Basophils % 0.1 %; Hematocrit 28.3 % (37.5-50.1); Hemoglobin 8.7 g/dL (12.9-16.9); INR 1.4; Immature Granulocytes % 0.6 % (0-4); Lymphocytes # 0.7 K/mcL (0.6-4.6); Mean Corpuscular HGB Conc 30.7 g/dL (31.6-35.5); Mean Corpuscular Hemoglobin 19.7 pg (28.0-33.3); Mean Corpuscular Volume 64.2 fL (83.0-100.0); Mean Platelet Volume 9.9 fL (9.4-12.4); Monocytes # 0.6 K/mcL (0.0-1.3); Monocytes % 8.2 %; Neutrophils # 5.6 K/mcL (1.6-8.9); Platelet Count 222 K/mcL (140-400); Prothrombin Time 14.8 Seconds (9.4-12.1); Red Blood Count 4.41 M/mcL (4.19-5.50); Red Cell Distribution Width 17.2 % (11.5-14.5); Segmented Neutrophils % 81.1 %
[2016-11-18 06:02] LABS: Alanine Aminotransferase 28 Units/L (0-55); Albumin 2.7 g/dL (3.5-5.0); Albumin/Globulin Ratio 1.1 (1.1-2.2); Alkaline Phosphatase 68 Units/L (38-126); Amylase 62 Units/L (25-125); Aspartate Amino Transferase 32 Units/L (5-34); BUN/Creatinine Ratio 8 (6-26); Bilirubin,Total 0.9 mg/dL (0.2-1.2); Carbon Dioxide 26 mEq/L (19-29); Chloride 107 mEq/L (98-109); Globulin 2.5 g/dL (2.4-3.5); Glucose 114 mg/dL (70-99); Lipase 50 Units/L (8-78); Osmolality,Calculated 288 (280-300); Potassium 3.9 mEq/L (3.5-4.5); Sodium 140 mEq/L (136-145); Total Protein 5.2 g/dL (6.0-8.3); eGFR For African Americans > 60 (> 60); eGFR For Non-African Americans > 60 (> 60)
[2016-11-18 06:05] LABS: Blood Urea Nitrogen 5 mg/dL (8-26)
[2016-11-18] MEDS: *HR* OxyCODONE/APAP 5/325 TABLET PO PRN ×2 (06:18→12:37)
[2016-11-18] MEDS: Ringers Solution, Lactated 1,000 ML IVC SCH (06:18)
[2016-11-18 06:24] LABS: Anisocytosis 1+ (Not Present); Microcytosis Present (Not Present); Ovalocytes 1+ (Not Present); Platelet Estimate Normal (Normal); Target Cells 1+ (Not Present)
[2016-11-18] MEDS ORDERED: Aspirin Enteric Coated 81 MG Tablet PO SCH (09:00)
[2016-11-18] MEDS: Acetaminophen 325 MG TABLET PO PRN ×2 (09:14→16:35)
[2016-11-18] MEDS: *HR* Digoxin 0.125 MG TABLET PO SCH (09:15)
[2016-11-18] MEDS: Gabapentin 300 MG CAPSULE PO SCH ×3 (09:15→20:51)
[2016-11-18] MEDS ORDERED: Ringers Solution, Lactated 1,000 ML IVC SCH (13:30)
--- NOTE | 2016-11-18 13:40 | General Surgery Progress Note ---
Date of Encounter: 11/18/16 Time of Encounter: 13:25 Subjective Patient reports: nausea Narrative: Postoperative day 1: Patient still complaining of pain despite increased administration narcotic analgesics thru the night. The increased pain meds have resulted in nausea; no emesis. Daughters indicate patient was very restless thru the night. Afebrile, 98.5; pulse 73, respirations 16, blood pressure 117/68 Lungs: Clear, no obvious abdominal pain with deep inspiration abdomen: distended with hypo active bowel sounds consistent with ileus. Incision clean and dry. Dressing removed. Minimal tenderness. Labs: WBC 6.9; Hgb 8.7, Hct 28.3; platelets 222,000 Electrolytes within normal limits, hypokalemia corrected, 3.9 LFTs within normal limits, amylase lipase is 62 and 50 respectively Impression: POD #1 - s/p laparoscopy, open cholecystectomy Incisional pain as expected. post op ileus due to inactivity and pain meds. pancreatitis - resolved Objective Vital Signs - Last 8 Hours Temp Pulse Resp BP Pulse Ox 11/18/16 10:51 98.5 F 73 16 117/68 94 L 11/18/16 07:39 16 93 L 11/18/16 06:54 98.8 F 98 16 146/76 93 L Intake and Output 11/17/16 11/18/16 11/18/16 23:59 07:59 15:59 Intake Total 0 / 0 1000 / 1000 120 / 120 Output Total 0 / 0 625 / 625 625 / 625 Balance 0 / 0 375 / 375 -505 / -505 Intake: IV Fluids 1000 / 1000 Lactated Ringers 1,000 ML 1000 / 1000 @ 100 mls/hr IVC .Q10H [facility] Rx#:[id number] Oral 0 / 0 0 / 0 120 / 120 Output: Urine 0 / 0 625 / 625 625 / 625 Other: Meal Dinner Breakfast Percent of Meal Consumed 0% Weight 87.1 kg Blood Glucose* 123 Patient Weight 11/18/16 23:59 Weight 87.1 kg - Labs 11/18/16 05:05 11/18/16 05:05 Diabetes panel 11/18/16 Range/Units 05:05 Sodium 140 (136-145) mEq/L Potassium 3.9 (3.5-4.5) mEq/L Chloride 107 (98-109) mEq/L Carbon Dioxide 26 (19-29) mEq/L BUN 5 L (8-26) mg/dL Creatinine 0.66 L (0.72-1.25) mg/dL Glucose 114 H (70-99) mg/dL Calcium 8.0 L (8.6-10.8) mg/dL AST 32 (5-34) Units/L ALT 28 (0-55) Units/L Alkaline Phosphatase 68 (38-126) Units/L Albumin 2.7 L (3.5-5.0) g/dL Calcium panel 11/18/16 Range/Units 05:05 Calcium 8.0 L (8.6-10.8) mg/dL Albumin 2.7 L (3.5-5.0) g/dL Pituitary panel 11/18/16 Range/Units 05:05 Sodium 140 (136-145) mEq/L Potassium 3.9 (3.5-4.5) mEq/L Chloride 107 (98-109) mEq/L Carbon Dioxide 26 (19-29) mEq/L BUN 5 L (8-26) mg/dL Creatinine 0.66 L (0.72-1.25) mg/dL Glucose 114 H (70-99) mg/dL Calcium 8.0 L (8.6-10.8) mg/dL Adrenal panel 11/18/16 Range/Units 05:05 Sodium 140 (136-145) mEq/L Potassium 3.9 (3.5-4.5) mEq/L Chloride 107 (98-109) mEq/L Carbon Dioxide 26 (19-29) mEq/L BUN 5 L (8-26) mg/dL Creatinine 0.66 L (0.72-1.25) mg/dL Glucose 114 H (70-99) mg/dL Calcium 8.0 L (8.6-10.8) mg/dL Total Bilirubin 0.9 (0.2-1.2) mg/dL AST 32 (5-34) Units/L ALT 28 (0-55) Units/L Alkaline Phosphatase 68 (38-126) Units/L Albumin 2.7 L (3.5-5.0) g/dL - VTE Documentation of Mechanical Device: Intermittent pneumatic compression device Consult Discharge Plan - Plan Referrals: Rakan Tobias MD [Non-Partnered Physician] - [facility],PCP [Primary Care Provider] - 11/23/16 9:15 am
--- NOTE | 2016-11-18 16:30 | Internal Med Progress Note ---
Date of Encounter: 11/18/16 Time of Encounter: 15:00 - Assessment and plan (1) Nausea and vomiting Current Visit: Yes Status: Acute Assessment and plan: post-operative vomiting. Check EKG, CXR, KUB, troponin. could be secondary to ileus but given left-sided chest pain earlier I will check EKG and troponin. Qualifiers: Vomiting type: unspecified Vomiting Intractability: non-intractable Qualified Code(s): R11.2 - Nausea with vomiting, unspecified (2) Abdominal pain Current Visit: Yes Status: Acute Assessment and plan: secondary to acute pancreatitis. improved. Qualifiers: Abdominal location: generalized Qualified Code(s): R10.84 - Generalized abdominal pain (3) Pancreatitis, acute Current Visit: Yes Status: Acute Assessment and plan: resolved. unclear etiology. triglycerides at 61. no alcohol use. Patient presented with diffuse abdominal pain, lipase more than [address] abdomen/pelvis findings compatible with acute pancreatitis. 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 CT abdomen/pelvis shows sludge in gallbladder, mild pericholecystic stranding and fluid, stranding a small volume of fluid around the head of the pancreas. us abdomen shows liver steatosis, gallbladder sludge, mild perihepatic ascites. EGD was normal. Appreciate GI and surgical input. NPO. pain control. holding IV fluids due to fluid overload. Qualifiers: Pancreatitis type: unspecified pancreatitis type Acute pancreatitis complication: unspecified Qualified Code(s): K85.90 - Acute pancreatitis without necrosis or infection, unspecified (4) Acute respiratory failure with hypoxemia Current Visit: Yes Status: Acute Assessment and plan: secondary atelectasis from poor inspiration due to abdominal distension and pain in the setting of emphysema/COPD. Pt had pneumina a few months ago and was sent home on oxygen but PCP stop oxygen 1 month ago. CTA chest showed moderate centrilobular emphysematous changes, mild atelectasis bilaterally, no consolidation. Patient is requiring 3L of oxygen via NC to maintain SaO2 93%. r/o pulmonary edema due to IV fluid hydration. check CXR, EKG. continue oxygen, nebs. outpatient PFTs. (5) A-fib Current Visit: Yes Status: Chronic Assessment and plan: rate is stable. holding Eliquis for surgery. continue digoxin and metoprolol. Qualifiers: Atrial fibrillation type: paroxysmal Qualified Code(s): I48.0 - Paroxysmal atrial fibrillation (6) COPD (chronic obstructive pulmonary disease) Current Visit: Yes Status: Chronic Assessment and plan: start symbicort and mucinex. continue nebs. Qualifiers: COPD type: unspecified COPD Qualified Code(s): J44.9 - Chronic obstructive pulmonary disease, unspecified (7) HTN (hypertension) Current Visit: Yes Status: Chronic Assessment and plan: stable. Qualifiers: Hypertension type: essential hypertension Qualified Code(s): I10 - Essential (primary) hypertension (8) Microcytic anemia Current Visit: Yes Status: Chronic Assessment and plan: has h/o long standing anemia possible 2/2 thalassemia. Ferritin level high. low iron and TSAT as noted in the iron panel. EGD did not show any active bleeding, but colonoscopy has a small ulcer in the cecum, non bleeding, that has been biopsied. Pathology reports diffusely ulcerated colonic mucosa with acute inflammation and granulation tissue with reactive changes. Negative for adenocarcinoma. Patient is hemodynamically stable. no bleeding. (9) Fluid overload Current Visit: Yes Status: Acute Assessment and plan: secondary to IV fluid hydration. hold IV fluids. check cXR, may need furosemide. Qualifiers: Hypervolemia type: unspecified Qualified Code(s): E87.70 - Fluid overload, unspecified - Subjective Interval history: patient vomited at 2pm. He feels fatigue and had left chest and shoulder pain earlier. No pain during my examination. - Constitutional Vitals: Temp Pulse Resp BP Pulse Ox 98.5 F 71 16 134/72 91 L 11/18/16 16:21 11/18/16 16:21 11/18/16 16:21 11/18/16 16:21 11/18/16 16:21 General appearance: Present: cooperative, A&O X 3, pleasant, no acute distress, answers questions appropriately - Eye Eye exam: Present: PERRL, sclera anicteric - Neck Neck exam general surgery: Present: supple, trachea midline. Absent: lymphadenopathy - Respiratory Respiratory exam: Present: wheezes - Cardiovascular Cardiovascular exam: Present: RRR - GI/Abdominal GI/Abdominal exam: Present: distended, hypoactive bowel sounds, soft. Absent: tenderness Additional comments: surgical incision is intact, no signs of infection. - Extremities Exam Extremities exam: Present: pedal edema (1+ LE edema) - Back Exam Back exam: Absent: CVA tenderness (L), CVA tenderness (R) - Neurological Exam Neurological exam: Present: alert, oriented X3, no focal deficits, strengths equal and symetr throughout. Absent: facial droop, speech deficit - Skin Skin exam: Absent: rash Internal Medicine: Result - Labs CBC & Chem 7: 11/18/16 05:05 11/18/16 05:05 Labs: Short CBC 11/18/16 Range/Units 05:05 WBC 6.9 D (4.3-11.1) K/mcL Hgb 8.7 L (12.9-16.9) g/dL Hct 28.3 L (37.5-50.1) % Plt Count 222 (140-400) K/mcL Neutrophils # 5.6 (1.6-8.9) K/mcL BMP 11/18/16 05:05 Sodium 140 Potassium 3.9 Chloride 107 Carbon Dioxide 26 BUN 5 L Creatinine 0.66 L Glucose 114 H Calcium 8.0 L Liver Function 11/18/16 Range/Units 05:05 Total Bilirubin 0.9 (0.2-1.2) mg/dL AST 32 (5-34) Units/L ALT 28 (0-55) Units/L Alkaline Phosphatase 68 (38-126) Units/L Albumin 2.7 L (3.5-5.0) g/dL - ABG Interpretation ABG results: PT/INR, D-dimer PT 14.8 Seconds (9.4-12.1) H 11/18/16 05:05 - VTE Documentation of Mechanical Device: Intermittent pneumatic compression device Consult Discharge Plan - Plan Referrals: Rakan Tobias MD [Non-Partnered Physician] - [place],PCP [Primary Care Provider] - 11/23/16 9:15 am
[2016-11-18] MEDS ORDERED: Furosemide 40 MG/4 ML VIAL ONE (18:42)
[2016-11-18] MEDS: Furosemide 40 MG/4 ML VIAL IVP SCH (18:50)
[2016-11-18] MEDS: Budesonide/Formoterol 160/4.5 MDI IH SCH ×2 (20:52→20:58)
[2016-11-18] MEDS: *HR* Morphine 2 MG/ML SYRINGE IVP PRN (21:53)
[2016-11-19] MEDS: Ipratropium/Albuterol Neb 3 ML IH SCH ×6 (00:17→20:58)
[2016-11-19] MEDS: *HR* Morphine 2 MG/ML SYRINGE IVP PRN (04:49)
[2016-11-19 06:10] LABS: Basophils % 0.4 %; Eosinophils # 0.2 K/mcL (0.0-0.6); Eosinophils % 2.6 %; Hemoglobin 8.7 g/dL (12.9-16.9); Immature Granulocytes % 0.8 % (0-4); Lymphocytes % 11.9 %; Mean Corpuscular HGB Conc 31.1 g/dL (31.6-35.5); Mean Corpuscular Volume 64.2 fL (83.0-100.0); Mean Platelet Volume 10.2 fL (9.4-12.4); Monocytes # 0.9 K/mcL (0.0-1.3); Monocytes % 10.2 %; Platelet Count 218 K/mcL (140-400); Red Blood Count 4.36 M/mcL (4.19-5.50); Red Cell Distribution Width 17.2 % (11.5-14.5); Segmented Neutrophils % 74.1 %
[2016-11-19 06:22] LABS: Neutrophils # 6.2 K/mcL (1.6-8.9)
[2016-11-19 06:23] LABS: BUN/Creatinine Ratio 9 (6-26); Blood Urea Nitrogen 6 mg/dL (8-26); Carbon Dioxide 31 mEq/L (19-29); Chloride 103 mEq/L (98-109); Glucose 96 mg/dL (70-99); Magnesium 1.6 mg/dL (1.6-2.6); Osmolality,Calculated 287 (280-300); Phosphorous 3.1 mg/dL (2.3-4.7); Potassium 3.6 mEq/L (3.5-4.5); Sodium 140 mEq/L (136-145); eGFR For African Americans > 60 (> 60); eGFR For Non-African Americans > 60 (> 60)
[2016-11-19 06:34] LABS: Platelet Estimate Normal (Normal)
[2016-11-19 06:35] LABS: Microcytosis Present (Not Present); Target Cells 1+ (Not Present); Tear Drop Cells 1+ (Not Present)
[2016-11-19] MEDS: Budesonide/Formoterol 160/4.5 MDI IH SCH ×2 (07:49→20:58)
[2016-11-19] MEDS: Furosemide 40 MG/4 ML VIAL IVP SCH (09:03)
[2016-11-19] MEDS: Gabapentin 300 MG CAPSULE PO SCH ×3 (09:05→23:52)
[2016-11-19] MEDS: *HR* Digoxin 0.125 MG TABLET PO SCH (09:05)
[2016-11-19] MEDS: Ondansetron 4 MG/2 ML VIAL IVP PRN ×3 (09:17→23:59)
[2016-11-19] MEDS ORDERED: *HR* HYDROcodone/Acet 5/325 mg TABLET PO PRN (10:46)
--- NOTE | 2016-11-19 10:56 | General Surgery Progress Note ---
Date of Encounter: 11/19/16 Time of Encounter: 10:49 Subjective Patient reports: still having pain Narrative: Postoperative day 2: Patient still complaining of pain however administration of morphine appears to be making him nauseated. With the nausea, the patient is not eating. Afebrile, pulse 76, respirations 18, blood pressure 121/64. SPO2 on 4 L/m nasal cannula 90-93%, however, symmetry frequently indicates saturations falling into the low 80s (prior history of tobacco abuse - patient possibly at baseline) Lungs: Clear to auscultation, no obvious pain on deep inspiration, despite the patient's complaints Abdomen: Soft, nontender (again despite the patient's complaints); no obvious intra-abdominal masses or rebound. Bowel sounds active. Incisions clean and dry Laboratories: WBC 8.4, hemoglobin 8.7, hematocrit 28.0 - stable anemia; platelet count 218,000 Electrolytes stable, potassium borderline at 3.6; BUN 6, creatinine 0.67. Impression: Postoperative day 2; status post laparoscopy, open cholecystectomy - acceptable post op status. Patient complaining of postop pain, however, very little pain/tenderness elicited during my examination. Patient is nauseated and as a result anorexic. Suspect the nausea is due to medications such as morphine and Percocet. Recommendations: Allow diet as tolerated discontinue Morphine and Percocet - trial hydrocodone/ acetaminophen ([place]) Objective Vital Signs - Last 8 Hours Temp Pulse Resp BP Pulse Ox 11/19/16 07:28 98.4 F 76 18 121/64 93 L 11/19/16 03:48 18 90 L 11/19/16 03:46 98.7 F 83 16 110/64 92 L Intake and Output 11/18/16 11/19/16 11/19/16 23:59 07:59 15:59 Intake Total 0 / 0 0 / 0 240 / 240 Output Total 4400 / 4400 0 / 0 0 / 0 Balance -4400 / -4400 0 / 0 240 / 240 Intake: Oral 0 / 0 0 / 0 240 / 240 Output: Urine 4400 / 4400 0 / 0 0 / 0 Other: Meal Breakfast Percent of Meal Consumed 0% Weight 87.1 kg Patient Weight 11/19/16 23:59 Weight 87.1 kg - Labs 11/19/16 05:48 11/19/16 05:48 Diabetes panel 11/19/16 Range/Units 05:48 Sodium 140 (136-145) mEq/L Potassium 3.6 (3.5-4.5) mEq/L Chloride 103 (98-109) mEq/L Carbon Dioxide 31 H (19-29) mEq/L BUN 6 L (8-26) mg/dL Creatinine 0.67 L (0.72-1.25) mg/dL Glucose 96 (70-99) mg/dL Calcium 8.0 L (8.6-10.8) mg/dL Calcium panel 11/19/16 Range/Units 05:48 Calcium 8.0 L (8.6-10.8) mg/dL Phosphorus 3.1 (2.3-4.7) mg/dL Pituitary panel 11/19/16 Range/Units 05:48 Sodium 140 (136-145) mEq/L Potassium 3.6 (3.5-4.5) mEq/L Chloride 103 (98-109) mEq/L Carbon Dioxide 31 H (19-29) mEq/L BUN 6 L (8-26) mg/dL Creatinine 0.67 L (0.72-1.25) mg/dL Glucose 96 (70-99) mg/dL Calcium 8.0 L (8.6-10.8) mg/dL Adrenal panel 11/19/16 Range/Units 05:48 Sodium 140 (136-145) mEq/L Potassium 3.6 (3.5-4.5) mEq/L Chloride 103 (98-109) mEq/L Carbon Dioxide 31 H (19-29) mEq/L BUN 6 L (8-26) mg/dL Creatinine 0.67 L (0.72-1.25) mg/dL Glucose 96 (70-99) mg/dL Calcium 8.0 L (8.6-10.8) mg/dL - VTE Documentation of Mechanical Device: Intermittent pneumatic compression device Consult Discharge Plan - Plan Referrals: Rakan Tobias MD [Non-Partnered Physician] - [place],PCP [Primary Care Provider] - 11/23/16 9:15 am
--- NOTE | 2016-11-19 13:08 | Electrocardiograph Report ---
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
--- NOTE | 2016-11-19 13:08 | Electrocardiograph Report ---
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
--- NOTE | 2016-11-19 13:35 | ECHO - Doppler Report ---
Echocardiogram Name: Niko John Date of Study: 11/19/2016 Date: 1935 Ht: 65.0 in Medical Record#: [id number] Age: 81 Wt: 192.0 lb Gender: Male BSA: 1.94 Order #: [id number] Location: [facility] Room #: 3A56 Reading Physician: Funmi Will DO Tv News Director: Ora Devlin RVT, [facility] Ordering Physician: Lina Del Angel MD Primary Physician: [facility] Indications: Pulmonary edema Impressions: LVEF 65%. Normal left ventricular size and systolic function. Indeterminate left venticular diastoic function Normal right ventricular size and function. No significant valvular dysfunction. At least mild pulmonary hypertension by TR gradient. IVC is not well visualized. Pleural effusion. Left Ventricular Wall Motion: Rest Echo Findings All wall segments showed normal motion. Findings: Study Quality * Technically sub-optimal due to poor echocardiographic windows. Aortic Valve * Trileaflet aortic valve. * No aortic stenosis. * Trace aortic regurgitation. Mitral Valve * No mitral regurgitation. * No mitral stenosis. * Mitral structure suboptimally visualized. Tricuspid Valve * Tricuspid valve not well visualized. * Trace tricuspid regurgitation. Pulmonic Valve * Pulmonic valve is not well visualized. * No pulmonic stenosis. * No pulmonic regurgitation. Pulmonary Artery * Pulmonary artery not well visualized. Right Ventricle * Normal right ventricular structure and function. Right Atrium * Normal right atrial size. Left Ventricle * LVEF 65%. * Indeterminate diastolic function. * Normal LV size and wall thickenss. ECG Findings * Atrial fibrillation. Interatrial Septum * Interatrial septum not well evaluated. IVC * The IVC is not well evaluated. Pericardium * There is no pericardial effusion present. Aorta * Not well visualized. Pleural Effusion * Pleural effusion. Left Atrium * Mildly dilated left atrium. History Hypertension Hypercholesteremia Measurements: BP: 111/ 68 2D Normal Values IVSd: 1.20 cm 0.6 - 1.0 cm LVIDd: 3.80 cm 3.7 - 5.6 cm LVPWd: 1.20 cm 0.6 - 1.1 cm LVIDs: 3.10 cm 1.5 - 3.6 cm AO: 2.90 cm < 4.0 cm %FS: 18.40 cm >25 % LA volume: Mitral Valve Dec Time:222.00 msec Peak E:.81 m/sec Peak A:.37 m/sec E/A Ratio:2.2 Peak E' Lat Fran:13 cm/s Peak E' Med Fran:9.69 cm/s E/E' Lat Ratio:6.2 E/E' Med Ratio:8.3 Tricuspid Valve TV Regurg Peak Grad: 39.00mmHg TV Regurg Peak Fran: 3.11m/sec Updated by Funmi Will on 11/19/2016 1:28:32 PM electronically signed on 11/19/2016 1:29:52 PM with status of Final Wall Motion [place]: 1=Normal, 2=Hypokinesis, 3=Akinesis, 4=Dyskinesis, 5=Aneurysmal, 6=Hyperkinetic, X=Not Visualized (Blank)=Missing
--- NOTE | 2016-11-19 17:35 | Internal Med Progress Note ---
Date of Encounter: 11/19/16 Time of Encounter: 15:00 - Assessment and plan (1) Fluid overload Current Visit: Yes Status: Acute Assessment and plan: secondary to IV fluid hydration (Le edema and pulmonary edema on 11/18/16). 11/18/16: Chest x-ray showed diffuse pulmonary vascular congestion. Clinically improved today after good diuresis of almost 6 L of urine output in the past 24 hours. Decrease IV Lasix to once daily. Qualifiers: Hypervolemia type: unspecified Qualified Code(s): E87.70 - Fluid overload, unspecified (2) Nausea and vomiting Current Visit: Yes Status: Acute Assessment and plan: resolved. due to pulmonary edema. Qualifiers: Vomiting type: unspecified Vomiting Intractability: non-intractable Qualified Code(s): R11.2 - Nausea with vomiting, unspecified (3) Abdominal pain Current Visit: Yes Status: Acute Assessment and plan: secondary to acute pancreatitis. improved. Qualifiers: Abdominal location: generalized Qualified Code(s): R10.84 - Generalized abdominal pain (4) Pancreatitis, acute Current Visit: Yes Status: Acute Assessment and plan: resolved. unclear etiology. triglycerides at 61. no alcohol use. Patient presented with diffuse abdominal pain, lipase more than [address] abdomen/pelvis findings compatible with acute pancreatitis. 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 CT abdomen/pelvis shows sludge in gallbladder, mild pericholecystic stranding and fluid, stranding a small volume of fluid around the head of the pancreas. us abdomen shows liver steatosis, gallbladder sludge, mild perihepatic ascites. EGD was normal. Qualifiers: Pancreatitis type: unspecified pancreatitis type Acute pancreatitis complication: unspecified Qualified Code(s): K85.90 - Acute pancreatitis without necrosis or infection, unspecified (5) Acute respiratory failure with hypoxemia Current Visit: Yes Status: Acute Assessment and plan: secondary pulmonary edema, atelectasis from poor inspiration due to abdominal distension and pain in the setting of emphysema/COPD. Pt had pneumina a few months ago and was sent home on oxygen but PCP stop oxygen 1 month ago. CTA chest showed moderate centrilobular emphysematous changes, mild atelectasis bilaterally, no consolidation. Patient is requiring 3L of oxygen via NC to maintain SaO2 93%. continue oxygen, nebs and lasix. outpatient PFTs. (6) A-fib Current Visit: Yes Status: Chronic Assessment and plan: rate is stable. holding Eliquis for surgery. continue digoxin and metoprolol. Qualifiers: Atrial fibrillation type: paroxysmal Qualified Code(s): I48.0 - Paroxysmal atrial fibrillation (7) COPD (chronic obstructive pulmonary disease) Current Visit: Yes Status: Chronic Assessment and plan: continue symbicort, mucinex and nebs. Qualifiers: COPD type: unspecified COPD Qualified Code(s): J44.9 - Chronic obstructive pulmonary disease, unspecified (8) HTN (hypertension) Current Visit: Yes Status: Chronic Assessment and plan: stable. Qualifiers: Hypertension type: essential hypertension Qualified Code(s): I10 - Essential (primary) hypertension (9) Microcytic anemia Current Visit: Yes Status: Chronic Assessment and plan: has h/o long standing anemia possible 2/2 thalassemia. Ferritin level high. low iron and TSAT as noted in the iron panel. EGD did not show any active bleeding, but colonoscopy has a small ulcer in the cecum, non bleeding, that has been biopsied. Pathology reports diffusely ulcerated colonic mucosa with acute inflammation and granulation tissue with reactive changes. Negative for adenocarcinoma. Patient is hemodynamically stable. no bleeding. - Subjective Interval history: patient reports pain at right rib site. he has tolerated regular diet well at lunch. No nausea or vomiting. Output of 5650 in past 24 hours. - Constitutional Vitals: Temp Pulse Resp BP Pulse Ox 98.2 F 79 18 118/68 93 L 11/19/16 15:28 11/19/16 15:28 11/19/16 17:02 11/19/16 15:28 11/19/16 17:02 General appearance: Present: cooperative, A&O X 3, pleasant, no acute distress, answers questions appropriately - Eye Eye exam: Present: PERRL, sclera anicteric - Neck Neck exam general surgery: Present: supple, trachea midline. Absent: lymphadenopathy - Respiratory Respiratory exam: Present: CTAB - Cardiovascular Cardiovascular exam: Present: RRR - GI/Abdominal GI/Abdominal exam: Present: normal bowel sounds, soft. Absent: distended, tenderness Additional comments: Surgical wound is intact. - Extremities Exam Extremities exam: Present: pedal edema - Back Exam Back exam: Absent: CVA tenderness (L), CVA tenderness (R) - Neurological Exam Neurological exam: Present: alert, oriented X3, no focal deficits, strengths equal and symetr throughout. Absent: facial droop, speech deficit - Skin Skin exam: Absent: rash Internal Medicine: Result - Labs CBC & Chem 7: 11/19/16 05:48 11/19/16 05:48 Labs: Short CBC 11/19/16 Range/Units 05:48 WBC 8.4 (4.3-11.1) K/mcL Hgb 8.7 L (12.9-16.9) g/dL Hct 28.0 L (37.5-50.1) % Plt Count 218 (140-400) K/mcL Neutrophils # 6.2 (1.6-8.9) K/mcL BMP 11/19/16 05:48 Sodium 140 Potassium 3.6 Chloride 103 Carbon Dioxide 31 H BUN 6 L Creatinine 0.67 L Glucose 96 Calcium 8.0 L - ABG Interpretation ABG results: PT/INR, D-dimer PT 14.8 Seconds (9.4-12.1) H 11/18/16 05:05 - Impressions Impressions KUB X-Ray 11/18/16 16:25 IMPRESSION: Nonobstructive bowel gas pattern. D/ / Gary Shaw MD / Gary Shaw MD Interpreting Provider: Gary Shaw MD Chest X-Ray 11/18/16 17:43 IMPRESSION: Bilateral pulmonary edema pattern. Small pleural effusions. D/ / Vinny Hendrix MD / Vinny Hendrix MD Interpreting Provider: Vinny Hendrix MD - VTE Documentation of Mechanical Device: Intermittent pneumatic compression device Consult Discharge Plan - Plan Referrals: Rakan Tobias MD [Non-Partnered Physician] - [place],PCP [Primary Care Provider] - 11/23/16 9:15 am
[2016-11-19] MEDS ORDERED: Pregabalin 50 MG CAPSULE PO ONE (18:12)
--- NOTE | 2016-11-19 18:20 | Event Note ---
Date of Encounter: 11/19/16 Time of Encounter: 18:15 critical care first hour- time spent 30 minutes Called by nurse because patient was complaining of sudden onset of severe right upper quadrant pain radiated to his back. He denies any nausea or vomiting. He ate all his regular lunch tray today. Patient is alert and oriented 3, in mild acute distress from pain in his right upper quadrant about his surgical wound. Vital signs reviewed and are adequate. Examination reveals chest left rales at lung base,, abdomen soft, non-distended, very tender to superficial palpation at RUQ and flannk area, skin at his back is intact, no bulging or hematoma noted. A/PLAN: RUQ pain. no acute abdomen. could be secondary to nerve pain, indigestion (first meal after being NPO for a few days). check H/H. stat IV dilaudid and lyrica. close monitoring. if pain persist, I will order CT abdomen/ pelvis without contrast.
[2016-11-19 18:37] LABS: Hematocrit 28.4 % (37.5-50.1); Hemoglobin 8.8 g/dL (12.9-16.9)
[2016-11-19] MEDS: *HR* HYDROmorphone (PF) 1 MG/ML SYRINGE IVP PRN ×2 (19:00→23:53)
[2016-11-20] MEDS: Ipratropium/Albuterol Neb 3 ML IH SCH ×6 (00:51→20:24)
[2016-11-20] MEDS: *HR* HYDROmorphone (PF) 1 MG/ML SYRINGE IVP PRN ×2 (04:26→07:54)
[2016-11-20 06:12] LABS: Basophils % 0.3 %; Eosinophils # 0.3 K/mcL (0.0-0.6); Eosinophils % 2.9 %; Hematocrit 29.7 % (37.5-50.1); Hemoglobin 9.4 g/dL (12.9-16.9); Immature Granulocytes % 0.6 % (0-4); Lymphocytes # 1.3 K/mcL (0.6-4.6); Lymphocytes % 12.7 %; Mean Corpuscular HGB Conc 31.6 g/dL (31.6-35.5); Mean Corpuscular Hemoglobin 20.5 pg (28.0-33.3); Mean Corpuscular Volume 64.8 fL (83.0-100.0); Mean Platelet Volume 10.3 fL (9.4-12.4); Monocytes # 1.1 K/mcL (0.0-1.3); Monocytes % 11.3 %; Platelet Count 230 K/mcL (140-400); Red Blood Count 4.58 M/mcL (4.19-5.50); Red Cell Distribution Width 17.4 % (11.5-14.5); Segmented Neutrophils % 72.2 %
[2016-11-20 06:19] LABS: Neutrophils # 7.2 K/mcL (1.6-8.9)
[2016-11-20 06:29] LABS: BUN/Creatinine Ratio 12 (6-26); Blood Urea Nitrogen 8 mg/dL (8-26); Calcium 7.9 mg/dL (8.6-10.8); Carbon Dioxide 29 mEq/L (19-29); Chloride 99 mEq/L (98-109); Digoxin 0.6 ng/mL (0.8-2.0); Glucose 90 mg/dL (70-99); Magnesium 1.7 mg/dL (1.6-2.6); Osmolality,Calculated 282 (280-300); Potassium 3.6 mEq/L (3.5-4.5); Sodium 137 mEq/L (136-145); eGFR For African Americans > 60 (> 60); eGFR For Non-African Americans > 60 (> 60)
[2016-11-20 06:56] LABS: Microcytosis Present (Not Present); Ovalocytes 1+ (Not Present); Polychromasia 1+ (Not Present)
[2016-11-20 06:57] LABS: Platelet Estimate Normal (Normal); Target Cells 1+ (Not Present)
[2016-11-20 06:58] LABS: Anisocytosis 1+ (Not Present); Poikilocytosis 1+ (Not Present); Tear Drop Cells 1+ (Not Present)
[2016-11-20] MEDS: Budesonide/Formoterol 160/4.5 MDI IH SCH ×2 (08:17→20:24)
[2016-11-20] MEDS ORDERED: Furosemide 40 MG/4 ML VIAL IVP SCH (09:00)
[2016-11-20] MEDS: *HR* Digoxin 0.125 MG TABLET PO SCH (09:25)
[2016-11-20] MEDS: Gabapentin 300 MG CAPSULE PO SCH ×3 (09:25→22:18)
--- NOTE | 2016-11-20 11:15 | Internal Med Progress Note ---
Date of Encounter: 11/20/16 Time of Encounter: 10:40 - Assessment and plan (1) Abdominal pain Current Visit: Yes Status: Acute Assessment and plan: POD #3. Had open cholecystectomy 11/17. 11/19: patient developed sudden onset of severe right upper quadrant/flank pain. He denies any nausea or vomiting. He ate all his regular lunch tray this day. 11/20: right flank pain is unbearable and impedes him from move or eat. check CT abdomen/pelvis and CXR. close monitor. Qualifiers: Abdominal location: generalized Qualified Code(s): R10.84 - Generalized abdominal pain (2) Acute respiratory failure with hypoxemia Current Visit: Yes Status: Acute Assessment and plan: secondary pulmonary edema, atelectasis from poor inspiration due to abdominal distension and pain in the setting of emphysema/COPD. Pt had pneumina a few months ago and was sent home on oxygen but PCP stop oxygen 1 month ago. CTA chest showed moderate centrilobular emphysematous changes, mild atelectasis bilaterally, no consolidation. Patient is requiring 3L of oxygen via [place] to maintain SaO2 93%. continue oxygen, nebs and lasix. outpatient PFTs. (3) Fluid overload Current Visit: Yes Status: Acute Assessment and plan: Secondary to IV fluid hydration (LE edema and pulmonary edema on 11/18/16). 11/18/16: Chest x-ray showed diffuse pulmonary vascular congestion. Good urine output. Pt is close to euvolemia. decrease Iv Lasix. Qualifiers: Hypervolemia type: unspecified Qualified Code(s): E87.70 - Fluid overload, unspecified (4) Nausea and vomiting Current Visit: Yes Status: Acute Assessment and plan: resolved. due to pulmonary edema. Qualifiers: Vomiting type: unspecified Vomiting Intractability: non-intractable Qualified Code(s): R11.2 - Nausea with vomiting, unspecified (5) Pancreatitis, acute Current Visit: Yes Status: Acute Assessment and plan: resolved. unclear etiology. triglycerides at 61. no alcohol use. Patient presented with diffuse abdominal pain, lipase more than [address] abdomen/pelvis findings compatible with acute pancreatitis. 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 CT abdomen/pelvis shows sludge in gallbladder, mild pericholecystic stranding and fluid, stranding a small volume of fluid around the head of the pancreas. us abdomen shows liver steatosis, gallbladder sludge, mild perihepatic ascites. EGD was normal. Qualifiers: Pancreatitis type: unspecified pancreatitis type Acute pancreatitis complication: unspecified Qualified Code(s): K85.90 - Acute pancreatitis without necrosis or infection, unspecified (6) A-fib Current Visit: Yes Status: Chronic Assessment and plan: rate is stable. holding Eliquis for surgery. continue digoxin and metoprolol. Qualifiers: Atrial fibrillation type: paroxysmal Qualified Code(s): I48.0 - Paroxysmal atrial fibrillation (7) COPD (chronic obstructive pulmonary disease) Current Visit: Yes Status: Chronic Assessment and plan: continue symbicort, mucinex and nebs. Qualifiers: COPD type: unspecified COPD Qualified Code(s): J44.9 - Chronic obstructive pulmonary disease, unspecified (8) HTN (hypertension) Current Visit: Yes Status: Chronic Assessment and plan: stable. Qualifiers: Hypertension type: essential hypertension Qualified Code(s): I10 - Essential (primary) hypertension (9) Microcytic anemia Current Visit: Yes Status: Chronic Assessment and plan: has h/o long standing anemia possible 2/2 thalassemia. Ferritin level high. low iron and TSAT as noted in the iron panel. EGD did not show any active bleeding, but colonoscopy has a small ulcer in the cecum, non bleeding, that has been biopsied. Pathology reports diffusely ulcerated colonic mucosa with acute inflammation and granulation tissue with reactive changes. Negative for adenocarcinoma. hgb 9.4. Patient is hemodynamically stable. no bleeding. - Subjective Interval history: patient still complaining of severe pain in right flank area that has impede him from eating, or moving. - Constitutional Vitals: Temp Pulse Resp BP Pulse Ox 99.4 F 95 16 124/68 92 L 11/20/16 07:47 11/20/16 07:47 11/20/16 11:04 11/20/16 07:47 11/20/16 11:04 General appearance: Present: cooperative, A&O X 3, pleasant, no acute distress, answers questions appropriately - Eye Eye exam: Present: PERRL, sclera anicteric - ENT ENT exam: Present: mucous membranes moist - Neck Neck exam general surgery: Present: supple, trachea midline. Absent: lymphadenopathy - Respiratory Respiratory exam: Present: rales (at bases). Absent: wheezes - Cardiovascular Cardiovascular exam: Present: tachycardia - GI/Abdominal GI/Abdominal exam: Present: distended, hypoactive bowel sounds, soft Additional comments: right flank tenderness. - Extremities Exam Extremities exam: Present: pedal edema - Neurological Exam Neurological exam: Present: alert, no focal deficits, strengths equal and symetr throughout. Absent: facial droop, speech deficit - Skin Skin exam: Absent: rash Additional comments: skin at his back is without any bruises but very tender to palpation. Internal Medicine: Result - Labs CBC & Chem 7: 11/20/16 05:41 11/20/16 05:41 Labs: Short CBC 11/19/16 11/20/16 Range/Units 18:29 05:41 WBC 9.9 (4.3-11.1) K/mcL Hgb 8.8 L 9.4 L (12.9-16.9) g/dL Hct 28.4 L 29.7 L (37.5-50.1) % Plt Count 230 (140-400) K/mcL Neutrophils # 7.2 (1.6-8.9) K/mcL BMP 11/20/16 05:41 Sodium 137 Potassium 3.6 Chloride 99 Carbon Dioxide 29 BUN 8 Creatinine 0.69 L Glucose 90 Calcium 7.9 L - ABG Interpretation ABG results: PT/INR, D-dimer PT 14.8 Seconds (9.4-12.1) H 11/18/16 05:05 - VTE Documentation of Mechanical Device: Intermittent pneumatic compression device Consult Discharge Plan - Plan Referrals: Rakan Tobias MD [Non-Partnered Physician] - [place],PCP [Primary Care Provider] - 11/23/16 9:15 am
[2016-11-20] MEDS: *HR* OxyCODONE Immed Rel 5 MG TABLET PO PRN ×2 (12:00→16:14)
[2016-11-20] MEDS: Acetaminophen 325 MG TABLET PO PRN (14:58)
[2016-11-20] MEDS ORDERED: Piperacillin/Tazobactam 3.375 GM in D5% in Water (Mini-Bag+) 100 ML IVPB STA (15:07)
[2016-11-20] MEDS ORDERED: Vancomycin 1,250 MG in D5% in Water 250 ML IVPB STA (15:09)
[2016-11-20] MEDS ORDERED: 0.9 % Sodium Chloride 250 ML IVC STA (15:18)
[2016-11-20] MEDS ORDERED: Vancomycin 1,250 MG in D5% in Water 250 ML IVPB SCH (16:00)
[2016-11-20 16:18] LABS: Bilirubin,Urine Negative (Negative); Blood,Urine Negative (Negative); Clarity,Urine Clear (Clear); Color,Urine Yellow (Yellow); Glucose,Urine (UA) Normal (Normal); Ketones,Urine Trace mg/dL (Negative); Leukocyte Esterase,Urine Negative (Negative); Nitrite,Urine Negative (Negative); Protein,Urine Negative (Neg-Trace); Specific Gravity,Urine 1.013 (1.010-1.025); Urobilinogen,Urine Normal (Normal)
[2016-11-20 16:21] LABS: INR 1.5; Prothrombin Time 15.9 Seconds (9.4-12.1)
[2016-11-20 16:29] LABS: Alanine Aminotransferase 18 Units/L (0-55); Albumin 2.9 g/dL (3.5-5.0); Albumin/Globulin Ratio 0.9 (1.1-2.2); Alkaline Phosphatase 157 Units/L (38-126); Aspartate Amino Transferase 17 Units/L (5-34); Bilirubin,Direct 1.3 mg/dL (0.0-0.5); Globulin 3.1 g/dL (2.4-3.5); Lactate Dehydrogenase 173 Units/L (159-327); Lipase 50 Units/L (8-78)
[2016-11-20 16:30] LABS: Bilirubin,Total 2.3 mg/dL (0.2-1.2)
[2016-11-20] MEDS: Vancomycin 1,250 MG in D5% in Water 250 ML IVPB SCH (16:50)
[2016-11-20] MEDS ORDERED: *HR* Morphine 2 MG/ML SYRINGE IVP PRN (17:27)
--- NOTE | 2016-11-20 18:07 | General Surgery Progress Note ---
Date of Encounter: 11/20/16 Time of Encounter: 17:49 Subjective Patient reports: still having pain, other (anorexia) Narrative: Postoperative day 3: Patient seen earlier today and again at this hour pending completion CT abdomen and pelvis. The CT abdomen and pelvis was personally reviewed with [facility]. 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 Moderate bilateral lower airspace disease and small bilateral pleural effusions also described (see CT and CXR) The gaseous distention of the stomach is the most likely source for the patient' s anorexia. Lungs: clear to auscultation anteriorly; diminished breath sounds both bases Abdomen: soft, active bowel sounds. Subcostal incision clean and dry. Tenderness most pronounced with palpation of the right costal margin - consistent with retraction during surgery. Laboratories: White count 9.9; hemoglobin 9.4 with hematocrit 29.7 (H&H rising consistent with diuresis) platelet count 230,000 Electrolytes, BUN, creatinine within normal limits Bilirubin has increased to 2.3; alkaline phosphatase is also elevated,157, but AST and ALT are within normal limits; lipase is also normal at 50. Pathology: Still pending Impression: Postoperative day #3; status post laparoscopy, open cholecystectomy. CT and chest x-ray demonstrates the expected postoperative changes particularly in this elderly gentleman with multiple comorbidities. Hyperbilirubinemia with elevated alkaline phosphatase (normal AST, ALT) possibly due to hepatic insufficiency Moderate bilateral airspace disease consistent with the patient's previous history of significant tobacco abuse Recommendations: Consider NG decompression of gaseous distention of the stomach, if it persists, particularly if the patient continues to complain of nausea. Aggressive pulmonary toilet Recheck LFTs in a.m. - while bile leak is is considered unlikely, per the recent CT, an Hb scan can be considered if the bilirubin continues to rise. Objective Vital Signs - Last 8 Hours Temp Pulse Resp BP Pulse Ox 11/20/16 16:40 16 92 L 11/20/16 15:57 98.7 F 88 18 91 L 11/20/16 15:02 101.3 F H 88 18 99/60 90 L 11/20/16 11:04 16 92 L Intake and Output 11/20/16 11/20/16 11/20/16 07:59 15:59 23:59 Intake Total 0 / 0 200 / 200 250 / 250 Output Total 650 / 650 150 / 150 Balance -650 / -650 50 / 50 250 / 250 Intake: IV Fluids 250 / 250 0.9 % Sodium Chloride 250 250 / 250 ML @ 937.5 mls/hr IVC . Q16M STA Rx#:[id number] Oral 0 / 0 200 / 200 Output: Urine 650 / 650 150 / 150 Other: Meal NPO Percent of Meal Consumed 0% - Labs 11/20/16 05:41 11/20/16 05:41 Diabetes panel 11/20/16 11/20/16 Range/Units 05:41 15:54 Sodium 137 (136-145) mEq/L Potassium 3.6 (3.5-4.5) mEq/L Chloride 99 (98-109) mEq/L Carbon Dioxide 29 (19-29) mEq/L BUN 8 (8-26) mg/dL Creatinine 0.69 L (0.72-1.25) mg/dL Glucose 90 (70-99) mg/dL Calcium 7.9 L (8.6-10.8) mg/dL AST 17 (5-34) Units/L ALT 18 (0-55) Units/L Alkaline Phosphatase 157 H (38-126) Units/L Albumin 2.9 L (3.5-5.0) g/dL Calcium panel 11/20/16 11/20/16 Range/Units 05:41 15:54 Calcium 7.9 L (8.6-10.8) mg/dL Albumin 2.9 L (3.5-5.0) g/dL Pituitary panel 11/20/16 Range/Units 05:41 Sodium 137 (136-145) mEq/L Potassium 3.6 (3.5-4.5) mEq/L Chloride 99 (98-109) mEq/L Carbon Dioxide 29 (19-29) mEq/L BUN 8 (8-26) mg/dL Creatinine 0.69 L (0.72-1.25) mg/dL Glucose 90 (70-99) mg/dL Calcium 7.9 L (8.6-10.8) mg/dL Adrenal panel 11/20/16 11/20/16 Range/Units 05:41 15:54 Sodium 137 (136-145) mEq/L Potassium 3.6 (3.5-4.5) mEq/L Chloride 99 (98-109) mEq/L Carbon Dioxide 29 (19-29) mEq/L BUN 8 (8-26) mg/dL Creatinine 0.69 L (0.72-1.25) mg/dL Glucose 90 (70-99) mg/dL Calcium 7.9 L (8.6-10.8) mg/dL Total Bilirubin 2.3 H D (0.2-1.2) mg/dL AST 17 (5-34) Units/L ALT 18 (0-55) Units/L Alkaline Phosphatase 157 H (38-126) Units/L Albumin 2.9 L (3.5-5.0) g/dL - VTE Documentation of Mechanical Device: Intermittent pneumatic compression device Consult Discharge Plan - Plan Referrals: Rakan Tobias MD [Non-Partnered Physician] -
[2016-11-20 18:28] LABS: BUN/Creatinine Ratio 12 (6-26); Blood Urea Nitrogen 9 mg/dL (8-26); Calcium 8.2 mg/dL (8.6-10.8); Carbon Dioxide 29 mEq/L (19-29); Chloride 93 mEq/L (98-109); Glucose 102 mg/dL (70-99); Osmolality,Calculated 275 (280-300); Potassium 3.7 mEq/L (3.5-4.5); Sodium 133 mEq/L (136-145); eGFR For African Americans > 60 (> 60); eGFR For Non-African Americans > 60 (> 60)
[2016-11-20] MEDS: *HR* Morphine 2 MG/ML SYRINGE IVP PRN (22:11)
[2016-11-20] MEDS: D5% in 0.9% NACL w KCl 20 MEQ/1,000 ML MLS IVC SCH (22:16)
[2016-11-20] MEDS: Chloraseptic Spray 177 ML BOTTLE MM PRN (22:18)
[2016-11-21] MEDS: Ipratropium/Albuterol Neb 3 ML IH SCH ×7 (00:02→23:28)
[2016-11-21] MEDS: Piperacillin/Tazobactam 3.375 GM in D5% in Water (Mini-Bag+) 100 ML IVPB SCH ×4 (00:42→23:48)
[2016-11-21] MEDS: *HR* Morphine 2 MG/ML SYRINGE IVP PRN ×6 (01:21→18:29)
[2016-11-21] MEDS: Vancomycin 1,250 MG in D5% in Water 250 ML IVPB SCH ×2 (04:56→16:25)
[2016-11-21 07:28] LABS: Basophils % 0.2 %; Eosinophils # 0.1 K/mcL (0.0-0.6); Eosinophils % 1.1 %; Hematocrit 28.9 % (37.5-50.1); Immature Granulocytes % 0.7 % (0-4); Lymphocytes # 0.7 K/mcL (0.6-4.6); Lymphocytes % 7.9 %; Mean Corpuscular HGB Conc 31.1 g/dL (31.6-35.5); Mean Corpuscular Volume 64.4 fL (83.0-100.0); Mean Platelet Volume 9.8 fL (9.4-12.4); Neutrophils # 6.9 K/mcL (1.6-8.9); Platelet Count 222 K/mcL (140-400); Red Blood Count 4.49 M/mcL (4.19-5.50); Red Cell Distribution Width 17.2 % (11.5-14.5); Segmented Neutrophils % 79.1 %
[2016-11-21] MEDS: Budesonide/Formoterol 160/4.5 MDI IH SCH ×2 (07:36→20:39)
[2016-11-21 07:42] LABS: Albumin 2.4 g/dL (3.5-5.0); Albumin/Globulin Ratio 0.9 (1.1-2.2); Bilirubin,Direct 1.6 mg/dL (0.0-0.5); Bilirubin,Indirect 0.8 mg/dL (0.0-1.2); Bilirubin,Total 2.4 mg/dL (0.2-1.2); Globulin 2.7 g/dL (2.4-3.5); Magnesium 1.9 mg/dL (1.6-2.6); Total Protein 5.1 g/dL (6.0-8.3)
[2016-11-21 07:55] LABS: Anisocytosis 2+ (Not Present); Hypochromasia Present (Not Present); Microcytosis Present (Not Present); Platelet Estimate Normal (Normal)
[2016-11-21] MEDS ORDERED: Furosemide 20 MG/2 ML VIAL IVP SCH (08:00)
[2016-11-21] MEDS: Gabapentin 300 MG CAPSULE PO SCH ×2 (08:28→14:27)
[2016-11-21] MEDS: *HR* Digoxin 0.125 MG TABLET PO SCH (08:28)
[2016-11-21] MEDS: Ondansetron 4 MG/2 ML VIAL IVP PRN (08:40)
[2016-11-21] MEDS: Chloraseptic Spray 177 ML BOTTLE MM PRN (09:51)
[2016-11-21] MEDS: D5% in 0.9% NACL w KCl 20 MEQ/1,000 ML MLS IVC SCH (09:52)
[2016-11-21] MEDS: *HR* Metoprolol 5 MG/5 ML VIAL IVP SCH ×3 (12:18→23:49)
[2016-11-21 12:39] LABS: BUN/Creatinine Ratio 9 (6-26); Blood Urea Nitrogen 6 mg/dL (8-26); Calcium 7.8 mg/dL (8.6-10.8); Carbon Dioxide 31 mEq/L (19-29); Chloride 98 mEq/L (98-109); Glucose 127 mg/dL (70-99); Osmolality,Calculated 283 (280-300); Potassium 3.5 mEq/L (3.5-4.5); eGFR For African Americans > 60 (> 60); eGFR For Non-African Americans > 60 (> 60)
[2016-11-21 12:40] LABS: Sodium 137 mEq/L (136-145)
--- NOTE | 2016-11-21 15:36 | General Surgery Progress Note ---
Date of Encounter: 11/21/16 Time of Encounter: 15:26 Subjective Narrative: Postoperative day 4: Patient reported to have extremely restless night. Patient still complaining of upper abdominal pain NG placed for gastric distention - 850 mL green- brown fluid aspirated since insertion Maximum temperature 99.3; pulse 79-102; respiratory rate 18, blood pressure 131/75. Lungs: Clear to auscultation, no obvious pain with deep inspiration Abdomen: Soft, pain around the costal incision as expected. No peritoneal signs identified. Hypoactive bowel sounds - very few audible during my examination Urine output approximately 1100 mL in the last 24 hours Laboratories: White count 8.7, hemoglobin 9.0 with hematocrit 28.9. Platelet count 222,000 Sodium 137, calcium borderline at 3.5; BUNs 6, creatinine 0.69 Bilirubin 2.4/direct 1.6; AST 13, ALT 15, alkaline phosphatase 147 Pathology: Still pending HP scan was personally reviewed with [facility] - findings include homogeneous uptake by the liver with normal excretion of radiotracer into the biliary system. Progressive abnormal accumulation of radiotracer in the right upper quadrant is noted with later images showing extension of the tracer into the right paracolic gutter. The abnormal accumulation of radiotracer in the right upper quadrant may be subcapsular. Drainage to be considered if the leak continues or peritoneal signs develop. These findings were discussed in detail with the patient's family Plan: Continue to monitor; check acute abdominal series in a.m. as well as repeat labs. Objective Vital Signs - Last 8 Hours Temp Pulse Resp BP Pulse Ox 11/21/16 12:36 99.3 F 102 18 116/71 90 L 11/21/16 07:36 18 93 L Intake and Output 11/20/16 11/21/16 11/21/16 23:59 07:59 15:59 Intake Total 600 / 600 100 / 100 1250 / 1250 Output Total 300 / 300 600 / 600 250 / 250 Balance 300 / 300 -500 / -500 1000 / 1000 Intake: IV Fluids 600 / 600 100 / 100 1250 / 1250 0.9 % Sodium Chloride 250 250 / 250 ML @ 937.5 mls/hr IVC . Q16M STA Rx#:[id number] KCl 20mEq in D5-0.9 NaCl 1000 / 1000 20 meq In 1,000 ml @ 100 mls/hr IVC .Q10H DONI Rx#: [id number] Zosyn 3.375 GM In 100 / 100 100 / 100 Dextrose 5% (Minibag+) 100 ML 100 ML @ 25 mls/hr IVPB Q8HR DONI Rx#: [id number] Vancocin 1,250 MG In 250 / 250 250 / 250 Dextrose 5% 250 ML @ 166. 67 mls/hr IVPB Q12H DONI Rx#:[id number] Oral 0 / 0 0 / 0 0 / 0 Output: Urine 300 / 300 0 / 0 0 / 0 Gastric Drainage 600 / 600 250 / 250 Other: Percent of Meal Consumed 0% Weight 88.3 kg Blood Glucose* 118 138 122 Patient Weight 11/21/16 23:59 Weight 88.3 kg - Labs 11/21/16 06:59 11/21/16 12:15 Diabetes panel 11/20/16 11/21/16 11/21/16 Range/Units 15:54 06:59 12:15 Sodium 133 L 137 (136-145) mEq/L Potassium 3.7 3.5 (3.5-4.5) mEq/L Chloride 93 L 98 (98-109) mEq/L Carbon Dioxide 29 31 H (19-29) mEq/L BUN 9 6 L (8-26) mg/dL Creatinine 0.74 0.69 L (0.72-1.25) mg/dL Glucose 102 H 127 H (70-99) mg/dL Calcium 8.2 L 7.8 L (8.6-10.8) mg/dL AST 17 13 (5-34) Units/L ALT 18 15 (0-55) Units/L Alkaline Phosphatase 157 H 147 H (38-126) Units/L Albumin 2.9 L 2.4 L (3.5-5.0) g/dL Calcium panel 11/20/16 11/21/16 11/21/16 Range/Units 15:54 06:59 12:15 Calcium 8.2 L 7.8 L (8.6-10.8) mg/dL Albumin 2.9 L 2.4 L (3.5-5.0) g/dL Pituitary panel 11/20/16 11/21/16 Range/Units 15:54 12:15 Sodium 133 L 137 (136-145) mEq/L Potassium 3.7 3.5 (3.5-4.5) mEq/L Chloride 93 L 98 (98-109) mEq/L Carbon Dioxide 29 31 H (19-29) mEq/L BUN 9 6 L (8-26) mg/dL Creatinine 0.74 0.69 L (0.72-1.25) mg/dL Glucose 102 H 127 H (70-99) mg/dL Calcium 8.2 L 7.8 L (8.6-10.8) mg/dL Adrenal panel 11/20/16 11/21/16 11/21/16 Range/Units 15:54 06:59 12:15 Sodium 133 L 137 (136-145) mEq/L Potassium 3.7 3.5 (3.5-4.5) mEq/L Chloride 93 L 98 (98-109) mEq/L Carbon Dioxide 29 31 H (19-29) mEq/L BUN 9 6 L (8-26) mg/dL Creatinine 0.74 0.69 L (0.72-1.25) mg/dL Glucose 102 H 127 H (70-99) mg/dL Calcium 8.2 L 7.8 L (8.6-10.8) mg/dL Total Bilirubin 2.3 H D 2.4 H (0.2-1.2) mg/dL AST 17 13 (5-34) Units/L ALT 18 15 (0-55) Units/L Alkaline Phosphatase 157 H 147 H (38-126) Units/L Albumin 2.9 L 2.4 L (3.5-5.0) g/dL - VTE Documentation of Mechanical Device: Intermittent pneumatic compression device Consult Discharge Plan - Plan Referrals: Rakan Tobias MD [Non-Partnered Physician] -
[2016-11-21] MEDS ORDERED: *HR* Digoxin 0.5 MG/2 ML AMPUL IVP ONE (15:51)
[2016-11-21] MEDS: D5% in Lactated Ringers 1,000 ML IVC SCH (16:30)
--- NOTE | 2016-11-21 17:15 | Internal Med Progress Note ---
Date of Encounter: 11/21/16 Time of Encounter: 11:00 - Assessment and plan (1) Abdominal pain Current Visit: Yes Status: Acute Assessment and plan: POD #3. Had open cholecystectomy 11/17. 11/19: patient developed sudden onset of severe right upper quadrant/flank pain. He denies any nausea or vomiting. He ate all his regular lunch tray this day. 11/20/16: Ct abdomen/pelvis shows stomach is significantly dilated, PHARMACEUTICAL OFFICER shunt extending from the chest into the right upper quadrant, trace fluid in the gallbladder fossa and small hematoma along liver edge findings consistent with recent open cholecystectomy, there is small amount of ascites. Patient had placement of NG tube 11/20 and 850 ml of greenish brownish fluid aspirated. Appreciate surgery service help: HP scan ordered given raise in bilirrubin and suspicious of biliary leak. continue to follow surgery recommendation. Qualifiers: Abdominal location: generalized Qualified Code(s): R10.84 - Generalized abdominal pain (2) Acute respiratory failure with hypoxemia Current Visit: Yes Status: Acute Assessment and plan: secondary PNA, pulmonary edema, atelectasis from poor inspiration due to abdominal distension and pain in the setting of emphysema/COPD. Pt had pneumina a few months ago and was sent home on oxygen but PCP stop oxygen 1 month ago. CTA chest showed moderate centrilobular emphysematous changes, mild atelectasis bilaterally, no consolidation. 11/20: pt had fever and chest x ray shows pleural effusion and bilateral airspace disease. Started on IV Zosyn and IV Vancomcycin. continue oxygen and nebs. Patient is requiring 3L of oxygen via NC to maintain SaO2 93%. (3) Pneumonia Current Visit: Yes Status: Acute Assessment and plan: bacterial pneumonia, likely aspiration secondary to gastric dilation. plan as above. empiric antibiotics. Qualifiers: Pneumonia type: aspiration pneumonia Aspiration pneumonia type: due to gastric secretions Laterality: bilateral Lung location: lower lobe of lung Qualified Code(s): J69.0 - Pneumonitis due to inhalation of food and vomit (4) Fluid overload Current Visit: Yes Status: Acute Assessment and plan: Secondary to IV fluid hydration (LE edema and pulmonary edema on 11/18/16). 11/18/16: Chest x-ray showed diffuse pulmonary vascular congestion. 11/19: Echocardiogram revealed LVEF 65%. 11/20 resolved. stop IV fluids. Qualifiers: Hypervolemia type: unspecified Qualified Code(s): E87.70 - Fluid overload, unspecified (5) Nausea and vomiting Current Visit: Yes Status: Acute Assessment and plan: resolved. due to pulmonary edema. Qualifiers: Vomiting type: unspecified Vomiting Intractability: non-intractable Qualified Code(s): R11.2 - Nausea with vomiting, unspecified (6) Pancreatitis, acute Current Visit: Yes Status: Acute Assessment and plan: resolved. unclear etiology. triglycerides at 61. no alcohol use. Patient presented with diffuse abdominal pain, lipase more than [address] abdomen/pelvis findings compatible with acute pancreatitis. Patient not candidate for MRCP due to h/o shunt in the brain, no records could be obtained form [place] as it was too long ago. CT abdomen/pelvis shows sludge in gallbladder, mild pericholecystic stranding and fluid, stranding a small volume of fluid around the head of the pancreas. us abdomen shows liver steatosis, gallbladder sludge, mild perihepatic ascites. EGD was normal. Qualifiers: Pancreatitis type: unspecified pancreatitis type Acute pancreatitis complication: unspecified Qualified Code(s): K85.90 - Acute pancreatitis without necrosis or infection, unspecified (7) A-fib Current Visit: Yes Status: Chronic Assessment and plan: rate is stable. holding Eliquis for surgery. continue digoxin and metoprolol. Qualifiers: Atrial fibrillation type: paroxysmal Qualified Code(s): I48.0 - Paroxysmal atrial fibrillation (8) COPD (chronic obstructive pulmonary disease) Current Visit: Yes Status: Chronic Assessment and plan: continue symbicort, mucinex and nebs. Qualifiers: COPD type: unspecified COPD Qualified Code(s): J44.9 - Chronic obstructive pulmonary disease, unspecified (9) HTN (hypertension) Current Visit: Yes Status: Chronic Assessment and plan: stable. Qualifiers: Hypertension type: essential hypertension Qualified Code(s): I10 - Essential (primary) hypertension (10) Microcytic anemia Current Visit: Yes Status: Chronic Assessment and plan: has h/o long standing anemia possible 2/2 thalassemia. Ferritin level high. low iron and TSAT as noted in the iron panel. EGD did not show any active bleeding, but colonoscopy has a small ulcer in the cecum, non bleeding, that has been biopsied. Pathology reports diffusely ulcerated colonic mucosa with acute inflammation and granulation tissue with reactive changes. Negative for adenocarcinoma. hgb 9. Patient is hemodynamically stable. no external bleeding. - Subjective Interval history: NGT placed for gastric distension- 850 ml of green-brownish color fluid since this morning. right upper abdomen and flank pain is unchanged. He was not able to sleep overnight. - Constitutional Vitals: Temp Pulse Resp BP Pulse Ox 98.9 F 116 18 114/70 90 L 11/21/16 15:50 11/21/16 15:50 11/21/16 15:50 11/21/16 15:50 11/21/16 15:50 General appearance: Present: cooperative, A&O X 3, pleasant, no acute distress, answers questions appropriately Internal Medicine: Result - Labs CBC & Chem 7: 11/21/16 06:59 11/21/16 12:15 Labs: Short CBC 11/21/16 Range/Units 06:59 WBC 8.7 (4.3-11.1) K/mcL Hgb 9.0 L (12.9-16.9) g/dL Hct 28.9 L (37.5-50.1) % Plt Count 222 (140-400) K/mcL Neutrophils # 6.9 (1.6-8.9) K/mcL BMP 11/20/16 11/21/16 15:54 12:15 Sodium 133 L 137 Potassium 3.7 3.5 Chloride 93 L 98 Carbon Dioxide 29 31 H BUN 9 6 L Creatinine 0.74 0.69 L Glucose 102 H 127 H Calcium 8.2 L 7.8 L Liver Function 11/21/16 Range/Units 06:59 Total Bilirubin 2.4 H (0.2-1.2) mg/dL Direct Bilirubin 1.6 H (0.0-0.5) mg/dL AST 13 (5-34) Units/L ALT 15 (0-55) Units/L Alkaline Phosphatase 147 H (38-126) Units/L Albumin 2.4 L (3.5-5.0) g/dL - ABG Interpretation ABG results: PT/INR, D-dimer PT 15.9 Seconds (9.4-12.1) H 11/20/16 15:54 - Impressions Impressions Bile Acid Absorption NM 11/21/16 08:36 IMPRESSION: Positive for bile leak. D/ / Acosta Thomas MD / Acosta Thomas MD Interpreting Provider: Acosta Thomas MD - VTE Documentation of Mechanical Device: Intermittent pneumatic compression device Consult Discharge Plan - Plan Referrals: Rakan Tobias MD [Non-Partnered Physician] -
[2016-11-21] MEDS: *HR* HYDROmorphone (PF) 1 MG/ML SYRINGE IVP PRN (20:23)
[2016-11-22] MEDS ORDERED: Acetaminophen IV 500 MG/50 ML INFUS..BTL IVPB ONE (00:29)
[2016-11-22] MEDS: *HR* HYDROmorphone (PF) 1 MG/ML SYRINGE IVP PRN ×2 (01:17→04:13)
[2016-11-22] MEDS: Ipratropium/Albuterol Neb 3 ML IH SCH ×6 (03:44→23:49)
[2016-11-22 04:30] LABS: Basophils % 0.4 %; Eosinophils # 0.1 K/mcL (0.0-0.6); Eosinophils % 1.5 %; Hematocrit 28.4 % (37.5-50.1); Hemoglobin 8.8 g/dL (12.9-16.9); Immature Granulocytes % 0.6 % (0-4); Immature Platelets 4.6 % (1.1-6.1); Lymphocytes % 9.3 %; Mean Corpuscular Hemoglobin 19.9 pg (28.0-33.3); Mean Corpuscular Volume 64.3 fL (83.0-100.0); Mean Platelet Volume 10.3 fL (9.4-12.4); Monocytes % 12.7 %; Platelet Count 219 K/mcL (140-400); Red Blood Count 4.42 M/mcL (4.19-5.50); Segmented Neutrophils % 75.5 %
[2016-11-22 04:42] LABS: Alanine Aminotransferase 14 Units/L (0-55); Alkaline Phosphatase 152 Units/L (38-126); Aspartate Amino Transferase 14 Units/L (5-34); BUN/Creatinine Ratio 10 (6-26); Bilirubin,Total 2.9 mg/dL (0.2-1.2); Blood Urea Nitrogen 7 mg/dL (8-26); Calcium 7.9 mg/dL (8.6-10.8); Carbon Dioxide 32 mEq/L (19-29); Chloride 99 mEq/L (98-109); Glucose 113 mg/dL (70-99); Osmolality,Calculated 285 (280-300); Potassium 3.2 mEq/L (3.5-4.5); eGFR For African Americans > 60 (> 60); eGFR For Non-African Americans > 60 (> 60)
[2016-11-22 04:44] LABS: Lymphocytes # 0.7 K/mcL (0.6-4.6)
[2016-11-22 05:06] LABS: Sodium 138 mEq/L (136-145)
[2016-11-22 05:20] LABS: Microcytosis Present (Not Present)
[2016-11-22 05:21] LABS: Anisocytosis 1+ (Not Present); Hypochromasia Present (Not Present); Platelet Estimate Normal (Normal)
[2016-11-22] MEDS: Vancomycin 1,500 MG in D5% in Water 250 ML IVPB SCH ×2 (05:27→17:45)
[2016-11-22] MEDS: *HR* Metoprolol 5 MG/5 ML VIAL IVP SCH ×5 (05:27→23:59)
[2016-11-22] MEDS: Budesonide/Formoterol 160/4.5 MDI IH SCH ×2 (07:52→21:24)
[2016-11-22] MEDS: Piperacillin/Tazobactam 3.375 GM in D5% in Water (Mini-Bag+) 100 ML IVPB SCH ×2 (08:35→17:45)
[2016-11-22] MEDS: D5% in Lactated Ringers 1,000 ML IVC SCH (08:36)
[2016-11-22] MEDS: Chloraseptic Spray 177 ML BOTTLE MM PRN (11:54)
[2016-11-22] MEDS: *HR* Morphine 2 MG/ML SYRINGE IVP PRN ×2 (11:54→17:46)
[2016-11-22] MEDS ORDERED: *HR* HYDROmorphone (PF) 1 MG/ML SYRINGE IVP PRN (12:21)
[2016-11-22] MEDS ORDERED: *HR* LORazepam 2 MG/ML VIAL IVP PRN (12:21)
--- NOTE | 2016-11-22 15:32 | Internal Med Progress Note ---
Date of Encounter: 11/22/16 Time of Encounter: 15:00 - Assessment and plan (1) Abdominal pain Current Visit: Yes Status: Acute Assessment and plan: POD #3. Had open cholecystectomy 11/17. 11/19: patient developed sudden onset of severe right upper quadrant/flank pain. He denies any nausea or vomiting. He ate all his regular lunch tray this day. 11/20/16: Patient had placement of NG tube for gastric distension. CT abdomen/ pelvis shows stomach is significantly dilated, PARKING INSPECTOR shunt extending from the chest into the right upper quadrant, trace fluid in the gallbladder fossa and small hematoma along liver edge findings consistent with recent open cholecystectomy, there is small amount of ascites. 11/21: Biliary leak suspected in HP scan -homogeneous uptake by the liver with normal excretion of radiotracer into the biliary system. Progressive abnormal accumulation of radiotracer in the right upper quadrant is noted with later images showing extension of the tracer into the right paracolic gutter. The abnormal accumulation of radiotracer in the right upper quadrant may be subcapsular. 11/22: Appreciate surgery service input. Bilirrubin trending up to 2.9 from 2.4 yesterday. temp at 99.8. continue Zosyn, IVF and NGT. Check KUB to assess gastric distension. close monitoring. Qualifiers: Abdominal location: generalized Qualified Code(s): R10.84 - Generalized abdominal pain (2) Acute respiratory failure with hypoxemia Current Visit: Yes Status: Acute Assessment and plan: secondary to aspiration PNA, pulmonary edema, atelectasis from poor inspiration due to abdominal distension and pain in the setting of emphysema/COPD. Pt had pneumina a few months ago and was sent home on oxygen but PCP stop oxygen 1 month ago. CTA chest showed moderate centrilobular emphysematous changes, mild atelectasis bilaterally, no consolidation. 11/20: pt had fever and chest x ray shows pleural effusion and bilateral airspace disease. Continue IV Zosyn and IV Vancomcycin (start date 11/20). continue oxygen and nebs. Patient is requiring 4L of oxygen via NC to maintain SaO2 93%. (3) Pneumonia Current Visit: Yes Status: Acute Assessment and plan: bacterial pneumonia, likely aspiration secondary to gastric dilation. plan as above. empiric antibiotics. Qualifiers: Pneumonia type: aspiration pneumonia Aspiration pneumonia type: due to gastric secretions Laterality: bilateral Lung location: lower lobe of lung Qualified Code(s): J69.0 - Pneumonitis due to inhalation of food and vomit (4) Fluid overload Current Visit: Yes Status: Acute Assessment and plan: Secondary to IV fluid hydration (LE edema and pulmonary edema on 11/18/16). 11/18/16: Chest x-ray showed diffuse pulmonary vascular congestion. 11/19: Echocardiogram revealed LVEF 65%. 11/20 resolved. stop IV lasix. Qualifiers: Hypervolemia type: unspecified Qualified Code(s): E87.70 - Fluid overload, unspecified (5) Nausea and vomiting Current Visit: Yes Status: Acute Assessment and plan: resolved. due to pulmonary edema. Qualifiers: Vomiting type: unspecified Vomiting Intractability: non-intractable Qualified Code(s): R11.2 - Nausea with vomiting, unspecified (6) Pancreatitis, acute Current Visit: Yes Status: Acute Assessment and plan: resolved. unclear etiology. triglycerides at 61. no alcohol use. Patient presented with diffuse abdominal pain, lipase more than [address] abdomen/pelvis findings compatible with acute pancreatitis. Patient not candidate for MRCP due to h/o shunt in the brain, no records could be obtained form [place] as it was too long ago. CT abdomen/pelvis shows sludge in gallbladder, mild pericholecystic stranding and fluid, stranding a small volume of fluid around the head of the pancreas. us abdomen shows liver steatosis, gallbladder sludge, mild perihepatic ascites. EGD was normal. Qualifiers: Pancreatitis type: unspecified pancreatitis type Acute pancreatitis complication: unspecified Qualified Code(s): K85.90 - Acute pancreatitis without necrosis or infection, unspecified (7) A-fib Current Visit: Yes Status: Chronic Assessment and plan: rate is stable. holding Eliquis for surgery. continue digoxin and metoprolol. Qualifiers: Atrial fibrillation type: paroxysmal Qualified Code(s): I48.0 - Paroxysmal atrial fibrillation (8) COPD (chronic obstructive pulmonary disease) Current Visit: Yes Status: Chronic Assessment and plan: continue symbicort, mucinex and nebs. Qualifiers: COPD type: unspecified COPD Qualified Code(s): J44.9 - Chronic obstructive pulmonary disease, unspecified (9) HTN (hypertension) Current Visit: Yes Status: Chronic Assessment and plan: stable. Qualifiers: Hypertension type: essential hypertension Qualified Code(s): I10 - Essential (primary) hypertension (10) Microcytic anemia Current Visit: Yes Status: Chronic Assessment and plan: has h/o long standing anemia possible 2/2 thalassemia. Ferritin level high. low iron and TSAT as noted in the iron panel. EGD did not show any active bleeding, but colonoscopy has a small ulcer in the cecum, non bleeding, that has been biopsied. Pathology reports diffusely ulcerated colonic mucosa with acute inflammation and granulation tissue with reactive changes. Negative for adenocarcinoma. hgb 9. Patient is hemodynamically stable. no external bleeding. - Subjective Interval history: NGT placed for gastric distension- 875 ml of dark greenish color fluid since this morning. Right upper abdomen and flank pain is better compared to yesterday , he is sitting up in the chair. He was not able to sleep overnight again despite receiving dilaudid. - Constitutional Vitals: Temp Pulse Resp BP Pulse Ox 99.6 F 94 16 112/71 95 11/22/16 15:06 11/22/16 15:06 11/22/16 15:06 11/22/16 15:06 11/22/16 15:06 General appearance: Present: cooperative, A&O X 3, pleasant, no acute distress, answers questions appropriately - Eye Eye exam: Present: PERRL, scleral icterus - ENT ENT exam: Present: mucous membranes moist - Neck Neck exam general surgery: Present: supple, trachea midline. Absent: lymphadenopathy - Respiratory Respiratory exam: Present: decreased breath sounds (at bases). Absent: rales, wheezes - Cardiovascular Cardiovascular exam: Present: tachycardia - GI/Abdominal GI/Abdominal exam: Present: soft, tenderness (Right upper abdomen tenderness). Absent: distended - Extremities Exam Extremities exam: Absent: pedal edema - Back Exam Back exam: Absent: CVA tenderness (L), CVA tenderness (R) - Neurological Exam Neurological exam: Present: alert, oriented X3, no focal deficits, strengths equal and symetr throughout. Absent: facial droop, speech deficit - Skin Skin exam: Absent: rash Internal Medicine: Result - Labs CBC & Chem 7: 11/22/16 03:58 11/22/16 03:58 Labs: Short CBC 11/22/16 Range/Units 03:58 WBC 8.0 (4.3-11.1) K/mcL Hgb 8.8 L (12.9-16.9) g/dL Hct 28.4 L (37.5-50.1) % Plt Count 219 (140-400) K/mcL Neutrophils # 6.0 (1.6-8.9) K/mcL BMP 11/22/16 03:58 Sodium 138 Potassium 3.2 L Chloride 99 Carbon Dioxide 32 H BUN 7 L Creatinine 0.68 L Glucose 113 H Calcium 7.9 L Liver Function 11/22/16 Range/Units 03:58 Total Bilirubin 2.9 H (0.2-1.2) mg/dL AST 14 (5-34) Units/L ALT 14 (0-55) Units/L Alkaline Phosphatase 152 H (38-126) Units/L - ABG Interpretation ABG results: PT/INR, D-dimer PT 15.9 Seconds (9.4-12.1) H 11/20/16 15:54 - Impressions Impressions KUB X-Ray 11/22/16 10:35 IMPRESSION: Resolved gastric distention following enteric tube placement, with the tip in the region of the mid to distal gastric body. D/ / Marcelino Osullivan MD / Marcelino Osullivan MD Interpreting Provider: Marcelino Osullivan MD - VTE Documentation of Mechanical Device: Intermittent pneumatic compression device Consult Discharge Plan - Plan Referrals: Rakan Tobias MD [Non-Partnered Physician] -
--- NOTE | 2016-11-22 16:34 | General Surgery Progress Note ---
Date of Encounter: 11/22/16 Time of Encounter: 13:50 Subjective Patient reports: feels better, still having pain Narrative: General Surgery - postoperative day 5: Maximum temperature 99.6; pulse 94-100; respirations 16, blood pressure 112/71 Patient still complaining of pain but to my examination this pain was localized to the incisions (subcostal and infraumbilical) Lungs: Clear to auscultation Abdomen: Soft with cindy-incisional tenderness as described above; no obvious tenderness away from the incisions. No peritoneal signs. Hypoactive bowel sounds KUB was personally reviewed, showed resolved gastric distention. Oral contrast from prior CT in the proximal colon. Bowel pattern was unremarkable. NG output: Approximately 850 mL. Labs: White count 8.0; hemoglobin 8.8, hematocrit 28.4; platelet count 219,000. Sodium 138, potassium 3.2, BUN 7, creatinine 0.68. Total bilirubin 2.9 (increased) alkaline phosphatase 152. Pathology: Chronic cholecystitis, cholelithiasis Impression: Postoperative day 5 - status post laparoscopy, open cholecystectomy. Postoperative bile leak with hyperbilirubinemia; it appears to have stabilized as there are no peritoneal signs. Continue to monitor Bili and alk phos Anorexia - likely due to gastric distention which has been treated with nasogastric decompression. The gastric distention is resolved; NG removed we will trial diet (full liquids) Hypokalemia - potassium supplements have been ordered Paroxysmal atrial fibrillation - rate was slightly irregular today - continue to monitor COPD, asthma, hypertension, hyperlipidemia Thalassemia History of prostate and bladder cancer. Objective Vital Signs - Last 8 Hours Temp Pulse Resp BP Pulse Ox 11/22/16 15:06 99.6 F 94 16 112/71 95 11/22/16 11:08 98.2 F 100 16 124/97 97 Intake and Output 11/22/16 11/22/16 11/22/16 07:59 15:59 23:59 Intake Total 100 / 100 1300 / 1300 Output Total 475 / 475 1025 / 1025 Balance -375 / -375 275 / 275 Intake: IV Fluids 100 / 100 1300 / 1300 D5% & Lact. Ringers 1000 1000 / 1000 Ml Bag 1,000 ML @ 60 mls/ hr IVC .[id number] [facility] Rx#: [id number] Ofirmev 500 mg In 50 ml @ 50 / 50 200 mls/hr IVPB ONCE ONE Rx#:[id number] Zosyn 3.375 GM In 100 / 100 Dextrose 5% (Minibag+) 100 ML 100 ML @ 25 mls/hr IVPB Q8HR [facility] Rx#: [id number] Vancocin 1,500 MG In 250 / 250 Dextrose 5% 250 ML @ 166. 67 mls/hr IVPB Q12H [facility] Rx#:[id number] Oral 0 / 0 0 / 0 Output: Urine 0 / 0 150 / 150 Gastric Tube Lavage 475 / 475 Amount Left Nare 475 / 475 Gastric Drainage 875 / 875 Other: Weight 85.8 kg 84.1 kg Blood Glucose* 112 105 Patient Weight 11/22/16 23:59 Weight 84.1 kg - Labs 11/22/16 03:58 11/22/16 03:58 Diabetes panel 11/22/16 Range/Units 03:58 Sodium 138 (136-145) mEq/L Potassium 3.2 L (3.5-4.5) mEq/L Chloride 99 (98-109) mEq/L Carbon Dioxide 32 H (19-29) mEq/L BUN 7 L (8-26) mg/dL Creatinine 0.68 L (0.72-1.25) mg/dL Glucose 113 H (70-99) mg/dL Calcium 7.9 L (8.6-10.8) mg/dL AST 14 (5-34) Units/L ALT 14 (0-55) Units/L Alkaline Phosphatase 152 H (38-126) Units/L Calcium panel 11/22/16 Range/Units 03:58 Calcium 7.9 L (8.6-10.8) mg/dL Pituitary panel 11/22/16 Range/Units 03:58 Sodium 138 (136-145) mEq/L Potassium 3.2 L (3.5-4.5) mEq/L Chloride 99 (98-109) mEq/L Carbon Dioxide 32 H (19-29) mEq/L BUN 7 L (8-26) mg/dL Creatinine 0.68 L (0.72-1.25) mg/dL Glucose 113 H (70-99) mg/dL Calcium 7.9 L (8.6-10.8) mg/dL Adrenal panel 11/22/16 Range/Units 03:58 Sodium 138 (136-145) mEq/L Potassium 3.2 L (3.5-4.5) mEq/L Chloride 99 (98-109) mEq/L Carbon Dioxide 32 H (19-29) mEq/L BUN 7 L (8-26) mg/dL Creatinine 0.68 L (0.72-1.25) mg/dL Glucose 113 H (70-99) mg/dL Calcium 7.9 L (8.6-10.8) mg/dL Total Bilirubin 2.9 H (0.2-1.2) mg/dL AST 14 (5-34) Units/L ALT 14 (0-55) Units/L Alkaline Phosphatase 152 H (38-126) Units/L - VTE Documentation of Mechanical Device: Intermittent pneumatic compression device Consult Discharge Plan - Plan Referrals: Rakan Tobias MD [Non-Partnered Physician] -
[2016-11-22] MEDS: Ondansetron 4 MG/2 ML VIAL IVP PRN (20:59)
[2016-11-23] MEDS: Piperacillin/Tazobactam 3.375 GM in D5% in Water (Mini-Bag+) 100 ML IVPB SCH ×3 (00:03→16:28)
[2016-11-23] MEDS: Ipratropium/Albuterol Neb 3 ML IH SCH ×6 (03:51→23:58)
[2016-11-23 05:20] LABS: Basophils # 0.1 K/mcL (0.0-0.2); Basophils % 0.7 %; Eosinophils # 0.3 K/mcL (0.0-0.6); Eosinophils % 4.6 %; Hematocrit 26.7 % (37.5-50.1); Hemoglobin 8.5 g/dL (12.9-16.9); Immature Granulocytes % 0.9 % (0-4); Lymphocytes # 1.2 K/mcL (0.6-4.6); Lymphocytes % 15.9 %; Mean Corpuscular HGB Conc 31.8 g/dL (31.6-35.5); Mean Corpuscular Hemoglobin 20.1 pg (28.0-33.3); Mean Corpuscular Volume 63.3 fL (83.0-100.0); Monocytes # 0.8 K/mcL (0.0-1.3); Monocytes % 10.9 %; Platelet Count 226 K/mcL (140-400); Red Blood Count 4.22 M/mcL (4.19-5.50); Red Cell Distribution Width 16.4 % (11.5-14.5)
[2016-11-23 05:37] LABS: BUN/Creatinine Ratio 9 (6-26); Blood Urea Nitrogen 7 mg/dL (8-26); Calcium 7.9 mg/dL (8.6-10.8); Carbon Dioxide 31 mEq/L (19-29); Chloride 98 mEq/L (98-109); Glucose 98 mg/dL (70-99); Osmolality,Calculated 282 (280-300); Potassium 3.2 mEq/L (3.5-4.5); Sodium 137 mEq/L (136-145); eGFR For African Americans > 60 (> 60); eGFR For Non-African Americans > 60 (> 60)
[2016-11-23] MEDS: *HR* Metoprolol 5 MG/5 ML VIAL IVP SCH ×2 (05:42→11:24)
[2016-11-23] MEDS: Vancomycin 1,500 MG in D5% in Water 250 ML IVPB SCH (05:43)
[2016-11-23 05:47] LABS: Magnesium 1.9 mg/dL (1.6-2.6); Phosphorous 2.8 mg/dL (2.3-4.7)
[2016-11-23 05:49] LABS: Bilirubin,Total 2.5 mg/dL (0.2-1.2)
[2016-11-23 05:51] LABS: Anisocytosis 1+ (Not Present); Hypochromasia Present (Not Present)
[2016-11-23 05:52] LABS: Microcytosis Present (Not Present); Platelet Estimate Normal (Normal); Polychromasia 1+ (Not Present); Target Cells 1+ (Not Present)
[2016-11-23] MEDS: *HR* Morphine 2 MG/ML SYRINGE IVP PRN ×5 (06:33→22:01)
[2016-11-23] MEDS: Budesonide/Formoterol 160/4.5 MDI IH SCH ×2 (07:48→20:02)
[2016-11-23] MEDS ORDERED: D5% in Water (Mini-Bag+) 100 ML IVPB ONE (08:14)
[2016-11-23] MEDS: Acetaminophen 325 MG TABLET PO PRN (08:31)
[2016-11-23] MEDS ORDERED: Aminoglycoside Consult 1 EACH MC ONE (09:33)
[2016-11-23] MEDS ORDERED: Potassium Chloride Elixir 20 MEQ/15 ML UDC PO ONE (10:52)
--- NOTE | 2016-11-23 13:36 | General Surgery Progress Note ---
Date of Encounter: 11/23/16 Time of Encounter: 13:26 Subjective Narrative: Postoperative day 6: Patient's daughters describe multiple complaints this morning, including restlessness, right sided chest pain and shoulder pain. Some nodularity on the posterior lateral chest was also described but not evident on my examination. Despite these complaints, the patient has remained hemodynamically stable; patient remains afebrile, pulse is 89 (maximum 96) respiratory rate 18, blood pressure 123/73. SPO2 on 3 L/m nasal cannula 90-99% Lungs: Clear to auscultation; no obvious pain on deep inspiration Chest: No palpable abnormalities, no elicited tenderness right lateral and posterior lateral chest wall Abdomen: Soft, incisional tenderness as before. No obvious progression, no peritoneal signs. CT abdomen and pelvis - personally reviewed with [facility] demonstrates no intra-or extrahepatic biliary dilatation, moderate pancreatic atrophy, increased appearing free intraperitoneal fluid predominantly in the abdomen/ perihepatic. I have discussed these findings with Dr Reeves, [facility], and have counseled him for percutaneous drain placement. Bilateral pleural effusions also noted but possibly due to presence of bile in the right upper quadrant ( sympathetic effusion). Laboratories: White count 7.4, hemoglobin 8.5 with hematocrit 26.7 - H&H diminished, likely due to the fluids and hydration. Platelet 226,000; differential within normal limits Electrolytes notable for persistent hypokalemia - 3.2 despite IV and oral supplementation yesterday. Will continue to provide oral potassium Bilirubin slightly improved, 2.5; alkaline phosphatase elevated to 187. This is most likely due to the demonstrated bilaterally and accumulated bile within the peritoneal cavity. The percutaneous drainage should be helpful. Objective Vital Signs - Last 8 Hours Temp Pulse Resp BP Pulse Ox 11/23/16 11:19 97.4 F L 89 18 123/73 99 11/23/16 08:52 98.0 F 96 16 108/60 90 L Intake and Output 11/22/16 11/23/16 11/23/16 23:59 07:59 15:59 Intake Total 1550 / 1550 100 / 100 100 / 100 Output Total 475 / 475 600 / 600 200 / 200 Balance 1075 / 1075 -500 / -500 -100 / -100 Intake: IV Fluids 1550 / 1550 100 / 100 100 / 100 D5% & Lact. Ringers 1000 900 / 900 0 / 0 100 / 100 Ml Bag 1,000 ML @ 60 mls/ hr IVC .[id number] [facility] Rx#: [id number] Zosyn 3.375 GM In 200 / 200 100 / 100 Dextrose 5% (Minibag+) 100 ML 100 ML @ 25 mls/hr IVPB Q8HR [facility] Rx#: [id number] Potassium Chloride 10 mEq 200 / 200 /100mL 10 meq In 100 ml @ 100 mls/hr IVPB Q1H [facility] Rx#:[id number] Vancocin 1,500 MG In 250 / 250 Dextrose 5% 250 ML @ 166. 67 mls/hr IVPB Q12H [facility] Rx#:[id number] Oral 0 / 0 Output: Urine 475 / 475 600 / 600 200 / 200 Other: Meal Breakfast Percent of Meal Consumed 0% Weight 84 kg Patient Weight 11/23/16 23:59 Weight 84 kg - Labs 11/23/16 04:53 11/23/16 04:53 Diabetes panel 11/23/16 11/23/16 Range/Units 04:53 04:53 Sodium 137 (136-145) mEq/L Potassium 3.2 L (3.5-4.5) mEq/L Chloride 98 (98-109) mEq/L Carbon Dioxide 31 H (19-29) mEq/L BUN 7 L (8-26) mg/dL Creatinine 0.75 (0.72-1.25) mg/dL Glucose 98 (70-99) mg/dL Calcium 7.9 L (8.6-10.8) mg/dL Alkaline Phosphatase 187 H (38-126) Units/L Calcium panel 11/23/16 11/23/16 Range/Units 04:53 04:53 Calcium 7.9 L (8.6-10.8) mg/dL Phosphorus 2.8 (2.3-4.7) mg/dL Pituitary panel 11/23/16 Range/Units 04:53 Sodium 137 (136-145) mEq/L Potassium 3.2 L (3.5-4.5) mEq/L Chloride 98 (98-109) mEq/L Carbon Dioxide 31 H (19-29) mEq/L BUN 7 L (8-26) mg/dL Creatinine 0.75 (0.72-1.25) mg/dL Glucose 98 (70-99) mg/dL Calcium 7.9 L (8.6-10.8) mg/dL Adrenal panel 11/23/16 11/23/16 Range/Units 04:53 04:53 Sodium 137 (136-145) mEq/L Potassium 3.2 L (3.5-4.5) mEq/L Chloride 98 (98-109) mEq/L Carbon Dioxide 31 H (19-29) mEq/L BUN 7 L (8-26) mg/dL Creatinine 0.75 (0.72-1.25) mg/dL Glucose 98 (70-99) mg/dL Calcium 7.9 L (8.6-10.8) mg/dL Total Bilirubin 2.5 H (0.2-1.2) mg/dL Alkaline Phosphatase 187 H (38-126) Units/L - VTE Documentation of Mechanical Device: Intermittent pneumatic compression device Consult Discharge Plan - Plan Referrals: Rakan Tobias MD [Non-Partnered Physician] -
--- NOTE | 2016-11-23 14:41 | IR Procedure Note ---
Date of procedure: 11/23/16 Consent Obtained: Written consent Timeout: Correct patient and procedure verified, Correct site verified, Time out performed, Skin prep completed Indications: biloma Procedure Performed: biloma drain RUQ Site/Technique: Right abdomen Results/Findings: bilious material, sent for cultures Estimated blood loss (cc): 0 Complications: None; Tolerated procedure well Post Procedure Treatment Plan: dc to floor
--- NOTE | 2016-11-23 15:16 | Internal Med Progress Note ---
Date of Encounter: 11/23/16 Time of Encounter: 11:00 - Assessment and plan (1) Abdominal pain Current Visit: Yes Status: Acute Assessment and plan: POD #3. Had open cholecystectomy 11/17. 11/19: patient developed sudden onset of severe right upper quadrant/flank pain. He denies any nausea or vomiting. He ate all his regular lunch tray this day. 11/20/16: Patient had placement of NG tube for gastric distension. Started on IV Zosyn and Vancomycin for possible aspiration PNA (febrile and requiring more oxygen). CT abdomen/pelvis shows stomach is significantly dilated, PHOTOGEOLOGIST shunt extending from the chest into the right upper quadrant, trace fluid in the gallbladder fossa and small hematoma along liver edge findings consistent with recent open cholecystectomy, there is small amount of ascites. CXR showed PNA. 11/21: Abdominal pain improved and pt afebrile. Patient continued on Biliary leak suspected in HP scan -homogeneous uptake by the liver with normal excretion of radiotracer into the biliary system. Progressive abnormal accumulation of radiotracer in the right upper quadrant is noted with later images showing extension of the tracer into the right paracolic gutter. The abnormal accumulation of radiotracer in the right upper quadrant may be subcapsular. 11/22: Bilirrubin trending up to 2.9 from 2.4 yesterday. temp at 99.8. KUB showed resolved gastric distension. NGT removed. Vancomycin stopped. Diet resumed. 11/23. Worsening of abdominal pain. CT abdomen and pelvis revealed increased amount of ascites suspected biloma. Appreciate surgery input. Patient underwent placement of biloma drainage catheter with removal of 1000 ml. continue Zosyn. Stop IV fluids. Qualifiers: Abdominal location: generalized Qualified Code(s): R10.84 - Generalized abdominal pain (2) Biloma following surgery Current Visit: Yes Status: Acute Assessment and plan: plan as above Qualifiers: Encounter type: initial encounter Qualified Code(s): T81.89XA - Other complications of procedures, not elsewhere classified, initial encounter; K66.8 - Other specified disorders of peritoneum (3) Acute respiratory failure with hypoxemia Current Visit: Yes Status: Acute Assessment and plan: secondary to aspiration PNA, pulmonary edema, atelectasis from poor inspiration due to abdominal distension and pain in the setting of emphysema/COPD. Pt had pneumina a few months ago and was sent home on oxygen but PCP stop oxygen 1 month ago. CTA chest showed moderate centrilobular emphysematous changes, mild atelectasis bilaterally, no consolidation. 11/20: pt had fever and chest x ray shows pleural effusion and bilateral airspace disease. Received Vancomycin from 11/20 to 11/22. Continue IV Zosyn (start date 11/20). continue oxygen and nebs. Patient is requiring 3L of oxygen via NC to maintain SaO2 98-99%. (4) Pneumonia Current Visit: Yes Status: Acute Assessment and plan: bacterial pneumonia, likely aspiration secondary to gastric dilation. plan as above. empiric antibiotics. Qualifiers: Pneumonia type: aspiration pneumonia Aspiration pneumonia type: due to gastric secretions Laterality: bilateral Lung location: lower lobe of lung Qualified Code(s): J69.0 - Pneumonitis due to inhalation of food and vomit (5) Fluid overload Current Visit: Yes Status: Acute Assessment and plan: Secondary to IV fluid hydration (LE edema and pulmonary edema on 11/18/16). 11/18/16: Chest x-ray showed diffuse pulmonary vascular congestion. 11/19: Echocardiogram revealed LVEF 65%. 11/20 resolved. stop IV lasix. Qualifiers: Hypervolemia type: unspecified Qualified Code(s): E87.70 - Fluid overload, unspecified (6) Nausea and vomiting Current Visit: Yes Status: Acute Assessment and plan: resolved. due to pulmonary edema. Qualifiers: Vomiting type: unspecified Vomiting Intractability: non-intractable Qualified Code(s): R11.2 - Nausea with vomiting, unspecified (7) Pancreatitis, acute Current Visit: Yes Status: Acute Assessment and plan: resolved. unclear etiology. triglycerides at 61. no alcohol use. Patient presented with diffuse abdominal pain, lipase more than [address] abdomen/pelvis findings compatible with acute pancreatitis. Patient not candidate for MRCP due to h/o shunt in the brain, no records could be obtained form [place] as it was too long ago. CT abdomen/pelvis shows sludge in gallbladder, mild pericholecystic stranding and fluid, stranding a small volume of fluid around the head of the pancreas. us abdomen shows liver steatosis, gallbladder sludge, mild perihepatic ascites. EGD was normal. Qualifiers: Pancreatitis type: unspecified pancreatitis type Acute pancreatitis complication: unspecified Qualified Code(s): K85.90 - Acute pancreatitis without necrosis or infection, unspecified (8) A-fib Current Visit: Yes Status: Chronic Assessment and plan: rate is stable. holding Eliquis for surgery. continue digoxin and metoprolol. Qualifiers: Atrial fibrillation type: paroxysmal Qualified Code(s): I48.0 - Paroxysmal atrial fibrillation (9) COPD (chronic obstructive pulmonary disease) Current Visit: Yes Status: Chronic Assessment and plan: continue symbicort, mucinex and nebs. Qualifiers: COPD type: unspecified COPD Qualified Code(s): J44.9 - Chronic obstructive pulmonary disease, unspecified (10) HTN (hypertension) Current Visit: Yes Status: Chronic Assessment and plan: stable. Qualifiers: Hypertension type: essential hypertension Qualified Code(s): I10 - Essential (primary) hypertension (11) Microcytic anemia Current Visit: Yes Status: Chronic Assessment and plan: has h/o long standing anemia possible 2/2 thalassemia. Ferritin level high. low iron and TSAT as noted in the iron panel. EGD did not show any active bleeding, but colonoscopy has a small ulcer in the cecum, non bleeding, that has been biopsied. Pathology reports diffusely ulcerated colonic mucosa with acute inflammation and granulation tissue with reactive changes. Negative for adenocarcinoma. hgb 9. Patient is hemodynamically stable. no external bleeding. - Subjective Interval history: Patient reports worsening of right flank pain. NGT removed yesterday afternoon and pt had dinner. No nausea. No vomiting. - Constitutional Vitals: Temp Pulse Resp BP Pulse Ox 97.4 F L 89 18 123/73 99 11/23/16 11:19 11/23/16 11:19 11/23/16 11:19 11/23/16 11:19 11/23/16 11:19 General appearance: Present: cooperative, A&O X 3, pleasant, no acute distress, answers questions appropriately - Eye Eye exam: Present: PERRL, sclera anicteric - Neck Neck exam general surgery: Present: supple, trachea midline. Absent: lymphadenopathy - Respiratory Respiratory exam: Present: decreased breath sounds (at lower lung bases) - Cardiovascular Cardiovascular exam: Present: RRR - GI/Abdominal GI/Abdominal exam: Present: normal bowel sounds, soft, tenderness (Right flank and ). Absent: distended - Extremities Exam Extremities exam: Absent: pedal edema - Back Exam Back exam: Absent: CVA tenderness (L), CVA tenderness (R) - Neurological Exam Neurological exam: Present: alert, oriented X3. Absent: facial droop, speech deficit Internal Medicine: Result - Labs CBC & Chem 7: 11/23/16 04:53 11/23/16 04:53 Labs: Short CBC 11/23/16 Range/Units 04:53 WBC 7.4 (4.3-11.1) K/mcL Hgb 8.5 L (12.9-16.9) g/dL Hct 26.7 L (37.5-50.1) % Plt Count 226 (140-400) K/mcL Neutrophils # 5.0 (1.6-8.9) K/mcL BMP 11/23/16 04:53 Sodium 137 Potassium 3.2 L Chloride 98 Carbon Dioxide 31 H BUN 7 L Creatinine 0.75 Glucose 98 Calcium 7.9 L Liver Function 11/23/16 Range/Units 04:53 Total Bilirubin 2.5 H (0.2-1.2) mg/dL Alkaline Phosphatase 187 H (38-126) Units/L - ABG Interpretation ABG results: PT/INR, D-dimer PT 15.9 Seconds (9.4-12.1) H 11/20/16 15:54 - Impressions Impressions Cholangiogram 11/23/16 00:00 IMPRESSION: Successful ultrasound guided placement of biloma drainage catheter. D/ / Jennifer Reeves MD / Jennifer Reeves MD Interpreting Provider: Jennifer Reeves MD Guidance Needle Placement Ultrasound 11/23/16 00:00 IMPRESSION: Successful ultrasound guided placement of biloma drainage catheter. D/ / Jennifer Reeves MD / Jennifer Reeves MD Interpreting Provider: Jennifer Reeves MD Abdomen/Pelvis CT 11/23/16 11:14 IMPRESSION: 1. Increased trace to small ascites predominately in the abdomen. While possibly reactive or postoperative, bile leak is considered more likely given the findings of the recent hepatobiliary scan. 2. Trace to small bilateral pleural effusions and interstitial pulmonary edema, suggesting congestive heart failure. D/ / Adrien Nathan MD / Adrien Nathan MD Interpreting Provider: Adrien Nathan MD - VTE Documentation of Mechanical Device: Intermittent pneumatic compression device Consult Discharge Plan - Plan Referrals: Rakan Tobias MD [Non-Partnered Physician] -
[2016-11-23] MEDS ORDERED: Mag Hydrox/Al Hydrox/Simeth 30 ML UDC PO PRN (18:06)
[2016-11-23] MEDS: Pantoprazole 40 MG VIAL IVP SCH (18:30)
[2016-11-23] MEDS: Gabapentin 100 MG CAPSULE PO SCH (22:00)
[2016-11-24] MEDS: *HR* Morphine 2 MG/ML SYRINGE IVP PRN ×6 (00:07→23:10)
[2016-11-24] MEDS: Piperacillin/Tazobactam 3.375 GM in D5% in Water (Mini-Bag+) 100 ML IVPB SCH ×4 (00:10→23:11)
[2016-11-24] MEDS: Acetaminophen 325 MG TABLET PO PRN (04:26)
[2016-11-24] MEDS: Ipratropium/Albuterol Neb 3 ML IH SCH ×6 (04:41→23:21)
[2016-11-24 04:47] LABS: BUN/Creatinine Ratio 7 (6-26); Blood Urea Nitrogen 6 mg/dL (8-26); Calcium 8.4 mg/dL (8.6-10.8); Carbon Dioxide 30 mEq/L (19-29); Chloride 103 mEq/L (98-109); Glucose 95 mg/dL (70-99); Osmolality,Calculated 287 (280-300); Potassium 3.6 mEq/L (3.5-4.5); Sodium 140 mEq/L (136-145); eGFR For African Americans > 60 (> 60); eGFR For Non-African Americans > 60 (> 60)
[2016-11-24 04:48] LABS: Albumin 2.2 g/dL (3.5-5.0); Albumin/Globulin Ratio 0.8 (1.1-2.2); Bilirubin,Direct 1.4 mg/dL (0.0-0.5); Bilirubin,Indirect 0.8 mg/dL (0.0-1.2); Bilirubin,Total 2.2 mg/dL (0.2-1.2); Globulin 2.8 g/dL (2.4-3.5); Magnesium 1.9 mg/dL (1.6-2.6)
[2016-11-24 05:24] LABS: Basophils # 0.1 K/mcL (0.0-0.2); Basophils % 0.8 %; Eosinophils # 0.3 K/mcL (0.0-0.6); Eosinophils % 4.8 %; Hematocrit 28.5 % (37.5-50.1); Hemoglobin 8.9 g/dL (12.9-16.9); Immature Granulocytes % 0.6 % (0-4); Lymphocytes # 0.8 K/mcL (0.6-4.6); Lymphocytes % 12.2 %; Mean Corpuscular HGB Conc 31.2 g/dL (31.6-35.5); Mean Corpuscular Volume 63.9 fL (83.0-100.0); Mean Platelet Volume 10.4 fL (9.4-12.4); Monocytes # 0.7 K/mcL (0.0-1.3); Monocytes % 10.8 %; Neutrophils # 4.5 K/mcL (1.6-8.9); Platelet Count 285 K/mcL (140-400); Red Blood Count 4.46 M/mcL (4.19-5.50); Red Cell Distribution Width 16.4 % (11.5-14.5); Segmented Neutrophils % 70.8 %
[2016-11-24 05:56] LABS: Anisocytosis 1+ (Not Present); Hypochromasia Present (Not Present); Microcytosis Present (Not Present)
[2016-11-24 05:57] LABS: Platelet Estimate Normal (Normal); Poikilocytosis 1+ (Not Present); Polychromasia 1+ (Not Present); Target Cells 1+ (Not Present); Tear Drop Cells 1+ (Not Present)
[2016-11-24] MEDS: Budesonide/Formoterol 160/4.5 MDI IH SCH ×2 (07:34→20:52)
--- NOTE | 2016-11-24 09:44 | Internal Med Progress Note ---
Date of Encounter: 11/24/16 Time of Encounter: 09:00 - Assessment and plan (1) Abdominal pain Current Visit: Yes Status: Acute Assessment and plan: POD #3. Had open cholecystectomy 11/17. 11/19: patient developed sudden onset of severe right upper quadrant/flank pain. He denies any nausea or vomiting. He ate all his regular lunch tray this day. 11/20/16: Patient had placement of NG tube for gastric distension. Started on IV Zosyn and Vancomycin for possible aspiration PNA (febrile and requiring more oxygen). 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 CXR showed PNA. 11/21: Abdominal pain improved and pt afebrile. Patient continued on Biliary leak suspected in HP scan -homogeneous uptake by the liver with normal excretion of radiotracer into the biliary system. Progressive abnormal accumulation of radiotracer in the right upper quadrant is noted with later images showing extension of the tracer into the right paracolic gutter. The abnormal accumulation of radiotracer in the right upper quadrant may be subcapsular. 11/22: Bilirrubin trending up to 2.9 from 2.4 yesterday. temp at 99.8. KUB showed resolved gastric distension. NGT removed. Vancomycin stopped. Diet resumed. 11/23: Patient underwent percutaneous placement of RUQ drain catheter with drainage of bilious fluid. CT abdomen and pelvis revealed increased amount of ascites suspected biloma. 11/24: Appreciate surgery input. RUQ drain catheter in place. Patient's abdominal pain is improving. bilirrubin is trending down slowly. continue IV Zosyn. Qualifiers: Abdominal location: generalized Qualified Code(s): R10.84 - Generalized abdominal pain (2) Biloma following surgery Current Visit: Yes Status: Acute Assessment and plan: plan as above Qualifiers: Encounter type: initial encounter Qualified Code(s): T81.89XA - Other complications of procedures, not elsewhere classified, initial encounter; K66.8 - Other specified disorders of peritoneum (3) Acute respiratory failure with hypoxemia Current Visit: Yes Status: Acute Assessment and plan: secondary to aspiration PNA, pulmonary edema, atelectasis from poor inspiration due to abdominal distension and pain in the setting of emphysema/COPD. Pt had pneumina a few months ago and was sent home on oxygen but PCP stop oxygen 1 month ago. CTA chest showed moderate centrilobular emphysematous changes, mild atelectasis bilaterally, no consolidation. 11/20: pt had fever and chest x ray shows pleural effusion and bilateral airspace disease. Received Vancomycin from 11/20 to 11/22. Slowly improving. Now, he is tolerating well 2L NC. Continue IV Zosyn (start date 11/20). Continue oxygen and nebs. (4) Pneumonia Current Visit: Yes Status: Acute Assessment and plan: bacterial pneumonia, likely aspiration secondary to gastric dilation. plan as above. Qualifiers: Pneumonia type: aspiration pneumonia Aspiration pneumonia type: due to gastric secretions Laterality: bilateral Lung location: lower lobe of lung Qualified Code(s): J69.0 - Pneumonitis due to inhalation of food and vomit (5) Fluid overload Current Visit: Yes Status: Acute Assessment and plan: Secondary to IV fluid hydration (LE edema and pulmonary edema on 11/18/16). 11/18/16: Chest x-ray showed diffuse pulmonary vascular congestion. 11/19: Echocardiogram revealed LVEF 65%. 11/20 resolved. IV lasix stopped Qualifiers: Hypervolemia type: unspecified Qualified Code(s): E87.70 - Fluid overload, unspecified (6) Nausea and vomiting Current Visit: Yes Status: Acute Assessment and plan: resolved. due to pulmonary edema. Qualifiers: Vomiting type: unspecified Vomiting Intractability: non-intractable Qualified Code(s): R11.2 - Nausea with vomiting, unspecified (7) Pancreatitis, acute Current Visit: Yes Status: Acute Assessment and plan: resolved. unclear etiology. triglycerides at 61. no alcohol use. Patient presented with diffuse abdominal pain, lipase more than [address] abdomen/pelvis findings compatible with acute pancreatitis. Patient not candidate for MRCP due to h/o shunt in the brain, no records could be obtained form [facility] as it was too long ago. CT abdomen/pelvis shows sludge in gallbladder, mild pericholecystic stranding and fluid, stranding a small volume of fluid around the head of the pancreas. us abdomen shows liver steatosis, gallbladder sludge, mild perihepatic ascites. EGD was normal. Qualifiers: Pancreatitis type: unspecified pancreatitis type Acute pancreatitis complication: unspecified Qualified Code(s): K85.90 - Acute pancreatitis without necrosis or infection, unspecified (8) A-fib Current Visit: Yes Status: Chronic Assessment and plan: rate is stable. holding Eliquis for surgery. continue digoxin and metoprolol. Qualifiers: Atrial fibrillation type: paroxysmal Qualified Code(s): I48.0 - Paroxysmal atrial fibrillation (9) COPD (chronic obstructive pulmonary disease) Current Visit: Yes Status: Chronic Assessment and plan: continue symbicort, mucinex and nebs. Qualifiers: COPD type: unspecified COPD Qualified Code(s): J44.9 - Chronic obstructive pulmonary disease, unspecified (10) HTN (hypertension) Current Visit: Yes Status: Chronic Assessment and plan: stable. Qualifiers: Hypertension type: essential hypertension Qualified Code(s): I10 - Essential (primary) hypertension (11) Microcytic anemia Current Visit: Yes Status: Chronic Assessment and plan: has h/o long standing anemia possible 2/2 thalassemia. Ferritin level high. low iron and TSAT as noted in the iron panel. EGD did not show any active bleeding, but colonoscopy has a small ulcer in the cecum, non bleeding, that has been biopsied. Pathology reports diffusely ulcerated colonic mucosa with acute inflammation and granulation tissue with reactive changes. Negative for adenocarcinoma. hgb 9. Patient is hemodynamically stable. no external bleeding. (12) Constipation Current Visit: Yes Status: Acute Assessment and plan: laxatives Qualifiers: Constipation type: unspecified constipation type Qualified Code(s): K59.00 - Constipation, unspecified - Subjective Interval history: Patient ate half of his breakfast this morning. He still complains of right upper abdominal pain but is improved compared to yesterday. - Constitutional Vitals: Temp Pulse Resp BP Pulse Ox 97.8 F 64 18 115/68 94 L 11/24/16 06:52 11/24/16 06:52 11/24/16 07:35 11/24/16 06:52 11/24/16 07:35 General appearance: Present: cooperative, A&O X 3, pleasant, no acute distress, answers questions appropriately - Eye Eye exam: Present: PERRL, scleral icterus - Neck Neck exam general surgery: Present: supple, trachea midline. Absent: lymphadenopathy - Respiratory Respiratory exam: Present: CTAB - Cardiovascular Cardiovascular exam: Present: RRR - GI/Abdominal GI/Abdominal exam: Present: normal bowel sounds, soft, tenderness (flank and RUQ pain). Absent: distended Additional comments: surgical wounds are intact. there is a Pigtail catheter at right upper quadrant area with bilious fluid in bag. - Extremities Exam Extremities exam: Present: pedal edema - Back Exam Back exam: Present: CVA tenderness (R). Absent: CVA tenderness (L) - Neurological Exam Neurological exam: Present: alert, no focal deficits, strengths equal and symetr throughout. Absent: facial droop, speech deficit - Skin Skin exam: Absent: rash Internal Medicine: Result - Labs CBC & Chem 7: 11/24/16 04:01 11/24/16 04:01 Labs: Short CBC 11/24/16 Range/Units 04:01 WBC 6.4 (4.3-11.1) K/mcL Hgb 8.9 L (12.9-16.9) g/dL Hct 28.5 L (37.5-50.1) % Plt Count 285 (140-400) K/mcL Neutrophils # 4.5 (1.6-8.9) K/mcL BMP 11/24/16 04:01 Sodium 140 Potassium 3.6 Chloride 103 Carbon Dioxide 30 H BUN 6 L Creatinine 0.81 Glucose 95 Calcium 8.4 L Liver Function 11/24/16 Range/Units 04:01 Total Bilirubin 2.2 H (0.2-1.2) mg/dL Direct Bilirubin 1.4 H (0.0-0.5) mg/dL AST 14 (5-34) Units/L ALT 14 (0-55) Units/L Alkaline Phosphatase 218 H (38-126) Units/L Albumin 2.2 L (3.5-5.0) g/dL - ABG Interpretation ABG results: PT/INR, D-dimer PT 15.9 Seconds (9.4-12.1) H 11/20/16 15:54 - Impressions Impressions Cholangiogram 11/23/16 00:00 IMPRESSION: Successful ultrasound guided placement of biloma drainage catheter. D/ : / 11/23/2016 15:04:33 Jennifer Reeves MD / [email or web address] Interpreting Provider: Jennifer Reeves MD Guidance Needle Placement Ultrasound 11/23/16 00:00 IMPRESSION: Successful ultrasound guided placement of biloma drainage catheter. D/ / 11/23/2016 15:04:33 Jennifer Reeves MD / ken Interpreting Provider: Jennifer Reeves MD Abdomen/Pelvis CT 11/23/16 11:14 IMPRESSION: 1. Increased trace to small ascites predominately in the abdomen. While possibly reactive or postoperative, bile leak is considered more likely given the findings of the recent hepatobiliary scan. 2. Trace to small bilateral pleural effusions and interstitial pulmonary edema, suggesting congestive heart failure. D/ / Adrien Nathan MD / Adrien Nathan MD Interpreting Provider: Adrien Nathan MD - VTE Documentation of Mechanical Device: Intermittent pneumatic compression device Consult Discharge Plan - Plan Referrals: Rakan Tobias MD [Non-Partnered Physician] -
[2016-11-24] MEDS: *HR* Digoxin 0.125 MG TABLET PO SCH (10:09)
[2016-11-24] MEDS: Gabapentin 100 MG CAPSULE PO SCH ×3 (10:09→20:34)
[2016-11-24] MEDS: Pantoprazole 40 MG VIAL IVP SCH (10:12)
--- NOTE | 2016-11-24 13:16 | General Surgery Progress Note ---
Date of Encounter: 11/24/16 Time of Encounter: 13:08 Subjective Patient reports: feels better, pain is less Narrative: Postoperative day 7: Patient feeling better. Patient's daughters indicate that he "had another rough night", describing restlessness and pain that was not relieved by multiple medications. Despite these described events, the patient is feeling better with less right upper quadrant pain to my examination. Afebrile, pulse 66, respirations 18, blood pressure 130/69. Lungs: Clear with better inspiratory effort; all obvious abdominal pain on deep inspiration Abdomen: Soft with minimal right upper quadrant abdominal tenderness; incisions clean and dry; active bowel sounds Percutaneously placed drain right upper quadrant has effectively removed approximately 625 mL bilious fluid since insertion Laboratories: White count 6.4, hemoglobin 8.9, hematocrit 28.5, platelet count [id number] Electrolytes, BUN/creatinine within normal limits; hypokalemia corrected to 3.6 Bilirubin 2.2; alkaline phosphatase 218 Impression: pod #7 - status post laparoscopy, open cholecystectomy - acceptable status Postoperative bile leak - controlled with percutaneously placed drain ( pigtail catheter) Hypokalemia - corrected Hyperbilirubinemia, likely due to the bile leak. Expected to improve/ resolve following percutaneous placement of the intraperitoneal drain Hypoproteinemia, hypoalbuminemia - advance diet and monitor dietary intake as patient has been anorexic to date. COPD, chronic hypoxia - history significant tobacco abuse in the remote past Thalassemia History of prostate and bladder cancer. Paroxysmal atrial fibrillation - appears to be controlled medically Objective Vital Signs - Last 8 Hours Temp Pulse Resp BP Pulse Ox 11/24/16 11:10 97.4 F L 66 18 130/69 93 L 11/24/16 07:35 18 94 L 11/24/16 06:52 97.8 F 64 16 115/68 95 Intake and Output 11/23/16 11/24/16 11/24/16 23:59 07:59 15:59 Intake Total 410 / 410 100 / 100 140 / 140 Output Total 1500 / 1500 0 / 0 175 / 175 Balance -1090 / -1090 100 / 100 -35 / -35 Intake: IV Fluids 350 / 350 100 / 100 Zosyn 3.375 GM In 100 / 100 100 / 100 Dextrose 5% (Minibag+) 100 ML 100 ML @ 25 mls/hr IVPB Q[facility] Rx#: [id number] Vancocin 1,500 MG In 250 / 250 Dextrose 5% 250 ML @ 166. 67 mls/hr IVPB Q12H [facility] Rx#:[id number] Oral 60 / 60 140 / 140 Output: Urine 1050 / 1050 0 / 0 0 / 0 Wound Drainage 450 / 450 0 / 0 175 / 175 RUQ 450 / 450 0 / 0 175 / 175 Other: Meal Breakfast Percent of Meal Consumed 25% # Bowel Movements 0 0 Weight 84.1 kg Patient Weight 11/24/16 23:59 Weight 84.1 kg - Labs 11/24/16 04:01 11/24/16 04:01 Diabetes panel 11/24/16 11/24/16 Range/Units 04:01 04:01 Sodium 140 (136-145) mEq/L Potassium 3.6 (3.5-4.5) mEq/L Chloride 103 (98-109) mEq/L Carbon Dioxide 30 H (19-29) mEq/L BUN 6 L (8-26) mg/dL Creatinine 0.81 (0.72-1.25) mg/dL Glucose 95 (70-99) mg/dL Calcium 8.4 L (8.6-10.8) mg/dL AST 14 (5-34) Units/L ALT 14 (0-55) Units/L Alkaline Phosphatase 218 H (38-126) Units/L Albumin 2.2 L (3.5-5.0) g/dL Calcium panel 11/24/16 11/24/16 Range/Units 04:01 04:01 Calcium 8.4 L (8.6-10.8) mg/dL Albumin 2.2 L (3.5-5.0) g/dL Pituitary panel 11/24/16 Range/Units 04:01 Sodium 140 (136-145) mEq/L Potassium 3.6 (3.5-4.5) mEq/L Chloride 103 (98-109) mEq/L Carbon Dioxide 30 H (19-29) mEq/L BUN 6 L (8-26) mg/dL Creatinine 0.81 (0.72-1.25) mg/dL Glucose 95 (70-99) mg/dL Calcium 8.4 L (8.6-10.8) mg/dL Adrenal panel 11/24/16 11/24/16 Range/Units 04:01 04:01 Sodium 140 (136-145) mEq/L Potassium 3.6 (3.5-4.5) mEq/L Chloride 103 (98-109) mEq/L Carbon Dioxide 30 H (19-29) mEq/L BUN 6 L (8-26) mg/dL Creatinine 0.81 (0.72-1.25) mg/dL Glucose 95 (70-99) mg/dL Calcium 8.4 L (8.6-10.8) mg/dL Total Bilirubin 2.2 H (0.2-1.2) mg/dL AST 14 (5-34) Units/L ALT 14 (0-55) Units/L Alkaline Phosphatase 218 H (38-126) Units/L Albumin 2.2 L (3.5-5.0) g/dL - VTE Documentation of Mechanical Device: Intermittent pneumatic compression device Consult Discharge Plan - Plan Referrals: Rakan Tobias MD [Non-Partnered Physician] -
[2016-11-25] MEDS: *HR* Morphine 2 MG/ML SYRINGE IVP PRN ×2 (03:27→08:03)
[2016-11-25 04:04] LABS: Basophils # 0.1 K/mcL (0.0-0.2); Basophils % 0.7 %; Eosinophils # 0.6 K/mcL (0.0-0.6); Eosinophils % 7.4 %; Hematocrit 28.8 % (37.5-50.1); Immature Granulocytes % 0.5 % (0-4); Lymphocytes % 16.6 %; Mean Corpuscular HGB Conc 31.3 g/dL (31.6-35.5); Mean Corpuscular Hemoglobin 19.7 pg (28.0-33.3); Mean Corpuscular Volume 63.2 fL (83.0-100.0); Mean Platelet Volume 9.6 fL (9.4-12.4); Monocytes # 0.8 K/mcL (0.0-1.3); Monocytes % 10.3 %; Neutrophils # 4.8 K/mcL (1.6-8.9); Platelet Count 290 K/mcL (140-400); Red Blood Count 4.56 M/mcL (4.19-5.50); Red Cell Distribution Width 16.4 % (11.5-14.5); Segmented Neutrophils % 64.5 %
[2016-11-25 04:11] LABS: Lymphocytes # 1.3 K/mcL (0.6-4.6)
[2016-11-25 04:20] LABS: BUN/Creatinine Ratio 7 (6-26); Bilirubin,Total 1.7 mg/dL (0.2-1.2); Blood Urea Nitrogen 6 mg/dL (8-26); Calcium 8.5 mg/dL (8.6-10.8); Carbon Dioxide 28 mEq/L (19-29); Chloride 104 mEq/L (98-109); Glucose 91 mg/dL (70-99); Osmolality,Calculated 283 (280-300); Potassium 4.3 mEq/L (3.5-4.5); Sodium 138 mEq/L (136-145); eGFR For African Americans > 60 (> 60); eGFR For Non-African Americans > 60 (> 60)
[2016-11-25 04:30] LABS: Poikilocytosis 1+ (Not Present); Schistocytes 1+ (Not Present)
[2016-11-25 04:31] LABS: Microcytosis Present (Not Present); Spherocytes 1+ (Not Present)
[2016-11-25 04:33] LABS: Anisocytosis 1+ (Not Present)
[2016-11-25 04:34] LABS: Platelet Estimate Normal (Normal)
[2016-11-25] MEDS: Ipratropium/Albuterol Neb 3 ML IH SCH ×6 (05:04→23:14)
[2016-11-25] MEDS: Budesonide/Formoterol 160/4.5 MDI IH SCH ×2 (07:40→19:57)
[2016-11-25] MEDS: Gabapentin 100 MG CAPSULE PO SCH (08:00)
[2016-11-25] MEDS: *HR* Digoxin 0.125 MG TABLET PO SCH (08:01)
[2016-11-25] MEDS: Piperacillin/Tazobactam 3.375 GM in D5% in Water (Mini-Bag+) 100 ML IVPB SCH ×3 (08:02→23:33)
[2016-11-25] MEDS: Pantoprazole 40 MG VIAL IVP SCH (08:03)
--- NOTE | 2016-11-25 09:26 | Internal Med Progress Note ---
Date of Encounter: 11/25/16 Time of Encounter: 09:00 - Assessment and plan (1) Abdominal pain Current Visit: Yes Status: Acute Assessment and plan: POD #3. Had open cholecystectomy 11/17. 11/19: patient developed sudden onset of severe right upper quadrant/flank pain. He denies any nausea or vomiting. He ate all his regular lunch tray this day. 11/20/16: Patient had placement of NG tube for gastric distension. Started on IV Zosyn and Vancomycin for possible aspiration PNA (febrile and requiring more oxygen). 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 CXR showed PNA. 11/21: Abdominal pain improved and pt afebrile. Patient continued on Biliary leak suspected in HP scan -homogeneous uptake by the liver with normal excretion of radiotracer into the biliary system. Progressive abnormal accumulation of radiotracer in the right upper quadrant is noted with later images showing extension of the tracer into the right paracolic gutter. The abnormal accumulation of radiotracer in the right upper quadrant may be subcapsular. 11/22: Bilirrubin trending up to 2.9 from 2.4 yesterday. temp at 99.8. KUB showed resolved gastric distension. NGT removed. Vancomycin stopped. Diet resumed. 11/23: Patient underwent percutaneous placement of RUQ drain catheter with drainage of bilious fluid. CT abdomen and pelvis revealed increased amount of ascites suspected biloma. today, abdominal pain continues to improve. bilirrubin trending down. continue IV Zosyn (start date 11/20/16). Qualifiers: Abdominal location: generalized Qualified Code(s): R10.84 - Generalized abdominal pain (2) Biloma following surgery Current Visit: Yes Status: Acute Assessment and plan: plan as above Qualifiers: Encounter type: initial encounter Qualified Code(s): T81.89XA - Other complications of procedures, not elsewhere classified, initial encounter; K66.8 - Other specified disorders of peritoneum (3) Acute respiratory failure with hypoxemia Current Visit: Yes Status: Acute Assessment and plan: Secondary to aspiration PNA, pulmonary edema, atelectasis from poor inspiration due to abdominal distension and pain in the setting of emphysema/COPD. Pt had pneumina a few months ago and was sent home on oxygen but PCP stop oxygen 1 month ago. CTA chest showed moderate centrilobular emphysematous changes, mild atelectasis bilaterally, no consolidation. 11/20: pt had fever and chest x ray shows pleural effusion and bilateral airspace disease. Received Vancomycin from 11/20 to 11/22. Improved, he is tolerating well 2L NC. Completed antibiotic therapy. Continue oxygen and nebs. (4) Pneumonia Current Visit: Yes Status: Acute Assessment and plan: bacterial pneumonia, likely aspiration secondary to gastric dilation. plan as above. Qualifiers: Pneumonia type: aspiration pneumonia Aspiration pneumonia type: due to gastric secretions Laterality: bilateral Lung location: lower lobe of lung Qualified Code(s): J69.0 - Pneumonitis due to inhalation of food and vomit (5) Fluid overload Current Visit: Yes Status: Acute Assessment and plan: Secondary to IV fluid hydration (LE edema and pulmonary edema on 11/18/16). 11/18/16: Chest x-ray showed diffuse pulmonary vascular congestion. 11/19: Echocardiogram revealed LVEF 65%. 11/20 resolved. IV lasix stopped Qualifiers: Hypervolemia type: unspecified Qualified Code(s): E87.70 - Fluid overload, unspecified (6) Nausea and vomiting Current Visit: Yes Status: Acute Assessment and plan: resolved. due to pulmonary edema. Qualifiers: Vomiting type: unspecified Vomiting Intractability: non-intractable Qualified Code(s): R11.2 - Nausea with vomiting, unspecified (7) Pancreatitis, acute Current Visit: Yes Status: Acute Assessment and plan: resolved. unclear etiology. triglycerides at 61. no alcohol use. Patient presented with diffuse abdominal pain, lipase more than [address] abdomen/pelvis findings compatible with acute pancreatitis. CT abdomen/pelvis shows sludge in gallbladder, mild pericholecystic stranding and fluid, stranding a small volume of fluid around the head of the pancreas. us abdomen shows liver steatosis, gallbladder sludge, mild perihepatic ascites. EGD was normal. Qualifiers: Pancreatitis type: unspecified pancreatitis type Acute pancreatitis complication: unspecified Qualified Code(s): K85.90 - Acute pancreatitis without necrosis or infection, unspecified (8) A-fib Current Visit: Yes Status: Chronic Assessment and plan: rate is stable. holding Eliquis due to percutaneous drain catheter continue digoxin and metoprolol. Qualifiers: Atrial fibrillation type: paroxysmal Qualified Code(s): I48.0 - Paroxysmal atrial fibrillation (9) COPD (chronic obstructive pulmonary disease) Current Visit: Yes Status: Chronic Assessment and plan: continue symbicort, mucinex and nebs. Qualifiers: COPD type: unspecified COPD Qualified Code(s): J44.9 - Chronic obstructive pulmonary disease, unspecified (10) HTN (hypertension) Current Visit: Yes Status: Chronic Assessment and plan: stable. Qualifiers: Hypertension type: essential hypertension Qualified Code(s): I10 - Essential (primary) hypertension (11) Microcytic anemia Current Visit: Yes Status: Chronic Assessment and plan: has h/o long standing anemia possible 2/2 thalassemia. Ferritin level high. low iron and TSAT as noted in the iron panel. EGD did not show any active bleeding, but colonoscopy has a small ulcer in the cecum, non bleeding, that has been biopsied. Pathology reports diffusely ulcerated colonic mucosa with acute inflammation and granulation tissue with reactive changes. Negative for adenocarcinoma. hgb 9. Patient is hemodynamically stable. no external bleeding. (12) Constipation Current Visit: Yes Status: Resolved Assessment and plan: resolved Qualifiers: Constipation type: unspecified constipation type Qualified Code(s): K59.00 - Constipation, unspecified - Subjective Interval history: RUQ drain catheter with 75 ml of bilious fluid. Had a large non-bloody bowel movement yesterday. Patient is eating more but still less than half of his trays. He has mild right upper abdominal pain that continued to improve daily. - Constitutional Vitals: Temp Pulse Resp BP Pulse Ox 97.7 F 77 16 131/74 94 L 11/25/16 03:27 11/25/16 03:27 11/25/16 07:43 11/25/16 03:27 11/25/16 07:43 General appearance: Present: cooperative, A&O X 3, pleasant, no acute distress, answers questions appropriately - Eye Eye exam: Present: PERRL, scleral icterus - Neck Neck exam general surgery: Present: supple, trachea midline. Absent: lymphadenopathy - Respiratory Respiratory exam: Present: decreased breath sounds (at left lung base) - Cardiovascular Cardiovascular exam: Present: RRR - GI/Abdominal GI/Abdominal exam: Present: normal bowel sounds, soft. Absent: distended Additional comments: surgical wound is intact. RUQ drain catheter. mild tenderness to palpation, significantly improved from a few days prior. - Extremities Exam Extremities exam: Present: pedal edema (ankle edema only) - Back Exam Back exam: Absent: CVA tenderness (L), CVA tenderness (R) - Neurological Exam Neurological exam: Present: alert, oriented X3, no focal deficits, strengths equal and symetr throughout. Absent: speech deficit - Skin Skin exam: Absent: rash Internal Medicine: Result - Labs CBC & Chem 7: 11/25/16 03:47 11/25/16 03:47 Labs: Short CBC 11/25/16 Range/Units 03:47 WBC 7.5 (4.3-11.1) K/mcL Hgb 9.0 L (12.9-16.9) g/dL Hct 28.8 L (37.5-50.1) % Plt Count 290 (140-400) K/mcL Neutrophils # 4.8 (1.6-8.9) K/mcL BMP 11/25/16 03:47 Sodium 138 Potassium 4.3 Chloride 104 Carbon Dioxide 28 BUN 6 L Creatinine 0.86 Glucose 91 Calcium 8.5 L Liver Function 11/25/16 Range/Units 03:47 Total Bilirubin 1.7 H (0.2-1.2) mg/dL Alkaline Phosphatase 224 H (38-126) Units/L - ABG Interpretation ABG results: PT/INR, D-dimer PT 15.9 Seconds (9.4-12.1) H 11/20/16 15:54 - Impressions Impressions Cholangiogram 11/23/16 00:00 IMPRESSION: Successful ultrasound guided placement of biloma drainage catheter. D/ /23/2016 15:04:33 Jennifer Reeves MD / ken Interpreting Provider: Jennifer Reeves MD Guidance Needle Placement Ultrasound 11/23/16 00:00 IMPRESSION: Successful ultrasound guided placement of biloma drainage catheter. D/ /23/2016 15:04:33 Jennifer Reeves MD / ken Interpreting Provider: Jennifer Reeves MD - VTE Documentation of Mechanical Device: Intermittent pneumatic compression device Consult Discharge Plan - Plan Referrals: Rakan Tobias MD [Non-Partnered Physician] -
--- NOTE | 2016-11-25 09:57 | General Surgery Progress Note ---
Date of Encounter: 11/25/16 Time of Encounter: 09:52 Subjective Patient reports: no new complaints, feels better Narrative: Postoperative day 8: Patient feeling much better; much more awake and alert, no longer complaining of pain. Afebrile, pulse 69, respirations 16, blood pressure 103/57. Lungs: Clear to auscultation with better inspiratory effort Abdomen: Soft, tender localized around the percutaneous drain site; subcostal incision clean and dry. Large BM in response to magnesium citrate Peritoneal drainage - 425 mL for 11/24/2016; 135 mL so far today Laboratories: White count 7.5, hemoglobin 9.0, hematocrit 28.8. Platelet count 290,000 Electrolytes, P1, creatinine within normal limits; potassium 4.3 Bilirubin 1.7, alkaline phosphatase 224 Impression: much improved following placement percutaneous peritoneal drain with evacuation intra peritoneal bile. Anemia - stable, slightly improved as patient mobilizes fluids hyperbilirubinemia improved with removal intra peritoneal bile hypokalemia - corrected. chronic hypoxia - due to long history tobacco abuse - stable Objective Vital Signs - Last 8 Hours Temp Pulse Resp BP Pulse Ox 11/25/16 08:30 97.7 F 69 16 103/57 94 L 11/25/16 07:43 16 94 L 11/25/16 03:27 97.7 F 77 16 131/74 91 L Intake and Output 11/24/16 11/25/16 11/25/16 23:59 07:59 15:59 Intake Total 100 / 100 100 / 100 Output Total 250 / 250 785 / 785 Balance -150 / -150 -685 / -685 Intake: IV Fluids 100 / 100 100 / 100 Zosyn 3.375 GM In 100 / 100 100 / 100 Dextrose 5% (Minibag+) 100 ML 100 ML @ 25 mls/hr IVPB Q8HR [facility] Rx#: [id number] Output: Urine 650 / 650 Wound Drainage 250 / 250 135 / 135 RUQ 250 / 250 135 / 135 Other: Stool Size Copious Stool Consistency loose soft Stool Color Brown # Voids 1 Weight 84.7 kg Patient Weight 11/25/16 23:59 Weight 84.7 kg - Labs 11/25/16 03:47 11/25/16 03:47 Diabetes panel 11/25/16 11/25/16 Range/Units 03:47 03:47 Sodium 138 (136-145) mEq/L Potassium 4.3 (3.5-4.5) mEq/L Chloride 104 (98-109) mEq/L Carbon Dioxide 28 (19-29) mEq/L BUN 6 L (8-26) mg/dL Creatinine 0.86 (0.72-1.25) mg/dL Glucose 91 (70-99) mg/dL Calcium 8.5 L (8.6-10.8) mg/dL Alkaline Phosphatase 224 H (38-126) Units/L Calcium panel 11/25/16 Range/Units 03:47 Calcium 8.5 L (8.6-10.8) mg/dL Pituitary panel 11/25/16 Range/Units 03:47 Sodium 138 (136-145) mEq/L Potassium 4.3 (3.5-4.5) mEq/L Chloride 104 (98-109) mEq/L Carbon Dioxide 28 (19-29) mEq/L BUN 6 L (8-26) mg/dL Creatinine 0.86 (0.72-1.25) mg/dL Glucose 91 (70-99) mg/dL Calcium 8.5 L (8.6-10.8) mg/dL Adrenal panel 11/25/16 11/25/16 Range/Units 03:47 03:47 Sodium 138 (136-145) mEq/L Potassium 4.3 (3.5-4.5) mEq/L Chloride 104 (98-109) mEq/L Carbon Dioxide 28 (19-29) mEq/L BUN 6 L (8-26) mg/dL Creatinine 0.86 (0.72-1.25) mg/dL Glucose 91 (70-99) mg/dL Calcium 8.5 L (8.6-10.8) mg/dL Total Bilirubin 1.7 H (0.2-1.2) mg/dL Alkaline Phosphatase 224 H (38-126) Units/L - VTE Documentation of Mechanical Device: Intermittent pneumatic compression device Consult Discharge Plan - Plan Referrals: Rakan Tobias MD [Non-Partnered Physician] -
[2016-11-25] MEDS: *HR* HYDROcodone/Acet 5/325 mg TABLET PO PRN ×2 (13:44→23:32)
[2016-11-25] MEDS: Gabapentin 300 MG CAPSULE PO SCH ×2 (17:06→22:06)
[2016-11-25] MEDS: Ondansetron 4 MG/2 ML VIAL IVP PRN (18:59)
[2016-11-25] MEDS: Acetaminophen 325 MG TABLET PO PRN (22:06)
[2016-11-25] MEDS: Melatonin 3 MG TABLET PO PRN (23:32)
[2016-11-26] MEDS: Ipratropium/Albuterol Neb 3 ML IH SCH ×6 (04:38→23:17)
[2016-11-26 04:51] LABS: Basophils % 0.4 %; Eosinophils # 0.6 K/mcL (0.0-0.6); Hematocrit 28.1 % (37.5-50.1); Immature Granulocytes % 0.5 % (0-4); Lymphocytes # 1.3 K/mcL (0.6-4.6); Lymphocytes % 16.4 %; Mean Corpuscular Hemoglobin 20.3 pg (28.0-33.3); Mean Corpuscular Volume 63.3 fL (83.0-100.0); Mean Platelet Volume 10.2 fL (9.4-12.4); Monocytes # 0.8 K/mcL (0.0-1.3); Monocytes % 10.1 %; Platelet Count 295 K/mcL (140-400); Red Blood Count 4.44 M/mcL (4.19-5.50); Red Cell Distribution Width 16.2 % (11.5-14.5); Segmented Neutrophils % 64.6 %
[2016-11-26 05:01] LABS: Albumin 2.3 g/dL (3.5-5.0); Albumin/Globulin Ratio 0.8 (1.1-2.2); BUN/Creatinine Ratio 8 (6-26); Bilirubin,Indirect 0.7 mg/dL (0.0-1.2); Bilirubin,Total 1.7 mg/dL (0.2-1.2); Blood Urea Nitrogen 7 mg/dL (8-26); Calcium 8.3 mg/dL (8.6-10.8); Carbon Dioxide 25 mEq/L (19-29); Chloride 105 mEq/L (98-109); Globulin 2.8 g/dL (2.4-3.5); Glucose 92 mg/dL (70-99); Osmolality,Calculated 282 (280-300); Potassium 4.5 mEq/L (3.5-4.5); Sodium 137 mEq/L (136-145); Total Protein 5.1 g/dL (6.0-8.3); eGFR For African Americans > 60 (> 60); eGFR For Non-African Americans > 60 (> 60)
[2016-11-26 05:23] LABS: Anisocytosis 1+ (Not Present); Hypochromasia Present (Not Present); Microcytosis Present (Not Present); Platelet Estimate Normal (Normal); Polychromasia 1+ (Not Present)
[2016-11-26] MEDS: *HR* HYDROcodone/Acet 5/325 mg TABLET PO PRN ×3 (05:53→21:53)
[2016-11-26] MEDS: *HR* Digoxin 0.125 MG TABLET PO SCH (07:58)
[2016-11-26] MEDS: Piperacillin/Tazobactam 3.375 GM in D5% in Water (Mini-Bag+) 100 ML IVPB SCH ×2 (07:58→15:57)
[2016-11-26] MEDS: Lactobacillus 1 EACH CAP.SPRINK PO SCH (07:59)
[2016-11-26] MEDS: Gabapentin 300 MG CAPSULE PO SCH ×3 (07:59→20:04)
[2016-11-26] MEDS: Budesonide/Formoterol 160/4.5 MDI IH SCH ×2 (08:03→20:25)
--- NOTE | 2016-11-26 09:29 | Internal Med Progress Note ---
Date of Encounter: 11/26/16 Time of Encounter: 08:30 - Assessment and plan (1) Abdominal pain Current Visit: Yes Status: Acute Assessment and plan: POD #3. Had open cholecystectomy 11/17. 11/19: patient developed sudden onset of severe right upper quadrant/flank pain. He denies any nausea or vomiting. He ate all his regular lunch tray this day. 11/20/16: Patient had placement of NG tube for gastric distension. Started on IV Zosyn and Vancomycin for possible aspiration PNA (febrile and requiring more oxygen). CT abdomen/pelvis shows stomach is significantly dilated, CHLORIN[employer] shunt extending from the chest into the right upper quadrant, trace fluid in the gallbladder fossa and small hematoma along liver edge findings consistent with recent open cholecystectomy, there is small amount of ascites. CXR showed PNA. 11/21: Abdominal pain improved and pt afebrile. Patient continued on Biliary leak suspected in HP scan -homogeneous uptake by the liver with normal excretion of radiotracer into the biliary system. Progressive abnormal accumulation of radiotracer in the right upper quadrant is noted with later images showing extension of the tracer into the right paracolic gutter. The abnormal accumulation of radiotracer in the right upper quadrant may be subcapsular. 11/22: Bilirrubin trending up to 2.9 from 2.4 yesterday. temp at 99.8. KUB showed resolved gastric distension. NGT removed. Vancomycin stopped. Diet resumed. 11/23: Patient underwent percutaneous placement of RUQ drain catheter with drainage of bilious fluid. CT abdomen and pelvis revealed increased amount of ascites suspected biloma. Appreciate surgery input. Patient continues to improve slowly (pain is better controlled, he slept well, draining clear biliary fluid to RUQ catheter, VS stable). Continue IV Zosyn (start date 11/20/16). Qualifiers: Abdominal location: generalized Qualified Code(s): R10.84 - Generalized abdominal pain (2) Biloma following surgery Current Visit: Yes Status: Acute Assessment and plan: plan as above Qualifiers: Encounter type: initial encounter Qualified Code(s): T81.89XA - Other complications of procedures, not elsewhere classified, initial encounter; K66.8 - Other specified disorders of peritoneum (3) Acute respiratory failure with hypoxemia Current Visit: Yes Status: Acute Assessment and plan: Secondary to aspiration PNA, pulmonary edema, atelectasis from poor inspiration due to abdominal distension and pain in the setting of emphysema/COPD. Pt had pneumina a few months ago and was sent home on oxygen but PCP stop oxygen 1 month ago. CTA chest showed moderate centrilobular emphysematous changes, mild atelectasis bilaterally, no consolidation. 11/20: pt had fever and chest x ray shows pleural effusion and bilateral airspace disease. Received Vancomycin from 11/20 to 11/22. Improved, he is tolerating well 2L NC. Completed antibiotic therapy. Continue oxygen and nebs. (4) Pneumonia Current Visit: Yes Status: Acute Assessment and plan: bacterial pneumonia, likely aspiration secondary to gastric dilation. plan as above. Qualifiers: Pneumonia type: aspiration pneumonia Aspiration pneumonia type: due to gastric secretions Laterality: bilateral Lung location: lower lobe of lung Qualified Code(s): J69.0 - Pneumonitis due to inhalation of food and vomit (5) Fluid overload Current Visit: Yes Status: Acute Assessment and plan: Secondary to IV fluid hydration (LE edema and pulmonary edema on 11/18/16). 11/18/16: Chest x-ray showed diffuse pulmonary vascular congestion. 11/19: Echocardiogram revealed LVEF 65%. 11/20 resolved. IV lasix stopped Qualifiers: Hypervolemia type: unspecified Qualified Code(s): E87.70 - Fluid overload, unspecified (6) Nausea and vomiting Current Visit: Yes Status: Acute Assessment and plan: resolved. due to pulmonary edema. Qualifiers: Vomiting type: unspecified Vomiting Intractability: non-intractable Qualified Code(s): R11.2 - Nausea with vomiting, unspecified (7) Pancreatitis, acute Current Visit: Yes Status: Acute Assessment and plan: resolved. unclear etiology. triglycerides at 61. no alcohol use. Patient presented with diffuse abdominal pain, lipase more than [address] abdomen/pelvis findings compatible with acute pancreatitis. CT abdomen/pelvis shows sludge in gallbladder, mild pericholecystic stranding and fluid, stranding a small volume of fluid around the head of the pancreas. us abdomen shows liver steatosis, gallbladder sludge, mild perihepatic ascites. EGD was normal. Qualifiers: Pancreatitis type: unspecified pancreatitis type Acute pancreatitis complication: unspecified Qualified Code(s): K85.90 - Acute pancreatitis without necrosis or infection, unspecified (8) A-fib Current Visit: Yes Status: Chronic Assessment and plan: rate is stable. holding Eliquis due to percutaneous drain catheter continue digoxin and metoprolol. Qualifiers: Atrial fibrillation type: paroxysmal Qualified Code(s): I48.0 - Paroxysmal atrial fibrillation (9) COPD (chronic obstructive pulmonary disease) Current Visit: Yes Status: Chronic Assessment and plan: continue symbicort, mucinex and nebs. Qualifiers: COPD type: unspecified COPD Qualified Code(s): J44.9 - Chronic obstructive pulmonary disease, unspecified (10) HTN (hypertension) Current Visit: Yes Status: Chronic Assessment and plan: stable. Qualifiers: Hypertension type: essential hypertension Qualified Code(s): I10 - Essential (primary) hypertension (11) Microcytic anemia Current Visit: Yes Status: Chronic Assessment and plan: has h/o long standing anemia possible 2/2 thalassemia. Ferritin level high. low iron and TSAT as noted in the iron panel. EGD did not show any active bleeding, but colonoscopy has a small ulcer in the cecum, non bleeding, that has been biopsied. Pathology reports diffusely ulcerated colonic mucosa with acute inflammation and granulation tissue with reactive changes. Negative for adenocarcinoma. hgb 9. Patient is hemodynamically stable. no external bleeding. (12) Constipation Current Visit: Yes Status: Resolved Assessment and plan: resolved Qualifiers: Constipation type: unspecified constipation type Qualified Code(s): K59.00 - Constipation, unspecified - Subjective Interval history: Pt is eating his breakfast with good appetite. - Constitutional Vitals: Temp Pulse Resp BP Pulse Ox 97.4 F L 61 16 113/66 94 L 11/26/16 07:44 11/26/16 07:44 11/26/16 08:02 11/26/16 07:44 11/26/16 08:02 General appearance: Present: cooperative, A&O X 3, pleasant, no acute distress, answers questions appropriately - Eye Eye exam: Present: sclera anicteric. Absent: PERRL - Respiratory Respiratory exam: Present: decreased breath sounds (at left lung base) - Cardiovascular Cardiovascular exam: Present: RRR - GI/Abdominal GI/Abdominal exam: Present: normal bowel sounds, soft. Absent: distended, tenderness - Extremities Exam Extremities exam: Present: pedal edema (ankle edema) - Back Exam Back exam: Absent: CVA tenderness (L), CVA tenderness (R) - Neurological Exam Neurological exam: Present: alert, oriented X3. Absent: facial droop, speech deficit - Skin Skin exam: Absent: rash Internal Medicine: Result - Labs CBC & Chem 7: 11/26/16 04:28 11/26/16 04:28 Labs: Short CBC 11/26/16 Range/Units 04:28 WBC 7.8 (4.3-11.1) K/mcL Hgb 9.0 L (12.9-16.9) g/dL Hct 28.1 L (37.5-50.1) % Plt Count 295 (140-400) K/mcL Neutrophils # 5.0 (1.6-8.9) K/mcL BMP 11/26/16 04:28 Sodium 137 Potassium 4.5 Chloride 105 Carbon Dioxide 25 BUN 7 L Creatinine 0.89 Glucose 92 Calcium 8.3 L Liver Function 11/26/16 Range/Units 04:28 Total Bilirubin 1.7 H (0.2-1.2) mg/dL Direct Bilirubin 1.0 H (0.0-0.5) mg/dL AST 21 (5-34) Units/L ALT 18 (0-55) Units/L Alkaline Phosphatase 215 H (38-126) Units/L Albumin 2.3 L (3.5-5.0) g/dL - ABG Interpretation ABG results: PT/INR, D-dimer PT 15.9 Seconds (9.4-12.1) H 11/20/16 15:54 - VTE Documentation of Mechanical Device: Intermittent pneumatic compression device Consult Discharge Plan - Plan Referrals: Rakan Tobias MD [Non-Partnered Physician] -
--- NOTE | 2016-11-26 12:00 | General Surgery Progress Note ---
Date of Encounter: 11/26/16 Time of Encounter: 11:50 Subjective Patient reports: no new complaints, feels better Narrative: Postoperative day 9: Patient feeling well, voicing no points. Patient and family indicate he "had a good night" Afebrile, pulse 64, respirations 17, blood pressure 102/54. Biliary drain - approximately 145 mL for 11/25/2016; scant so far today - the bile drainage has diminished rapidly consistent with evacuation of the intraperitoneal biloma and an indication that the bile leak has stopped. We will verify that with an HB scan in the morning. Lungs: Clear; good inspiratory effort with no abdominal pain with deep inspiration Abdomen: Soft, nontender; active bowel sounds. Patient with robust appetite consuming all breakfast. Laboratories: White count 7.8; hemoglobin stable at 9.0, hematocrit 28.1; platelet count 295,000. Bilirubin unchanged, 1.7, alkaline phosphatase has diminished to 215. Protein is diminished at 5.1 - expected to improve now the patient eating better. Impression: POD #9 - s/p laparoscopy, open cholecystectomy. Acceptable status. post op bile leak - appears controlled - repeat Hb scan in AM. If no leak may be able to remove drainage catheter soon hyperbilirubinemia - improved anemia - stable chronic hypoxia - believe patient back to baseline hypoproteinemia - likely due to prolonged pre and cindy operative illness. Objective Vital Signs - Last 8 Hours Temp Pulse Resp BP Pulse Ox 11/26/16 10:32 97.8 F 64 17 102/54 94 L 11/26/16 08:02 16 94 L 11/26/16 07:44 97.4 F L 61 14 113/66 94 L 11/26/16 04:38 16 92 L Intake and Output 11/25/16 11/26/16 11/26/16 23:59 07:59 15:59 Intake Total 220 / 220 300 / 300 Output Total 0 / 0 775 / 775 0 / 0 Balance 220 / 220 -475 / -475 0 / 0 Intake: IV Fluids 100 / 100 100 / 100 Zosyn 3.375 GM In 100 / 100 100 / 100 Dextrose 5% (Minibag+) 100 ML 100 ML @ 25 mls/hr IVPB Q8HR [facility] Rx#: [id number] Oral 120 / 120 200 / 200 Output: Urine 0 / 0 775 / 775 Wound Drainage 0 / 0 0 / 0 0 / 0 RUQ 0 / 0 0 / 0 0 / 0 Other: Meal Lunch Breakfast Percent of Meal Consumed 5% 100% Weight 84.2 kg Patient Weight 11/26/16 23:59 Weight 84.2 kg - Labs 11/26/16 04:28 11/26/16 04:28 Diabetes panel 11/26/16 11/26/16 Range/Units 04:28 04:28 Sodium 137 (136-145) mEq/L Potassium 4.5 (3.5-4.5) mEq/L Chloride 105 (98-109) mEq/L Carbon Dioxide 25 (19-29) mEq/L BUN 7 L (8-26) mg/dL Creatinine 0.89 (0.72-1.25) mg/dL Glucose 92 (70-99) mg/dL Calcium 8.3 L (8.6-10.8) mg/dL AST 21 (5-34) Units/L ALT 18 (0-55) Units/L Alkaline Phosphatase 215 H (38-126) Units/L Albumin 2.3 L (3.5-5.0) g/dL Calcium panel 11/26/16 11/26/16 Range/Units 04:28 04:28 Calcium 8.3 L (8.6-10.8) mg/dL Albumin 2.3 L (3.5-5.0) g/dL Pituitary panel 11/26/16 Range/Units 04:28 Sodium 137 (136-145) mEq/L Potassium 4.5 (3.5-4.5) mEq/L Chloride 105 (98-109) mEq/L Carbon Dioxide 25 (19-29) mEq/L BUN 7 L (8-26) mg/dL Creatinine 0.89 (0.72-1.25) mg/dL Glucose 92 (70-99) mg/dL Calcium 8.3 L (8.6-10.8) mg/dL Adrenal panel 11/26/16 11/26/16 Range/Units 04:28 04:28 Sodium 137 (136-145) mEq/L Potassium 4.5 (3.5-4.5) mEq/L Chloride 105 (98-109) mEq/L Carbon Dioxide 25 (19-29) mEq/L BUN 7 L (8-26) mg/dL Creatinine 0.89 (0.72-1.25) mg/dL Glucose 92 (70-99) mg/dL Calcium 8.3 L (8.6-10.8) mg/dL Total Bilirubin 1.7 H (0.2-1.2) mg/dL AST 21 (5-34) Units/L ALT 18 (0-55) Units/L Alkaline Phosphatase 215 H (38-126) Units/L Albumin 2.3 L (3.5-5.0) g/dL - VTE Documentation of Mechanical Device: Intermittent pneumatic compression device Consult Discharge Plan - Plan Referrals: Rakan Tobias MD [Non-Partnered Physician] -
[2016-11-26] MEDS: Melatonin 3 MG TABLET PO PRN (21:53)
[2016-11-27] MEDS: Acetaminophen 325 MG TABLET PO PRN ×3 (00:17→15:46)
[2016-11-27] MEDS: Piperacillin/Tazobactam 3.375 GM in D5% in Water (Mini-Bag+) 100 ML IVPB SCH ×4 (00:19→23:56)
[2016-11-27] MEDS: Ipratropium/Albuterol Neb 3 ML IH SCH ×5 (03:59→20:09)
[2016-11-27] MEDS: *HR* HYDROcodone/Acet 5/325 mg TABLET PO PRN ×4 (04:12→23:57)
[2016-11-27 05:16] LABS: Bilirubin,Total 1.6 mg/dL (0.2-1.2)
[2016-11-27] MEDS: Budesonide/Formoterol 160/4.5 MDI IH SCH ×2 (07:30→20:09)
[2016-11-27] MEDS: Gabapentin 300 MG CAPSULE PO SCH ×3 (08:51→20:20)
[2016-11-27] MEDS: *HR* Digoxin 0.125 MG TABLET PO SCH (08:52)
[2016-11-27] MEDS: Lactobacillus 1 EACH CAP.SPRINK PO SCH (08:52)
--- NOTE | 2016-11-27 15:47 | General Surgery Progress Note ---
Date of Encounter: 11/27/16 Time of Encounter: 15:41 Subjective Patient reports: feels better Narrative: POD #10 - patient complaining drain site pain Afeb, pulse 69, respiratory rate 18, BP 107/67 Lungs: Clear Abdomen: Soft, nontender; subcostal incision is clean dry and healing nicely. Percutaneous drainage - 8 mL 11/26/2016, none recorded today Hb scan demonstrated no evidence bile leak Impression/Plan : POD #10 - s/p laparoscopy, open cholecystectomy - patient continues to recover. Subcostal incision clean and healing well, removed rekha Postoperative bile leak - resolved; removed percutaneous drain Hyperbilirubinemia slowly resolving; 1.6 Persistent elevate alk phosphatase - 222 Hypoproteinemia. Objective Vital Signs - Last 8 Hours Temp Pulse Resp BP Pulse Ox 11/27/16 14:48 88 L 11/27/16 14:37 97.7 F 69 20 107/63 90 L 11/27/16 11:33 18 93 L 11/27/16 11:00 98 F 66 16 115/67 90 L Intake and Output 11/26/16 11/27/16 11/27/16 23:59 07:59 15:59 Intake Total 100 / 100 100 / 100 Output Total 158 / 158 1000 / 1000 0 / 0 Balance -58 / -58 -900 / -900 0 / 0 Intake: IV Fluids 100 / 100 100 / 100 Zosyn 3.375 GM In 100 / 100 100 / 100 Dextrose 5% (Minibag+) 100 ML 100 ML @ 25 mls/hr IVPB Q8HR [facility] Rx#: [id number] Oral 0 / 0 Output: Urine 150 / 150 1000 / 1000 0 / 0 Wound Drainage 8 / 8 0 / 0 0 / 0 RUQ 8 / 8 0 / 0 0 / 0 Other: Meal Dinner Percent of Meal Consumed 0% # Voids 1 # Bowel Movements 0 0 Weight 84.3 kg Patient Weight 11/27/16 23:59 Weight 84.3 kg - Labs 11/26/16 04:28 11/26/16 04:28 Diabetes panel 11/27/16 Range/Units 04:26 Alkaline Phosphatase 222 H (38-126) Units/L Adrenal panel 11/27/16 Range/Units 04:26 Total Bilirubin 1.6 H (0.2-1.2) mg/dL Alkaline Phosphatase 222 H (38-126) Units/L - VTE Documentation of Mechanical Device: Intermittent pneumatic compression device Consult Discharge Plan - Plan Referrals: Rakan Tobias MD [Non-Partnered Physician] -
--- NOTE | 2016-11-27 16:34 | Internal Med Progress Note ---
Date of Encounter: 11/27/16 Time of Encounter: 10:45 - Assessment and plan (1) Abdominal pain Current Visit: Yes Status: Acute Assessment and plan: 81 yo M with pmh of Atrial fibrillation on Eliquis, COPD no-oxygen dependant, HTN and chronic anemia. He presented to our ED on 11/10 complaining of right upper abdominal pain. lipase > 3000. CT abd/pelv showed acute pancreatitis. Us abdomen showed Gallbladder sludge and liver steatosis. He received IV fluids, IV pain meds and remained NPO. Patient continued to have moderate abdominal pain and underwent EGD (normal) and colonoscopy (cecum ulcer, biopsy negative for cancer). His pancreatitis improved and he underwent open cholecystectomy on 11/17. His post-operative course was complicated by gastric dilation that resolved after NGT placement and severe RUQ pain and elevated bilirrubin and alk phos, a repeat CT abdomen was suspected for biliary leak. He underwent percutaneous placement of RUQ drain catheter with drainage of bilious fluid. He continued to improve and RUQ catheter was removed 11/27. He completed IV zosyn for aspiration PNA. He also developed acute respiratory failure due to aspiration PNA, acute pancreatitis, and pulmonary edema due to fluid resuscitation which clinically resolved at discharge. His SaO2 remained low likely from moderate emphysema and he was sent home on Oxygen. Appreciate surgery input. RUQ catheter removed today. Patient continues to improve. may discharge to home tomorrow. Qualifiers: Abdominal location: generalized Qualified Code(s): R10.84 - Generalized abdominal pain (2) Biloma following surgery Current Visit: Yes Status: Acute Assessment and plan: plan as above Qualifiers: Encounter type: initial encounter Qualified Code(s): T81.89XA - Other complications of procedures, not elsewhere classified, initial encounter; K66.8 - Other specified disorders of peritoneum (3) Acute respiratory failure with hypoxemia Current Visit: Yes Status: Acute Assessment and plan: Secondary to aspiration PNA, pulmonary edema, atelectasis from poor inspiration due to abdominal distension and pain in the setting of emphysema/COPD. Pt had pneumina a few months ago and was sent home on oxygen but PCP stop oxygen 1 month ago. CTA chest showed moderate centrilobular emphysematous changes, mild atelectasis bilaterally, no consolidation. 11/20: pt had fever and chest x ray shows pleural effusion and bilateral airspace disease. Received Vancomycin from 11/20 to 11/22. Improved, he is tolerating well 2L NC. Completed antibiotic therapy. Continue oxygen and nebs. (4) Pneumonia Current Visit: Yes Status: Acute Assessment and plan: bacterial pneumonia, likely aspiration secondary to gastric dilation. plan as above. Qualifiers: Pneumonia type: aspiration pneumonia Aspiration pneumonia type: due to gastric secretions Laterality: bilateral Lung location: lower lobe of lung Qualified Code(s): J69.0 - Pneumonitis due to inhalation of food and vomit (5) Fluid overload Current Visit: Yes Status: Acute Assessment and plan: Secondary to IV fluid hydration (LE edema and pulmonary edema on 11/18/16). 11/18/16: Chest x-ray showed diffuse pulmonary vascular congestion. 11/19: Echocardiogram revealed LVEF 65%. 11/20 resolved. IV lasix stopped Qualifiers: Hypervolemia type: unspecified Qualified Code(s): E87.70 - Fluid overload, unspecified (6) Nausea and vomiting Current Visit: Yes Status: Acute Assessment and plan: resolved. due to pulmonary edema. Qualifiers: Vomiting type: unspecified Vomiting Intractability: non-intractable Qualified Code(s): R11.2 - Nausea with vomiting, unspecified (7) Pancreatitis, acute Current Visit: Yes Status: Acute Assessment and plan: resolved. unclear etiology. triglycerides at 61. no alcohol use. Patient presented with diffuse abdominal pain, lipase more than [address] abdomen/pelvis findings compatible with acute pancreatitis. CT abdomen/pelvis shows sludge in gallbladder, mild pericholecystic stranding and fluid, stranding a small volume of fluid around the head of the pancreas. us abdomen shows liver steatosis, gallbladder sludge, mild perihepatic ascites. EGD was normal. Qualifiers: Pancreatitis type: unspecified pancreatitis type Acute pancreatitis complication: unspecified Qualified Code(s): K85.90 - Acute pancreatitis without necrosis or infection, unspecified (8) A-fib Current Visit: Yes Status: Chronic Assessment and plan: rate is stable. holding Eliquis due to percutaneous drain catheter continue digoxin and metoprolol. Qualifiers: Atrial fibrillation type: paroxysmal Qualified Code(s): I48.0 - Paroxysmal atrial fibrillation (9) COPD (chronic obstructive pulmonary disease) Current Visit: Yes Status: Chronic Assessment and plan: CTA chest showed moderate centrilobular emphysematous changes. continue oxygen at home. symbicort, mucinex and nebs. Qualifiers: COPD type: unspecified COPD Qualified Code(s): J44.9 - Chronic obstructive pulmonary disease, unspecified (10) HTN (hypertension) Current Visit: Yes Status: Chronic Assessment and plan: stable. Qualifiers: Hypertension type: essential hypertension Qualified Code(s): I10 - Essential (primary) hypertension (11) Microcytic anemia Current Visit: Yes Status: Chronic Assessment and plan: has h/o long standing anemia possible 2/2 thalassemia. Ferritin level high. low iron and TSAT as noted in the iron panel. EGD did not show any active bleeding, but colonoscopy has a small ulcer in the cecum, non bleeding, that has been biopsied. Pathology reports diffusely ulcerated colonic mucosa with acute inflammation and granulation tissue with reactive changes. Negative for adenocarcinoma. hgb 9. Patient is hemodynamically stable. no external bleeding. (12) Constipation Current Visit: Yes Status: Resolved Assessment and plan: resolved Qualifiers: Constipation type: unspecified constipation type Qualified Code(s): K59.00 - Constipation, unspecified - Subjective Interval history: Patient reports abdominal pain is better. no nausea. no vomiting. - Constitutional Vitals: Temp Pulse Resp BP Pulse Ox 97.7 F 69 18 107/63 89 L 11/27/16 14:37 11/27/16 14:37 11/27/16 15:40 11/27/16 14:37 11/27/16 15:40 General appearance: Present: cooperative, A&O X 3, pleasant, no acute distress, answers questions appropriately - Eye Eye exam: Present: PERRL, sclera anicteric - Respiratory Respiratory exam: Present: CTAB - Cardiovascular Cardiovascular exam: Present: RRR - GI/Abdominal GI/Abdominal exam: Present: normal bowel sounds, soft, tenderness (mild in right upper quadrant.). Absent: distended Additional comments: RUQ catheter is draining minimal amount of biliary fluid. - Extremities Exam Extremities exam: Absent: pedal edema - Neurological Exam Neurological exam: Present: alert, oriented X3, no focal deficits, strengths equal and symetr throughout. Absent: facial droop, speech deficit - Skin Skin exam: Absent: rash Internal Medicine: Result - Labs CBC & Chem 7: 11/26/16 04:28 11/26/16 04:28 Labs: Liver Function 11/27/16 Range/Units 04:26 Total Bilirubin 1.6 H (0.2-1.2) mg/dL Alkaline Phosphatase 222 H (38-126) Units/L - ABG Interpretation ABG results: PT/INR, D-dimer PT 15.9 Seconds (9.4-12.1) H 11/20/16 15:54 - Impressions Impressions Bile Acid Absorption NM 11/27/16 00:01 IMPRESSION: No scintigraphic evidence of persistent bile leak. D/ / Ronnie Ashton MD / Ronnie Ashton MD Interpreting Provider: Ronnie Ashton MD - VTE Documentation of Mechanical Device: Intermittent pneumatic compression device Consult Discharge Plan - Plan Referrals: Rakan Tobias MD [Non-Partnered Physician] -
[2016-11-27] MEDS: Melatonin 3 MG TABLET PO PRN (23:57)
[2016-11-28] MEDS: Ipratropium/Albuterol Neb 3 ML IH SCH ×4 (00:02→11:40)
[2016-11-28 04:57] LABS: Basophils # 0.1 K/mcL (0.0-0.2); Basophils % 0.5 %; Eosinophils # 0.4 K/mcL (0.0-0.6); Eosinophils % 4.1 %; Hematocrit 30.7 % (37.5-50.1); Hemoglobin 9.5 g/dL (12.9-16.9); Immature Granulocytes % 0.7 % (0-4); Lymphocytes # 1.6 K/mcL (0.6-4.6); Lymphocytes % 15.5 %; Mean Corpuscular HGB Conc 30.9 g/dL (31.6-35.5); Mean Corpuscular Hemoglobin 19.5 pg (28.0-33.3); Mean Corpuscular Volume 62.9 fL (83.0-100.0); Mean Platelet Volume 9.8 fL (9.4-12.4); Monocytes % 9.9 %; Platelet Count 337 K/mcL (140-400); Red Blood Count 4.88 M/mcL (4.19-5.50); Red Cell Distribution Width 16.8 % (11.5-14.5); Segmented Neutrophils % 69.3 %
[2016-11-28 05:07] LABS: Neutrophils # 6.9 K/mcL (1.6-8.9)
[2016-11-28 05:14] LABS: Albumin 2.4 g/dL (3.5-5.0); Albumin/Globulin Ratio 0.8 (1.1-2.2); Total Protein 5.4 g/dL (6.0-8.3)
[2016-11-28 05:32] LABS: Anisocytosis 1+ (Not Present); Hypochromasia Present (Not Present); Microcytosis Present (Not Present); Target Cells 1+ (Not Present)
[2016-11-28 05:33] LABS: Platelet Estimate Normal (Normal); Tear Drop Cells 1+ (Not Present)
[2016-11-28] MEDS: *HR* HYDROcodone/Acet 5/325 mg TABLET PO PRN ×2 (06:14→12:15)
[2016-11-28 06:56] VITALS: BP 124/69
[2016-11-28] MEDS: Budesonide/Formoterol 160/4.5 MDI IH SCH (07:41)
--- NOTE | 2016-11-28 07:54 | Discharge Summary ---
Date of Encounter: 11/28/16 Time of Encounter: 07:51 - Discharge Diagnosis (1) Abdominal pain Priority: Primary Status: Acute Qualifiers: Abdominal location: generalized Qualified Code(s): R10.84 - Generalized abdominal pain (2) Biloma following surgery Priority: Primary Status: Acute Qualifiers: Encounter type: initial encounter Qualified Code(s): T81.89XA - Other complications of procedures, not elsewhere classified, initial encounter; K66.8 - Other specified disorders of peritoneum (3) Acute respiratory failure with hypoxemia Priority: Primary Status: Acute (4) Pneumonia Priority: Primary Status: Acute Qualifiers: Pneumonia type: aspiration pneumonia Aspiration pneumonia type: due to gastric secretions Laterality: bilateral Lung location: lower lobe of lung Qualified Code(s): J69.0 - Pneumonitis due to inhalation of food and vomit (5) Fluid overload Priority: Primary Status: Acute Qualifiers: Hypervolemia type: unspecified Qualified Code(s): E87.70 - Fluid overload, unspecified (6) Nausea and vomiting Priority: Primary Status: Acute Qualifiers: Vomiting type: unspecified Vomiting Intractability: non-intractable Qualified Code(s): R11.2 - Nausea with vomiting, unspecified (7) Pancreatitis, acute Priority: Primary Status: Acute Qualifiers: Pancreatitis type: unspecified pancreatitis type Acute pancreatitis complication: unspecified Qualified Code(s): K85.90 - Acute pancreatitis without necrosis or infection, unspecified (8) A-fib Priority: Secondary Status: Chronic Qualifiers: Atrial fibrillation type: paroxysmal Qualified Code(s): I48.0 - Paroxysmal atrial fibrillation (9) COPD (chronic obstructive pulmonary disease) Priority: Secondary Status: Chronic Qualifiers: COPD type: unspecified COPD Qualified Code(s): J44.9 - Chronic obstructive pulmonary disease, unspecified (10) HTN (hypertension) Priority: Secondary Status: Chronic Qualifiers: Hypertension type: essential hypertension Qualified Code(s): I10 - Essential (primary) hypertension (11) Microcytic anemia Priority: Secondary Status: Chronic (12) Constipation Priority: Primary Status: Resolved Qualifiers: Constipation type: unspecified constipation type Qualified Code(s): K59.00 - Constipation, unspecified - Discharge Medications Prescriptions: HYDROcodone/Acet 5/325 mg [[place] 5-325 mg] 1 tab PO Q6HR PRN #30 tablet PRN Reason: pain not relieved by Tylenol Budesonide/Formoterol 160/4.5 [Symbicort 160/4.5] 1 puff IH BIDR #2 hfa.aer.ad Ipratropium/Albuterol Neb [Duoneb] 3 ml IH QID #60 inhsol Nebulizer [Aeroeclipse] 1 each AD #1 each Home Medications: Albuterol Sulfate [Albuterol Inhaler] 2 puff IH QID PRN 11/10/16 [History] Apixaban [Eliquis] 5 mg PO BID 11/10/16 [History] Aspirin Enteric Coated [Aspirin EC] 81 mg PO DAILY 11/10/16 [History] Digoxin [Lanoxin] 0.125 mg PO DAILY 11/10/16 [History] Gabapentin [Neurontin] 600 mg PO TID 11/10/16 [History] Lidocaine 4% CRM (LMX) [Lmx 4] 1 appl TP TID 11/10/16 [History] Metoprolol [Lopressor] 50 mg PO BID 11/10/16 [History] Terazosin HCl 10 mg PO HS 11/10/16 [History] Budesonide/Formoterol 160/4.5 [Symbicort 160/4.5] 1 puff IH BIDR #2 hfa.aer.ad 11/28/16 [Rx] HYDROcodone/Acet 5/325 mg [[place] 5-325 mg] 1 tab PO Q6HR PRN #30 tablet [Rx] Ipratropium/Albuterol Neb [Duoneb] 3 ml IH QID #60 inhsol 11/28/16 [Rx] Nebulizer [Aeroeclipse] 1 each AD #1 each 11/28/16 [Rx] Allergies/Adverse Reactions: Allergies aspirin Adverse Reaction (Verified 11/10/16 19:50) Nausea codeine Adverse Reaction (Verified 11/10/16 19:50) Nausea Sulfa (Sulfonamide Antibiotics) Adverse Reaction (Verified 11/10/16 19:50) Hives Procedures/tests Complete & Pending: Procedures Performed prior 72 hours Category Date Time Status NM hepatobiliary [NM] Routine Exams 11/27/16 00:01 Completed Date of admission: 11/10/16 22:27 Primary care physician: PCP [place] Consults: 11/10/16 23:31 Consult to Nutrition [CONS] Routine Comment: Consulting Provider: NUTRITION Reason for Dietary Consult: MST Score 11/15/16 09:30 Consult to Surgery [CONS] Routine Consulting Provider: [facility] Reason for Consult: please evaluate for possible cholecystectomy in this patient with GB sludge admitted for acute pancreatitis. thank you Call Completed: Yes 11/18/16 00:01 Consult to Physical Therapy [CONS] Routine Comment: Evaluate, develop and implement POC OT [Consult to Occupational Therapy] [CONS] Routine Comment: Evaluate, develop and implement POC 11/21/16 09:01 Consult to Respiratory Therapy [CONS] Routine Reason for Consult: pulmonary toilet Call Completed: No 11/23/16 13:21 Consult to Interventional Radiology [CONS] Routine Consulting Provider: Radiology Interventional Cols Reason for Consult: increasing cindy hepatic fluid / bile ; request for percutaneous placement drain Time Notified: 13:15 Call Completed: Yes - Patient Status Disposition: Home Health Service Condition: Good Functional capacity at discharge: uses cane/walker Overall status at discharge: patient is progressing back to baseline - Discharge Instructions Follow Up With: Rakan Sainz MD [Non-Partnered Physician] - (pt will go to see dr sainz this coming sunday. f/u with pcp in 1 week) Additional Instructions: check your blood pressure daily, make a log and bring it to primary care doctor appointment - Diet and Activity Activity: resume usual activities as tolerated, wear oxygen at all times Diet: regular diet (ensure tid) Interval History: RUQ pain is adequate Hospital course: Mr. John is a 81 year old male with pmh of Atrial fibrillation on Eliquis, COPD no-oxygen dependant, HTN and chronic anemia. He presented to our ED on complaining of right upper abdominal pain. lipase > 3000. CT abd/pelv showed acute pancreatitis. Us abdomen showed Gallbladder sludge and liver steatosis. He received IV fluids, IV pain meds and remained NPO. Patient continued to have moderate abdominal pain and underwent EGD (normal) and colonoscopy (cecum ulcer , biopsy negative for cancer). His pancreatitis improved and he underwent open cholecystectomy on 11/17. His post-operative course was complicated by gastric dilation that resolved after NGT placement and severe RUQ pain and elevated bilirrubin and alk phos, a repeat CT abdomen was suspected for biliary leak. He underwent percutaneous placement of RUQ drain catheter with drainage of bilious fluid. He continued to improve and RUQ catheter was removed 11/27. He completed IV zosyn therapy. He also developed acute respiratory failure due to aspiration PNA, acute pancreatitis, and pulmonary edema due to fluid resuscitation which clinically resolved at discharge. His SaO2 remained low likely from moderate emphysema and he was sent home on Oxygen. PLAN: F/u with Dr Sainz on 12/04/16. f/u with PCP for afib, COPD (PFTs), HTN and anemia. - Time Spent with Patient Total time spent providing and/or coordinating discharge services: - Constitutional Vitals: Temp Pulse Resp BP Pulse Ox 97.9 F 67 16 124/69 95 11/28/16 06:54 11/28/16 06:54 11/28/16 07:42 11/28/16 06:54 11/28/16 07:42 General appearance: Present: cooperative, A&O X 3, pleasant, no acute distress, answers questions appropriately - Eye Eye exam: Present: PERRL, sclera anicteric - Neck Neck exam general surgery: Present: supple, trachea midline. Absent: lymphadenopathy - Respiratory Respiratory exam: Present: CTAB - Cardiovascular Cardiovascular exam: Present: RRR - GI/Abdominal GI/Abdominal exam: Present: normal bowel sounds, soft. Absent: distended, tenderness Additional comments: surgical scar is intact - Extremities Exam Extremities exam: Present: pedal edema (ankle edema) - Back Exam Back exam: Absent: CVA tenderness (L), CVA tenderness (R) - Neurological Exam Neurological exam: Present: alert, oriented X3, no focal deficits, strengths equal and symetr throughout. Absent: facial droop, speech deficit - Skin Skin exam: Absent: rash - VTE Documentation of Mechanical Device: Intermittent pneumatic compression device
--- NOTE | 2016-11-28 08:14 | Physician Discharge Referral ---
Home Health/Hosp Referral Info Transfer to: Home Health Attending Provider: shea Provider in Charge Post Discharge: PCP - Diagnosis (1) Abdominal pain Status: Acute (2) Biloma following surgery Status: Acute (3) Acute respiratory failure with hypoxemia Status: Acute (4) Pneumonia Status: Acute (5) Fluid overload Status: Acute (6) Nausea and vomiting Status: Acute (7) Pancreatitis, acute Status: Acute (8) A-fib Status: Chronic (9) COPD (chronic obstructive pulmonary disease) Status: Chronic (10) HTN (hypertension) Status: Chronic (11) Microcytic anemia Status: Chronic (12) Constipation Status: Resolved - Respiratory Orders Oxygen / L per min (2) Smoking Cessation: Smoking cessation has been advised. For more information, call the [place] Tobacco Quit Line at 5-682-PEFV-NOW. - Diet/Nutrition Diet/Nutrition Orders: Regular (ensure tid) - Activity Activity Orders: Walker - Services Needed Following services are medically necessary services: Nursing, Home Health Aide, Physical Therapy, Occupational Therapy - Transfer Medications Prescriptions: HYDROcodone/Acet 5/325 mg [[place] 5-325 mg] 1 tab PO Q6HR PRN #30 tablet PRN Reason: pain not relieved by Tylenol Budesonide/Formoterol 160/4.5 [Symbicort 160/4.5] 1 puff IH BIDR #2 hfa.aer.ad Ipratropium/Albuterol Neb [Duoneb] 3 ml IH QID #60 inhsol Nebulizer [Aeroeclipse] 1 each AD #1 each Home Medications: Albuterol Sulfate [Albuterol Inhaler] 2 puff IH QID PRN 11/10/16 [History] Apixaban [Eliquis] 5 mg PO BID 11/10/16 [History] Aspirin Enteric Coated [Aspirin EC] 81 mg PO DAILY 11/10/16 [History] Digoxin [Lanoxin] 0.125 mg PO DAILY 11/10/16 [History] Gabapentin [Neurontin] 600 mg PO TID 11/10/16 [History] Lidocaine 4% CRM (LMX) [Lmx 4] 1 appl TP TID 11/10/16 [History] Metoprolol [Lopressor] 50 mg PO BID 11/10/16 [History] Terazosin HCl 10 mg PO HS 11/10/16 [History] Budesonide/Formoterol 160/4.5 [Symbicort 160/4.5] 1 puff IH BIDR #2 hfa.aer.ad 11/28/16 [Rx] HYDROcodone/Acet 5/325 mg [[place] 5-325 mg] 1 tab PO Q6HR PRN #30 tablet [Rx] Ipratropium/Albuterol Neb [Duoneb] 3 ml IH QID #60 inhsol 11/28/16 [Rx] Nebulizer [Aeroeclipse] 1 each AD #1 each 11/28/16 [Rx] Allergies/Adverse Reactions: Allergies aspirin Adverse Reaction (Verified 11/10/16 19:50) Nausea codeine Adverse Reaction (Verified 11/10/16 19:50) Nausea Sulfa (Sulfonamide Antibiotics) Adverse Reaction (Verified 11/10/16 19:50) Hives Certification: Further, I certify that my clinical findings support that this patient is homebound (i.e. absences from home require considerable and taxing effort and are for medical reasons or church services or infrequently or short duration when for other reasons) because: Homebound Reason: Patient requires assistance of a person or device to safely leave home, Leaving home requires considerable and taxing effort due to condition, Severity of cardiac or pulmonary status limits activity tolerance Attestation: My signature below is to certify that this patient is under my care and that I, or nurse practitioner, or a physician's medical staff assistant working with me, has a face-to -face encounter with this patient.
[2016-11-28] MEDS: Gabapentin 300 MG CAPSULE PO SCH (08:27)
[2016-11-28] MEDS: Piperacillin/Tazobactam 3.375 GM in D5% in Water (Mini-Bag+) 100 ML IVPB SCH (08:27)
[2016-11-28] MEDS: Lactobacillus 1 EACH CAP.SPRINK PO SCH (08:28)
[2016-11-28] MEDS: *HR* Digoxin 0.125 MG TABLET PO SCH (08:28)
[2016-11-28] MEDS: Acetaminophen 325 MG TABLET PO PRN (08:34)
== END 2016-11-28 12:54 | disposition home health service (06) | DRG 414 ==
LOC: EMEROO 19:40 → SUATTDRO 22:27 → 3ANU 22:27
PROVIDERS: ADMIT Internal Medicine; ATTEND Internal Medicine
PROC: IRDRAIN (2016-11-23 13:45)